=== PATIENT | male | born 1930 | race Caucasian/White ===

== ENCOUNTER 2016-03-18 14:58 | Inpatient (IN) | payer OTHER ==
--- NOTE | 2016-03-18 15:23 | PDOC ---
History of Present Illness - General History Source: Patient Exam Limitations: No Limitations - History of Present Illness Initial Comments: 03/18/16 15:51 The patient is an 85-year-old man, from [facility], accompanied by daughter, with a significant past medical history of COPD (requiring past intubations; on home O2 dependent on 2.5 L), hypertension, hypercholesterolemia , coronary artery disease, myocardial infarction, congestive heart failure, diabetes mellitus, atrial fibrillation, GERD and skin Ca who presents to the emergency department via EMS for evaluation of a blocked suprapubic catheter. 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 Patient's catheter was changed to a 24 Spanish catheter. Patient expresses concern as he noted blood in his urine, for which he has never experienced before. No other complaints. He denies chest pain, cough, shortness of breath, headache He denies nausea, vomiting, diarrhea dysuria, urinary frequency/urgency, flank pain, testicular pain or penile discharge. Allergies: Atenalol. Sulfamethoxazole. Trimethoprim. Past Surgical History: Cholecystectomy. Appendectomy. Stent Placement. Bilateral knee replacements. Left hip replacement Social History: He denies tobacco, ETOH and recreational drug use. Primary Care Physician: Dr. Asya Sharma [phone] <Kendra España - Last Filed: 03/18/16 18:27> <Zach Long - Last Filed: 03/18/16 18:39> - General Chief Complaint: Urinary Catheter Problem Stated Complaint: CATHERER BLEED Past History <Kendra España - Last Filed: 03/18/16 18:27> - Past Medical History Anemia: No Asthma: No Cancer: Yes (Skin) Cardiac Disorders: Yes (PA-2000, A-Fib) CVA: No COPD: Yes CHF: No Dementia: No Diabetes: Yes Dialysis: No GI Disorders: Yes (GERD) Disorders: Yes (suprapubic cath,bph, uti,retention) HTN: Yes Hypercholesterolemia: Yes Liver Disease: No Psychiatric Problems: Yes (anxiety) Seizures: No Thyroid Disease: No - Surgical History Abdominal Surgery: Yes (gallbladder removed) Appendectomy: Yes Cardiac Surgery: No (CARDIAC STENTS- 2000) Cholecystectomy: Yes Lung Surgery: No (BRONCHIAL THERMOPLASTY 2010) Neurologic Surgery: No Orthopedic Surgery: Yes (CAROLANN KNEE REPLACEMENT-2012,LEFT HIP REPLACEMENT-2011) - Immunization History Immunization Up to Date: No - Psycho/Social/Smoking Cessation Hx Anxiety: No Suicidal Ideation: No Smoking Status: No Smoking History: Never smoked Have you smoked in the past 12 months: No Number of Cigarettes Smoked Daily: 0 Information on smoking cessation initiated: No Hx Alcohol Use: No Drug/Substance Use Hx: No Substance Use Type: None Hx Substance Use Treatment: No <Zach Long - Last Filed: 03/18/16 18:39> - Past Medical History Allergies/Adverse Reactions: Allergies Allergy/AdvReac Type Severity Reaction Status Date / Time atenolol [From Tenormin] Allergy Intermediate RESPIRATORY Verified 03/18/16 15: 07 DISTRESS sulfamethoxazole Allergy Mild Rash Verified 03/18/16 15:07 [From Bactrim] trimethoprim [From Bactrim] Allergy Mild Rash Verified 03/18/16 15:07 BETABLOCKERS Allergy Uncoded 03/18/16 15:07 Home Medications: Ambulatory Orders Arformoterol Tartrate [Brovana -] 1 amp NEB BID amp 02/12/16 Clopidogrel Bisulfate [Plavix -] 75 mg PO DAILY tablet 02/12/16 Escitalopram Oxalate [Lexapro -] 20 mg PO DAILY tablet 02/12/16 Furosemide [Lasix -] 40 mg PO BID@0600,1400 tablet 02/12/16 Gabapentin [Neurontin -] 300 mg PO QID capsule 02/12/16 Insulin (Levemir) [Levemir Vial] 20 units SQ AM ml 02/12/16 Montelukast Na [Singulair -] 10 mg PO DAILY tablet 02/12/16 Pantoprazole Sodium [Protonix -] 40 mg PO DAILY tablet.ec 02/12/16 Albuterol 2.5/Ipratropium 0.5 [Duoneb -] 1 neb IH QID 03/01/16 Amlodipine Besylate [Norvasc -] 5 mg PO DAILY 03/01/16 Docusate Sodium [Colace -] 100 mg PO BID 03/01/16 Insulin (Levemir) [Levemir Vial] 12 units SQ HS 03/01/16 Insulin Lispro [Humalog] 100 unit SQ ASDIR 03/01/16 Oxybutynin Chloride [Oxybutynin Chloride ER] 5 mg PO DAILY 03/01/16 Potassium Chloride Oral Soln [KCl Oral Solution -] 20 meq PO BID 03/01/16 Acetaminophen [Tylenol .Regular Strength -] 325 mg PO Q12H PRN #0 tablet Albuterol 0.083% Nebulizer Sydni [Ventolin 0.083% Nebulizer Soln -] 1 amp NEB Q3H PRN #0 amp 03/09/16 Oxycodone HCl/Acetaminophen [Percocet 10-325 mg Tablet] 1 each PO BID PRN #30 03/09/16 Prednisone [Deltasone -] 40 mg PO DAILY #0 03/09/16 Review of Systems - Review of Systems Able to Perform ROS?: Yes Comments:: 03/18/16 15:49 GENERAL/CONSTITUTIONAL: No fever or chills. No weakness. HEAD, EYES, EARS, NOSE AND THROAT: No change in vision. No ear pain or discharge. No sore throat. CARDIOVASCULAR: No chest pain or shortness of breath. RESPIRATORY: No cough, wheezing, or hemoptysis. GASTROINTESTINAL: No nausea, vomiting, diarrhea or constipation. GENITOURINARY: Yes: +Catheter issues. +Hematuria. No dysuria, frequency. MUSCULOSKELETAL: No joint or muscle swelling or pain. No neck or back pain. SKIN: No rash NEUROLOGIC: No headache, vertigo, loss of consciousness, or change in strength/ sensation. ENDOCRINE: No increased thirst. No abnormal weight change. HEMATOLOGIC/LYMPHATIC: No anemia, easy bleeding, or history of blood clots. ALLERGIC/IMMUNOLOGIC: No hives or skin allergy. <Kendra España - Last Filed: 03/18/16 18:27> *Physical Exam - Vital Signs Last Vital Signs Temp Pulse Resp BP Pulse Ox 98.3 F 110 H 18 129/70 96 03/18/16 15:02 03/18/16 15:02 03/18/16 15:02 03/18/16 15:02 03/18/16 15:02 - Physical Exam Comments: 03/18/16 15:50 GENERAL: Awake, alert, and fully oriented, in no acute distress HEAD: No signs of trauma EYES: PERRLA, EOMI, sclera anicteric, conjunctiva clear ENT: Auricles normal inspection, hearing grossly normal, nares patent, oropharynx clear without exudates. Moist mucosa NECK: Normal ROM, supple, no lymphadenopathy, JVD, or masses LUNGS: Breath sounds equal, clear to auscultation bilaterally. No wheezes, and no crackles HEART: Regular rate and rhythm, normal S1 and S2, no murmurs, rubs or gallops ABDOMEN: Soft, there is suprapubic tenderness to palpation. Normoactive bowel sounds. No guarding, no rebound. No masses. : +Goldberg present in the penis with noted blood in the urine. EXTREMITIES: Normal range of motion, no edema. No clubbing or cyanosis. No cords, erythema, or tenderness NEUROLOGICAL: Cranial nerves II through XII grossly intact. Normal speech <Kendra España - Last Filed: 03/18/16 18:27> - Vital Signs Last Vital Signs Temp Pulse Resp BP Pulse Ox 98.3 F 110 H 18 129/70 96 03/18/16 15:02 03/18/16 15:02 03/18/16 15:02 03/18/16 15:02 03/18/16 15:02 <Zach Long - Last Filed: 03/18/16 18:39> ED Treatment Course - LABORATORY CBC & Chemistry Diagram: 03/18/16 15:41 03/18/16 16:40 <Kendra España - Last Filed: 03/18/16 18:27> - LABORATORY CBC & Chemistry Diagram: 03/18/16 15:41 03/18/16 16:40 <Zach Long - Last Filed: 03/18/16 18:39> *DC/Admit/Observation/Transfer - Attestations Scribe Attestion: 03/18/16 15:50 Documentation prepared by Kendra España, acting as medical art therapist for Zach Long MD. <Kendra España - Last Filed: 03/18/16 18:27> - Discharge Dispostion Admit: Yes <Zach Long - Last Filed: 03/18/16 18:39> Diagnosis at time of Disposition: Urinary tract infection, Recurrent urinary tract infection - Discharge Dispostion Condition at time of disposition: Guarded - Referrals Referrals: Asya Sharma MD [Primary Care Provider] -
[2016-03-18 16:02] LABS: MCHC 31.5 g/dl (32.0-35.9); MEAN CELL VOLUME 82.7 fl (80-96); MEAN PLT VOLUME 7.7 fl (7.5-11.1); PLATELET COUNT 280 K/MM3 (134-434); RDW 18.1 % (11.9-15.9); WHITE BLOOD COUNT 13.4 K/mm3 (4.0-10.0)
[2016-03-18 16:11] LABS: URINE APPEARANCE CLOUDY; URINE BILIRUBIN NEGATIVE (NEGATIVE); URINE BLOOD 3+ (NEGATIVE); URINE COLOR YELLOW; URINE GLUCOSE (UA) NEGATIVE (NEGATIVE); URINE KETONE NEGATIVE (NEGATIVE); URINE LEUK ESTERASE 3+ (NEGATIVE); URINE NITRITE NEGATIVE (NEGATIVE); URINE PROTEIN 2+ (NEGATIVE); URINE UROBILINOGEN NEGATIVE E.U./dl (0.2-1.0)
[2016-03-18 16:19] LABS: URINE BACTERIA RARE /hpf (NONE SEEN); URINE MUCUS RARE; URINE RBC 1243 /hpf (0-3); URINE WBC 36 /hpf (3-5)
[2016-03-18 16:37] LABS: PLATELET ESTIMATE ADEQUATE (NORMAL)
[2016-03-18 17:19] LABS: ANION GAP 8 (8-16); CALCIUM 9.2 mg/dL (8.5-10.1); CO2 35 mmol/L (21-32); CREATININE 0.9 mg/dL (0.7-1.3); GLUCOSE,RANDOM 251 mg/dL (74-106); SGOT/AST 14 U/L (15-37); SGPT/ALT 31 U/L (12-78)
[2016-03-18 17:20] LABS: ALK PHOS 107 U/L (45-117); BILIRUBIN,TOTAL 0.4 mg/dL (0.2-1.0); TOT PROT 5.9 g/dl (6.4-8.2)
[2016-03-18] MEDS ORDERED: VANCOMYCIN 1,000 MG in DEXTROSE 5%-WATER - 250 ML IVPB ONE (17:34)
[2016-03-18] MEDS ORDERED: VANCOMYCIN 1 GRAM (PRE-DOCKED) 250 ML IVPB ONE (17:37)
[2016-03-18] MEDS ORDERED: GENTAMICIN INJECTION 120 MG in DEXTROSE 5%-WATER - 250 ML IVPB SCH (17:45)
[2016-03-18] MEDS ORDERED: GENTAMICIN INJECTION 120 MG in DEXTROSE 5%-WATER - 250 ML IVPB ONE (17:49)
[2016-03-18] MEDS ORDERED: oxyCODONE HCL 5 MG TABLET PO PRN (20:00)
[2016-03-18] MEDS ORDERED: ACETAMINOPHEN 325 MG TABLET (FP) PO PRN (20:00)
[2016-03-18] MEDS: ERTAPENEM SODIUM 1 GM in SODIUM CHLORIDE 50 ML IVPB SCH (20:22)
[2016-03-18] MEDS: ALBUTEROL SO4 0.083% IH SOL 2.5 MG/3 ML VIAL.NEB. NEB PRN (22:57)
[2016-03-18] MEDS: POTASSIUM CHLORIDE 40 MEQ/30 ML UNIT DOSE CUP PO SCH (23:09)
[2016-03-18] MEDS: DOCUSATE SODIUM 100 MG CAPSULE (FP) PO SCH (23:09)
[2016-03-18] MEDS: GABAPENTIN 300 MG CAPSULE (FP) PO SCH (23:10)
[2016-03-18] MEDS: ACETAMINOPHEN 325 MG TABLET (FP) PO PRN (23:10)
[2016-03-18] MEDS: INSULIN DETEMIR 100 UNITS/ML MDV SQ SCH (23:11)
[2016-03-19 01:37] VITALS: BMI 30.9
[2016-03-19] MEDS: ALBUTEROL SO4 0.083% IH SOL 2.5 MG/3 ML VIAL.NEB. NEB PRN ×2 (02:24→07:01)
[2016-03-19] MEDS ORDERED: FUROSEMIDE 40 MG TABLET (FP) PO SCH (06:00)
[2016-03-19] MEDS: INSULIN DETEMIR 100 UNITS/ML MDV SQ SCH ×2 (06:43→21:55)
[2016-03-19] MEDS: INSULIN SLIDING SCALE (NOVOLOG) 1 VIAL SQ SCH ×3 (06:44→18:12)
[2016-03-19 08:24] LABS: EOSINOPHIL 1.9 % (0-4.5); MCH 27.2 pg (25.7-33.7); MCHC 32.6 g/dl (32.0-35.9); MEAN CELL VOLUME 83.3 fl (80-96); MEAN PLT VOLUME 7.3 fl (7.5-11.1); NEUTROPHILS 83.4 % (42.8-82.8); PLATELET COUNT 266 K/MM3 (134-434); RDW 18.2 % (11.9-15.9); WHITE BLOOD COUNT 11.5 K/mm3 (4.0-10.0)
[2016-03-19 08:41] LABS: ALBUMIN 2.9 g/dl (3.4-5.0); ALK PHOS 94 U/L (45-117); ANION GAP 6 (8-16); BILIRUBIN,TOTAL 0.5 mg/dL (0.2-1.0); CALCIUM 9.2 mg/dL (8.5-10.1); CO2 38 mmol/L (21-32); CREATININE 0.7 mg/dL (0.7-1.3); GLUCOSE,RANDOM 121 mg/dL (74-106); SGOT/AST 12 U/L (15-37); SGPT/ALT 28 U/L (12-78); TOT PROT 5.8 g/dl (6.4-8.2)
[2016-03-19] MEDS ORDERED: predniSONE 20 MG TABLET (UD) PO SCH (10:00)
[2016-03-19] MEDS ORDERED: PATIENT'S OWN MEDICATION (NON-FORMULARY) (Oxybutynin Chloride [Oxybutynin Chloride Er] 5 M PO SCH (10:00)
[2016-03-19] MEDS: ESCITALOPRAM OXALATE 20 MG TABLET (FP) PO SCH (10:29)
[2016-03-19] MEDS: MONTELUKAST NA 10 MG TABLET PO SCH (10:29)
[2016-03-19] MEDS: CLOPIDOGREL BISULFATE 75 MG TABLET (FP) PO SCH (10:29)
[2016-03-19] MEDS: PANTOPRAZOLE 40 MG TABLET (FP) PO SCH (10:29)
[2016-03-19] MEDS: SOLIFENACIN SUCCINATE 5 MG TAB (FP) PO SCH (10:29)
[2016-03-19] MEDS: GABAPENTIN 300 MG CAPSULE (FP) PO SCH ×4 (10:29→21:54)
[2016-03-19] MEDS: POTASSIUM CHLORIDE 40 MEQ/30 ML UNIT DOSE CUP PO SCH ×2 (10:29→21:54)
[2016-03-19] MEDS: DOCUSATE SODIUM 100 MG CAPSULE (FP) PO SCH ×2 (10:29→21:54)
[2016-03-19] MEDS: amLODIPine BESYLATE 5 MG TABLET (FP) PO SCH (10:29)
[2016-03-19] MEDS: ERTAPENEM SODIUM 1 GM in SODIUM CHLORIDE 50 ML IVPB SCH (10:30)
--- NOTE | 2016-03-19 10:44 | CONSULT ---
Consultation: REQUESTING PROVIDER: CONSULT REQUEST: We have been asked to medically evaluate this patient for UTI HISTORY OF PRESENT ILLNESS: History obtained from the chart, patient unable to speak a full sentence due to respiratory distress. 85 year old male was brought in from [facility] because of blocked suprapubic catheter. He was recently admitted at [facility] ( 03/03/2016) Patient's catheter was changed to a 24 [place] catheter on 02/01/2016. Patient now complaints of shortness of breath and palpitations. Denies chest pain, cough, abdominal pain, nausea or vomiting. Patient had severe respiratory distress this morning. Dr. Cuadra and Dr. Young were informed. Ordered IV Solumedrol 125mg and CXR (reports pending). Past Medical Hx: Restrictive lung disease x 30 years, A-fib, , H/O of klebsiella ESBL, h/o of C.diff, recent ICU admission for pneumonia, COPD on home Oxygen, Dependent on 2.5 L (Intubated once last year due to AE COPD), CHF, HTN, DM x 1 year, urinary and stool incontinence. Allergies: Atenolol, sulfamethoxazole, trimethoprim, Beta Blockers Surgical History: Left Hip replacement, B/L knee replacement, suprapubic catheter Hospitalization: 11 admissions in 2016. Last hospitalized 03/03/2016 for UTI Social Hx: Former Smoker Occassional alcohol intake No illicit drug use PCP: Dr. Asya Sharma [phone] REVIEW OF SYSTEMS: CONSTITUTIONAL: Absent: fever, chills, diaphoresis, generalized weakness, malaise, loss of appetite, weight change HEENT: Absent: rhinorrhea, nasal congestion, throat pain, throat swelling, difficulty swallowing, mouth swelling, ear pain, eye pain, visual changes CARDIOVASCULAR: Present: palpitations Absent: chest pain, syncope, , irregular heart rate, lightheadedness, peripheral edema RESPIRATORY: Present: shortness of breath Absent: cough, , dyspnea with exertion, orthopnea, wheezing, stridor, hemoptysis GASTROINTESTINAL: Absent: abdominal pain, abdominal distension, nausea, vomiting, diarrhea, constipation, melena, hematochezia GENITOURINARY: Absent: dysuria, frequency, urgency, hesitancy, hematuria, flank pain, genital pain MUSCULOSKELETAL: Absent: myalgia, arthralgia, joint swelling, back pain, neck pain SKIN: Absent: rash, itching, pallor HEMATOLOGIC/IMMUNOLOGIC: Absent: easy bleeding, easy bruising, lymphadenopathy, frequent infections ENDOCRINE: Absent: unexplained weight gain, unexplained weight loss, heat intolerance, cold intolerance NEUROLOGIC: Absent: headache, focal weakness or paresthesias, dizziness, unsteady gait, seizure, mental status changes, bladder or bowel incontinence PSYCHIATRIC: Absent: anxiety, depression, suicidal or homicidal ideation, hallucinations. PHYSICAL EXAMINATION Vital Signs - 24 hr 03/18/16 03/18/16 03/19/16 20:41 22:30 02:14 Temperature 98.3 F 98.3 F 98.2 F Pulse Rate 100 H 107 H Pulse Rate [ 87 Left Radial] Respiratory 20 20 22 Rate Blood Pressure 122/65 155/85 Blood Pressure 130/80 [Left Arm] O2 Sat by Pulse 99 Oximetry (%) 03/19/16 06:00 Temperature 98 F Pulse Rate 108 H Pulse Rate [ Left Radial] Respiratory 22 Rate Blood Pressure 154/86 Blood Pressure [Left Arm] O2 Sat by Pulse Oximetry (%) GENERAL: Patient lying 30 degrees in bed, obese, Awake, alert, and fully oriented, in moderate respiratory distress, nasal canula @ 4L, suprapubic catheter in place draining yellow urine. HEAD: Normal with no signs of trauma. EYES: EOM intact, no pallor or icterus. EARS, NOSE, THROAT: Ears normal NECK: Supple LUNGS: Gurgling sound heard, B/L coarse breath sounds, fine basal crackles, no wheeze HEART: Irregularly irregular, Tachycardic, normal S1 and S2 without murmur, rub or gallop. ABDOMEN: Umbilical hernia, Suprapubic catheter, Soft, nontender,distended +, normoactive bowel sounds, no guarding, no rebound, no masses. Hepatosplenomegaly couldn't be appreciated. MUSCULOSKELETAL: Normal range of motion at all joints. No bony deformities or tenderness. No CVA tenderness. UPPER EXTREMITIES: 2+ pulses, warm, well-perfused. No cyanosis. No clubbing. Cap refill <2 seconds. No peripheral edema. LOWER EXTREMITIES: 2+ pulses, warm, well-perfused. No calf tenderness. No peripheral edema. Decubiti ulcer Stage 1 NEUROLOGICAL: Cranial nerves II-XII intact. Unable to complete a sentence due to SOB but speech clear. Gait not observed PSYCHIATRIC: Cooperative. Good eye contact. SKIN: Warm, dry, normal turgor, no rashes or lesions noted. Laboratory Results - last 24 hr 03/18/16 03/19/16 03/19/16 23:05 05:36 07:30 WBC 11.5 H RBC 4.96 Hgb 13.5 Hct 41.3 MCV 83.3 MCHC 32.6 RDW 18.2 H Plt Count 266 MPV 7.3 L Neutrophils % 83.4 H Lymphocytes % 8.1 D Monocytes % 5.6 Eosinophils % 1.9 D Basophils % 1.0 Sodium Potassium Chloride Carbon Dioxide Anion Gap BUN Creatinine Creat Clearance w eGFR POC Glucometer 209 129 Random Glucose Calcium Total Bilirubin AST ALT Alkaline Phosphatase Total Protein Albumin 03/19/16 07:30 WBC RBC Hgb Hct MCV MCHC RDW Plt Count MPV Neutrophils % Lymphocytes % Monocytes % Eosinophils % Basophils % Sodium 145 Potassium 3.6 Chloride 101 Carbon Dioxide 38 H Anion Gap 6 L BUN 20 H Creatinine 0.7 D Creat Clearance w eGFR > 60 POC Glucometer Random Glucose 121 H D Calcium 9.2 Total Bilirubin 0.5 D AST 12 L ALT 28 Alkaline Phosphatase 94 Total Protein 5.8 L Albumin 2.9 L Active Medications Generic Name Dose Route Start Last Admin Trade Name Freq PRN Reason Stop Dose Admin Acetaminophen 650 mg 03/18/16 19:33 03/18/16 23:10 Tylenol - PO 650 mg Q6H PRN Administration FEVER OR PAIN Acetaminophen 325 mg 03/18/16 20:00 Tylenol - PO Q12H PRN FEVER OR PAIN Albuterol Sulfate 1 amp 03/18/16 19:33 03/19/16 07:01 Ventolin 0.083% Nebulizer Soln - NEB 1 amp Q4H PRN Administration SHORT OF BREATH/WHEEZING Amlodipine Besylate 5 mg 03/19/16 10:00 03/19/16 10:29 Norvasc - PO 5 mg DAILY ASHLEY Administration Clopidogrel Bisulfate 75 mg 03/19/16 10:00 03/19/16 10:29 Plavix - PO 75 mg DAILY ASHLEY Administration Docusate Sodium 100 mg 03/18/16 22:00 03/19/16 10:29 Colace - PO 100 mg BID ASHLEY Administration Escitalopram Oxalate 20 mg 03/19/16 10:00 03/19/16 10:29 Lexapro - PO 20 mg DAILY ASHLEY Administration Furosemide 40 mg 03/19/16 06:00 03/19/16 05:46 Lasix - PO 40 mg BID@0600,1400 ASHLEY Administration Gabapentin 300 mg 03/18/16 22:00 03/19/16 10:29 Neurontin - PO 300 mg QID ASHLEY Administration Ertapenem 1 gm/ Sodium 50 mls @ 50 mls/hr 03/18/16 19:45 03/19/16 10:30 Chloride IVPB 50 mls/hr DAILY ASHLEY Administration Insulin Aspart 1 vial 03/19/16 07:00 03/19/16 06:44 Novolog Vial Sliding Scale - SQ Not Given TIDAC COUNTS INCLUDE 234 BEDS AT THE [facility] Protocol Insulin Detemir 12 units 03/18/16 22:00 03/18/16 23:11 Levemir Vial SQ 12 units HS ASHLEY Administration Insulin Detemir 20 units 03/19/16 07:00 03/19/16 06:43 Levemir Vial SQ 20 units AM ASHLEY Administration Montelukast Sodium 10 mg 03/19/16 10:00 03/19/16 10:29 Singulair - PO 10 mg DAILY ASHLEY Administration Oxycodone HCl 10 mg 03/18/16 20:00 Roxicodone - PO Q12H PRN Pantoprazole Sodium 40 mg 03/19/16 10:00 03/19/16 10:29 Protonix - PO 40 mg DAILY ASHLEY Administration Potassium Chloride 20 meq 03/18/16 22:00 03/19/16 10:29 Kcl Oral Solution - PO 20 meq BID ASHLEY Administration Prednisone 40 mg 03/19/16 10:00 03/19/16 10:29 Deltasone - PO 40 mg DAILY ASHLEY Administration Solifenacin 5 mg 03/19/16 10:00 03/19/16 10:29 Vesicare - PO 5 mg DAILY ASHLEY Administration 03/18/2016: Renal USG: Atrophic kidneys, chronic renal disease, No Hydronephrosis. ASSESSMENT/PLAN:ASSESSMENT/PLAN: # Urinary tract infection Brought in for the evaluation of blocked suprapubic catheter Urine Blood-3 +, Leukocyte esterase 3+, RBC-1243, WBC-36 Urine culture pending H/O ESBL and multidrug resistance Patient to be continued on Ertapenem. Renal USG report mentioned above. # Respiratory: AE of COPD, likely precipated by infiltrate Respiratory distress, saturation 98% on 4L nasal oxygen CXR ordered, report pending May consider adding antibiotics after CXR results. Incentive Spirometry Respiratory therapist request On nasal canula, may need BiPap # Cardiovascular: H/O CHF On Lasix 40mg IV BID, looks like he is fluid overloaded. # Urology: Urinary incontinence Changed suprapubic catheter on 02/01/2016. Strict I/O's # FEN: Not on IV Fluids Electrolytes to be repeated tomorrow Na controlled diet # Prophylaxis: For GI: On Pantoprazole For DVT: On Scds Illness, Investigation and Plan of care explained to the patient. He verbalized understanding. Case seen and discussed with Dr. Mays. Thank you for the consultative opportunity. Visit type - Emergency Visit Emergency Visit: Yes ED Registration Date: 03/18/16 Care time: The patient presented to the Emergency Department on the above date and was hospitalized for further evaluation of their emergent condition. - New Patient This patient is new to me today: No - Critical Care Critical Care patient: No
[2016-03-19] MEDS ORDERED: FUROSEMIDE 40 MG/4 ML INJECTABLE VIAL ONE (11:18)
--- NOTE | 2016-03-19 11:23 | HP ---
Admitting History and Physical - Primary Care Physician PCP: Asya Sharma - Admission Chief Complaint: hematuria, UTI History of Present Illness: 85 yrs old male sent from [facility] for hematuria and UTI was recently admitted for UTI and cobb was changed that admission . Pt has an indwelling cobb . Pt examined today - he is SOB- wheezing and labored breathing. No chest pain , he looks tired.Not able to speak in full sentences Received vaco, gentamicin and Ertapenum Has multi- drug resistance UTI History Source: Patient, Medical Record - Past Medical History Cardiovascular: Yes: AFIB, CAD, HTN, Hyperlipdemia, [place] Pulmonary: Yes: COPD, O2 Dependent, Previously Intubated, Other (Restrictive Lung Disease/BRONCHIAL THERMOPLASTY) Gastrointestinal: Yes: GI Bleed, Other (hernia- umbilical hernia) Renal/: Yes: BPH, UTI, Other (suprapubic cath, surgical removal of penis) Heme/Onc: Yes: Anemia Musculoskeletal: Yes: Osteoarthritis Endocrine: Yes: Diabetes Mellitus - Past Surgical History Past Surgical History: Yes: Appendectomy, Cholecystectomy, Joint Replacement (B/ L knee, L-hip) - Smoking History Smoking history: Never smoked Have you smoked in the past 12 months: No Aproximately how many cigarettes per day: 0 - Alcohol/Substance Use Hx Alcohol Use: No History of Substance Use: reports: None - Social History ADL: Support Services Occupation: Retired History of Recent Travel: No Home Medications - Allergies Allergies/Adverse Reactions: Allergies Allergy/AdvReac Type Severity Reaction Status Date / Time atenolol [From Tenormin] Allergy Intermediate RESPIRATORY Verified 03/18/16 15: 07 DISTRESS sulfamethoxazole Allergy Mild Rash Verified 03/18/16 15:07 [From Bactrim] trimethoprim [From Bactrim] Allergy Mild Rash Verified 03/18/16 15:07 BETABLOCKERS Allergy Uncoded 03/18/16 15:07 - Home Medications Home Medications: Ambulatory Orders Arformoterol Tartrate [Brovana -] 1 amp NEB BID amp 02/12/16 Clopidogrel Bisulfate [Plavix -] 75 mg PO DAILY tablet 02/12/16 Escitalopram Oxalate [Lexapro -] 20 mg PO DAILY tablet 02/12/16 Furosemide [Lasix -] 40 mg PO BID@0600,1400 tablet 02/12/16 Gabapentin [Neurontin -] 300 mg PO QID capsule 02/12/16 Insulin (Levemir) [Levemir Vial] 20 units SQ AM ml 02/12/16 Montelukast Na [Singulair -] 10 mg PO DAILY tablet 02/12/16 Pantoprazole Sodium [Protonix -] 40 mg PO DAILY tablet.ec 02/12/16 Albuterol 2.5/Ipratropium 0.5 [Duoneb -] 1 neb IH QID 03/01/16 Amlodipine Besylate [Norvasc -] 5 mg PO DAILY 03/01/16 Docusate Sodium [Colace -] 100 mg PO BID 03/01/16 Insulin (Levemir) [Levemir Vial] 12 units SQ HS 03/01/16 Insulin Lispro [Humalog] 100 unit SQ ASDIR 03/01/16 Oxybutynin Chloride [Oxybutynin Chloride ER] 5 mg PO DAILY 03/01/16 Potassium Chloride Oral Soln [KCl Oral Solution -] 20 meq PO BID 03/01/16 Acetaminophen [Tylenol .Regular Strength -] 325 mg PO Q12H PRN #0 tablet Albuterol 0.083% Nebulizer Sydni [Ventolin 0.083% Nebulizer Soln -] 1 amp NEB Q3H PRN #0 amp 03/09/16 Oxycodone HCl/Acetaminophen [Percocet 10-325 mg Tablet] 1 each PO BID PRN #30 03/09/16 Prednisone [Deltasone -] 40 mg PO DAILY #0 03/09/16 Review of Systems - Review of Systems Constitutional: denies: Chills, Fever Cardiovascular: denies: Chest Pain Respiratory: reports: Cough, SOB Gastrointestinal: denies: Abdominal Pain, Diarrhea, Nausea, Rectal Bleeding Genitourinary: denies: Burning, Discharge, Flank Pain Physical Examination Vital Signs: Vital Signs Temperature 98 F 03/19/16 06:00 Pulse Rate 108 H 03/19/16 06:00 Respiratory Rate 22 03/19/16 06:00 Blood Pressure 154/86 03/19/16 06:00 O2 Sat by Pulse Oximetry (%) 99 03/18/16 20:41 Constitutional: Yes: No Distress, Calm Cardiovascular: Yes: Regular Rate and Rhythm Respiratory: Yes: Diminished, Rhonchi, Wheezes Gastrointestinal: Yes: Normal Bowel Sounds, Soft, Abdomen, Obese, Other (large ventral hernia). No: Distention, Tenderness Edema: No Neurological: Yes: Alert Labs: CBC, BMP 03/19/16 07:30 03/19/16 07:30 Imaging - Results Chest X-ray: Pending Ultrasound: Report Reviewed EKG: Pending Problem List - Problems (1) Recurrent UTI (urinary tract infection) Code(s): N39.0 - URINARY TRACT INFECTION, SITE NOT SPECIFIED (2) Urinary tract infection Code(s): N39.0 - URINARY TRACT INFECTION, SITE NOT SPECIFIED Qualifiers: Urinary tract infection type: acute cystitis Hematuria presence: with hematuria Qualified Code(s): N30.01 - Acute cystitis with hematuria (3) Acute on chronic respiratory failure with hypoxia and hypercapnia Code(s): J96.21 - ACUTE AND CHRONIC RESPIRATORY FAILURE WITH HYPOXIA J96.22 - ACUTE AND CHRONIC RESPIRATORY FAILURE WITH HYPERCAPNIA (4) Asthma Code(s): J45.909 - UNSPECIFIED ASTHMA, UNCOMPLICATED Qualifiers: Asthma severity: moderate persistent Asthma complication type: with acute exacerbation Qualified Code(s): J45.41 - Moderate persistent asthma with (acute) exacerbation (5) CAD (coronary artery disease) Code(s): I25.10 - ATHSCL HEART DISEASE OF [place] CORONARY ARTERY W/O ANG PCTRS Qualifiers: Coronary Disease-Associated Artery/Lesion type: [place] artery [place] vs. transplanted heart: [place] heart Associated angina: without angina Qualified Code(s): I25.10 - Atherosclerotic heart disease of [place] coronary artery without angina pectoris (6) CHF exacerbation Code(s): I50.9 - HEART FAILURE, UNSPECIFIED Qualifiers: Congestive heart failure type: diastolic Qualified Code(s): I50.33 - Acute on chronic diastolic (congestive) heart failure (7) COPD exacerbation Code(s): J44.1 - CHRONIC OBSTRUCTIVE PULMONARY DISEASE W (ACUTE) EXACERBATION Assessment/Plan PLAN Was given stat dose of Solumedrol and IV Lasix with nebs on O2 Pulmonary eval noted Spoke with ID and Pulmonary Apparently has been admitted frequently here every month continue with antibiotics per ID iv solumedrol Nebs, O2 DVT prophylaxis-- start lasix BID CXR and EKG pending will need to discuss GOC with daughter
[2016-03-19] MEDS ORDERED: methylPREDNISolone NA SUCC 125 MG/2 ML VIAL IVPB ONE (11:30)
[2016-03-19] MEDS: ALBUTEROL SO4 0.083% IH SOL 2.5 MG/3 ML VIAL.NEB. NEB SCH ×3 (11:30→22:01)
[2016-03-19] MEDS ORDERED: FUROSEMIDE 40 MG/4 ML INJECTABLE VIAL IVPUSH ONE (11:30)
--- NOTE | 2016-03-19 11:42 | CONSULT ---
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 Known to me from multiple previous admissions in 2014 and 2015. Admitted via the ER due to evaluation of a blocked suprapubic catheter. Called for evaluation of respiratory distress. Patient is awake and alert, in moderate distress. He was given an stat dose of Lasix and solumedrol and Albuterol. BiPAP has been ordered. CXR is pending. - History Source History Provided By: Patient, Medical Record Limitations to Obtaining History: Clinical Condition - Past Medical History Cardio/Vascular: Yes: AFIB, CAD, HTN, Hyperlipdemia, [place] Pulmonary: Yes: COPD, O2 Dependent, Previously Intubated, Other (Restrictive Lung Disease/BRONCHIAL THERMOPLASTY) Gastrointestinal: Yes: GI Bleed, Other (hernia- umbilical hernia) Renal/: Yes: BPH, UTI, Other (suprapubic cath, surgical removal of penis) Musculoskeletal: Yes: Osteoarthritis Endocrine: Yes: Diabetes Mellitus - Past Surgical History Past Surgical History: Yes: Appendectomy, Cholecystectomy, Joint Replacement (B/ L knee, L-hip) - Alcohol/Substance Use Hx Alcohol Use: No History of Substance Use: reports: None - Smoking History Smoking history: Never smoked Have you smoked in the past 12 months: No Aproximately how many cigarettes per day: 0 - Social History ADL: Support Services Occupation: Retired History of Recent Travel: No Home Medications - Allergies Allergies/Adverse Reactions: Allergies Allergy/AdvReac Type Severity Reaction Status Date / Time atenolol [From Tenormin] Allergy Intermediate RESPIRATORY Verified 03/18/16 15: 07 DISTRESS sulfamethoxazole Allergy Mild Rash Verified 03/18/16 15:07 [From Bactrim] trimethoprim [From Bactrim] Allergy Mild Rash Verified 03/18/16 15:07 BETABLOCKERS Allergy Uncoded 03/18/16 15:07 - Home Medications Home Medications: Ambulatory Orders Arformoterol Tartrate [Brovana -] 1 amp NEB BID amp 02/12/16 Clopidogrel Bisulfate [Plavix -] 75 mg PO DAILY tablet 02/12/16 Escitalopram Oxalate [Lexapro -] 20 mg PO DAILY tablet 02/12/16 Furosemide [Lasix -] 40 mg PO BID@0600,1400 tablet 02/12/16 Gabapentin [Neurontin -] 300 mg PO QID capsule 02/12/16 Insulin (Levemir) [Levemir Vial] 20 units SQ AM ml 02/12/16 Montelukast Na [Singulair -] 10 mg PO DAILY tablet 02/12/16 Pantoprazole Sodium [Protonix -] 40 mg PO DAILY tablet.ec 02/12/16 Albuterol 2.5/Ipratropium 0.5 [Duoneb -] 1 neb IH QID 03/01/16 Amlodipine Besylate [Norvasc -] 5 mg PO DAILY 03/01/16 Docusate Sodium [Colace -] 100 mg PO BID 03/01/16 Insulin (Levemir) [Levemir Vial] 12 units SQ HS 03/01/16 Insulin Lispro [Humalog] 100 unit SQ ASDIR 03/01/16 Oxybutynin Chloride [Oxybutynin Chloride ER] 5 mg PO DAILY 03/01/16 Potassium Chloride Oral Soln [KCl Oral Solution -] 20 meq PO BID 03/01/16 Acetaminophen [Tylenol .Regular Strength -] 325 mg PO Q12H PRN #0 tablet Albuterol 0.083% Nebulizer Sydni [Ventolin 0.083% Nebulizer Soln -] 1 amp NEB Q3H PRN #0 amp 03/09/16 Oxycodone HCl/Acetaminophen [Percocet 10-325 mg Tablet] 1 each PO BID PRN #30 03/09/16 Prednisone [Deltasone -] 40 mg PO DAILY #0 03/09/16 Review of Systems - Review of Systems Constitutional: reports: Malaise, Weakness. denies: Chills, Fever, Loss of Appetite, Night Sweats Eyes: reports: No Symptoms HENT: reports: No Symptoms Neck: reports: No Symptoms Cardiovascular: reports: Shortness of Breath. denies: Chest Pain, Edema, Palpitations Respiratory: reports: Cough, Orthopnea, Snoring, SOB, Wheezing. denies: Hemoptysis Gastrointestinal: reports: No Symptoms Genitourinary: reports: Other (Blocked suprapubic catheter) Musculoskeletal: reports: No Symptoms Integumentary: reports: No Symptoms Neurological: reports: No Symptoms Endocrine: reports: No Symptoms Hematology/Lymphatic: reports: No Symptoms Psychiatric: reports: No Symptoms Physical Exam Vital Sings: Vital Signs Temperature 98 F 03/19/16 06:00 Pulse Rate 108 H 03/19/16 06:00 Respiratory Rate 22 03/19/16 06:00 Blood Pressure 154/86 03/19/16 06:00 O2 Sat by Pulse Oximetry (%) 99 03/18/16 20:41 Constitutional: Yes: Moderate Distress Eyes: Yes: Conjunctiva Clear, EOM Intact HENT: Yes: Atraumatic, Normocephalic Neck: Yes: Supple, Trachea Midline Cardiovascular: Yes: Tachycardia Respiratory: Yes: Accessory Muscle Use, On Nasal O2, Rhonchi, SOB, Tachypnea, Wheezes. No: Stridor ...Inspection: Yes: WNL ...Clubbing: No Gastrointestinal: Yes: WNL, Normal Bowel Sounds, Soft, Abdomen, Obese Renal/: Yes: WNL Musculoskeletal: Yes: WNL Extremities: Yes: WNL Edema: No Peripheral Pulses WNL: Yes Integumentary: Yes: WNL Neurological: Yes: Alert, Oriented ...Motor Strength: WNL Psychiatric: Yes: WNL, Alert, Oriented Labs: CBC, BMP 03/19/16 07:30 03/19/16 07:30 Problem List - Problems (1) Recurrent UTI (urinary tract infection) Code(s): N39.0 - URINARY TRACT INFECTION, SITE NOT SPECIFIED (2) Acute on chronic respiratory failure with hypoxia and hypercapnia Code(s): J96.21 - ACUTE AND CHRONIC RESPIRATORY FAILURE WITH HYPOXIA J96.22 - ACUTE AND CHRONIC RESPIRATORY FAILURE WITH HYPERCAPNIA (3) CAD (coronary artery disease) Code(s): I25.10 - ATHSCL HEART DISEASE OF [place] CORONARY ARTERY W/O ANG PCTRS (4) COPD exacerbation Code(s): J44.1 - CHRONIC OBSTRUCTIVE PULMONARY DISEASE W (ACUTE) EXACERBATION (5) Depression Code(s): F32.9 - MAJOR DEPRESSIVE DISORDER, SINGLE EPISODE, UNSPECIFIED (6) Diabetes Code(s): E11.9 - TYPE 2 DIABETES MELLITUS WITHOUT COMPLICATIONS (7) History of ESBL Klebsiella pneumoniae infection Code(s): Z86.19 - PERSONAL HISTORY OF OTHER INFECTIOUS AND PARASITIC DISEASES (8) Hypoxia Code(s): R09.02 - HYPOXEMIA (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 Code(s): Z22.322 - CARRIER OR SUSPECTED CARRIER OF METHICILLIN RESIS STAPH (10) Neurogenic bladder Code(s): N31.9 - NEUROMUSCULAR DYSFUNCTION OF BLADDER, UNSPECIFIED (11) Obstructive sleep apnea Code(s): G47.33 - OBSTRUCTIVE SLEEP APNEA (ADULT) (PEDIATRIC) (12) Restrictive lung disease Code(s): J98.4 - OTHER DISORDERS OF LUNG (13) SOB (shortness of breath) Code(s): R06.02 - SHORTNESS OF BREATH (14) A-fib Code(s): I48.91 - UNSPECIFIED ATRIAL FIBRILLATION Qualifiers: Atrial fibrillation type: chronic Qualified Code(s): I48.2 - Chronic atrial fibrillation (15) Anemia Code(s): D64.9 - ANEMIA, UNSPECIFIED (16) Anxiety Code(s): F41.9 - ANXIETY DISORDER, UNSPECIFIED (17) Coronary arteriosclerosis Code(s): I25.10 - ATHSCL HEART DISEASE OF [place] CORONARY ARTERY W/O ANG PCTRS (18) History of atrial fibrillation Code(s): Z86.79 - PERSONAL HISTORY OF OTHER DISEASES OF THE CIRCULATORY SYSTEM (19) Hypertension Code(s): I10 - ESSENTIAL (PRIMARY) HYPERTENSION (20) Venous stasis dermatitis of both lower extremities Code(s): I83.11 - VARICOSE VEINS OF RIGHT LOWER EXTREMITY WITH INFLAMMATION I83.12 - VARICOSE VEINS OF LEFT LOWER EXTREMITY WITH INFLAMMATION Assessment/Plan PLAN: Solumedrol BD TX O2 NIPPV ABX per ID Lasix has been given STAT CXR ordered P care due to multiple/recurrent admissions to discuss GOC If no improvement -> monitored setting Will follow Thank you. Dr Cuadra
--- NOTE | 2016-03-19 12:53 | PN ---
Teaching Attending Note Name of Resident: Martha Rivas ATTENDING PHYSICIAN STATEMENT I saw and evaluated the patient. I reviewed the resident's note and discussed the case with the resident. I agree with the resident's findings and plan as documented. SUBJECTIVE: wheezing this am sent to ED yesterday with clogged SPT hematuria no fevers received vanco/gent in ED started on ertapenem for uti history of ESBL organisms in the past OBJECTIVE: Vital Signs Period Temp Pulse Resp BP Sys/Langley Pulse Ox Last 24 Hr 98 F-98.3 F 87-110 18-22 122-155/65-86 96-99 cor-rrr lungs bilateral wheeze abd +umbilical hernia +SPT ext trace edema CBC, BMP 03/19/16 07:30 03/19/16 07:30 cxray pending ASSESSMENT AND PLAN: clogged SPT- hematuria, now clearing, continue ertapenam pending cultures copd exacerbation history resistant organisms
[2016-03-19] MEDS: FUROSEMIDE 40 MG/4 ML INJECTABLE VIAL IVPUSH SCH (13:25)
[2016-03-19] MEDS ORDERED: methylPREDNISolone NA SUCC 125 MG/2 ML VIAL ONE (17:33)
[2016-03-19] MEDS: methylPREDNISolone NA SUCC 125 MG/2 ML VIAL IVPB SCH (18:10)
[2016-03-19] MEDS: HEPARIN NA (PORCINE) 5,000 UNITS/ML 1ML VIAL SQ SCH (21:55)
[2016-03-20] MEDS: ALBUTEROL SO4 0.083% IH SOL 2.5 MG/3 ML VIAL.NEB. NEB SCH ×7 (00:35→23:30)
[2016-03-20] MEDS: methylPREDNISolone NA SUCC 125 MG/2 ML VIAL IVPB SCH ×3 (02:06→17:18)
[2016-03-20] MEDS: FUROSEMIDE 40 MG/4 ML INJECTABLE VIAL IVPUSH SCH ×2 (06:23→14:23)
[2016-03-20] MEDS: INSULIN SLIDING SCALE (NOVOLOG) 1 VIAL SQ SCH ×3 (06:23→17:13)
[2016-03-20] MEDS: INSULIN DETEMIR 100 UNITS/ML MDV SQ SCH ×2 (06:23→22:05)
[2016-03-20 08:28] LABS: ANION GAP 8 (8-16); CALCIUM 9.6 mg/dL (8.5-10.1); CO2 37 mmol/L (21-32); GLUCOSE,RANDOM 229 mg/dL (74-106)
[2016-03-20 08:30] LABS: ALK PHOS 94 U/L (45-117); BILIRUBIN,TOTAL 0.6 mg/dL (0.2-1.0); CREATININE 0.8 mg/dL (0.7-1.3); SGOT/AST 12 U/L (15-37); SGPT/ALT 25 U/L (12-78); TOT PROT 5.9 g/dl (6.4-8.2)
[2016-03-20 08:39] LABS: MCH 27.4 pg (25.7-33.7); MEAN PLT VOLUME 7.4 fl (7.5-11.1); PLATELET COUNT 289 K/MM3 (134-434); RDW 18.1 % (11.9-15.9); WHITE BLOOD COUNT 10.6 K/mm3 (4.0-10.0)
[2016-03-20] MEDS: ERTAPENEM SODIUM 1 GM in SODIUM CHLORIDE 50 ML IVPB SCH (10:17)
[2016-03-20] MEDS: CLOPIDOGREL BISULFATE 75 MG TABLET (FP) PO SCH (10:18)
[2016-03-20] MEDS: SOLIFENACIN SUCCINATE 5 MG TAB (FP) PO SCH (10:18)
[2016-03-20] MEDS: DOCUSATE SODIUM 100 MG CAPSULE (FP) PO SCH ×2 (10:18→22:05)
[2016-03-20] MEDS: HEPARIN NA (PORCINE) 5,000 UNITS/ML 1ML VIAL SQ SCH ×2 (10:18→22:06)
[2016-03-20] MEDS: PANTOPRAZOLE 40 MG TABLET (FP) PO SCH (10:18)
[2016-03-20] MEDS: amLODIPine BESYLATE 5 MG TABLET (FP) PO SCH (10:18)
[2016-03-20] MEDS: GABAPENTIN 300 MG CAPSULE (FP) PO SCH ×4 (10:18→22:05)
[2016-03-20] MEDS: POTASSIUM CHLORIDE 40 MEQ/30 ML UNIT DOSE CUP PO SCH ×2 (10:18→22:05)
[2016-03-20] MEDS: MONTELUKAST NA 10 MG TABLET PO SCH (10:19)
[2016-03-20] MEDS: ESCITALOPRAM OXALATE 20 MG TABLET (FP) PO SCH (10:19)
--- NOTE | 2016-03-20 12:12 | PN ---
Progress Note, Physician Chief Complaint: more awake, not in distress He is more calm on BIPAP now - Current Medication List Current Medications: Active Medications Acetaminophen (Tylenol -) 650 mg PO Q6H PRN PRN Reason: FEVER OR PAIN Last Admin: 03/18/16 23:10 Dose: 650 mg Acetaminophen (Tylenol -) 325 mg PO Q12H PRN PRN Reason: FEVER OR PAIN Albuterol Sulfate (Ventolin 0.083% Nebulizer Soln -) 1 amp NEB Q3H [facility] Last Admin: 03/20/16 06:00 Dose: 1 amp Amlodipine Besylate (Norvasc -) 5 mg PO DAILY [facility] Last Admin: 03/20/16 10:18 Dose: 5 mg Clopidogrel Bisulfate (Plavix -) 75 mg PO DAILY [facility] Last Admin: 03/20/16 10:18 Dose: 75 mg Docusate Sodium (Colace -) 100 mg PO BID [facility] Last Admin: 03/20/16 10:18 Dose: 100 mg Escitalopram Oxalate (Lexapro -) 20 mg PO DAILY [facility] Last Admin: 03/20/16 10:19 Dose: 20 mg Furosemide (Lasix Injection -) 40 mg IVPUSH BID@0600,1400 [facility] Last Admin: 03/20/16 06:23 Dose: 40 mg Gabapentin (Neurontin -) 300 mg PO QID [facility] Last Admin: 03/20/16 10:18 Dose: 300 mg Heparin Sodium (Porcine) (Heparin -) 5,000 unit SQ BID [facility] Last Admin: 03/20/16 10:18 Dose: 5,000 unit Ertapenem 1 gm/ Sodium (Chloride) 50 mls @ 50 mls/hr IVPB DAILY [facility] Last Admin: 03/20/16 10:17 Dose: 50 mls/hr Insulin Aspart (Novolog Vial Sliding Scale -) 1 vial SQ TIDAC [facility] PRN Reason: Protocol Last Admin: 03/20/16 06:23 Dose: 4 units Insulin Detemir (Levemir Vial) 12 units SQ HS [facility] Last Admin: 03/19/16 21:55 Dose: 12 units Insulin Detemir (Levemir Vial) 20 units SQ AM [facility] Last Admin: 03/20/16 06:23 Dose: 20 units Methylprednisolone Sodium Succinate (Solu-Medrol -) 80 mg IVPB Q8H-IV [facility] Last Admin: 03/20/16 10:18 Dose: 80 mg Montelukast Sodium (Singulair -) 10 mg PO DAILY [facility] Last Admin: 03/20/16 10:19 Dose: 10 mg Oxycodone HCl (Roxicodone -) 10 mg PO Q12H PRN Pantoprazole Sodium (Protonix -) 40 mg PO DAILY [facility] Last Admin: 03/20/16 10:18 Dose: 40 mg Potassium Chloride (Kcl Oral Solution -) 20 meq PO BID [facility] Last Admin: 03/20/16 10:18 Dose: 20 meq Solifenacin (Vesicare -) 5 mg PO DAILY [facility] Last Admin: 03/20/16 10:18 Dose: 5 mg - Objective Vital Signs: Vital Signs Temperature 97.7 F 03/20/16 06:00 Pulse Rate 99 H 03/20/16 06:00 Respiratory Rate 22 03/20/16 09:00 Blood Pressure 137/88 03/20/16 06:00 O2 Sat by Pulse Oximetry (%) 97 03/20/16 09:00 Constitutional: Yes: No Distress, Calm Cardiovascular: Yes: Regular Rate and Rhythm Respiratory: Yes: Diminished, Rhonchi Gastrointestinal: Yes: Normal Bowel Sounds, Soft, Abdomen, Obese, Other ( ventral hernia). No: Distention, Tenderness Genitourinary: Yes: Other (suprapubic cath+) Edema: Yes Psychiatric: Yes: Alert, Oriented Labs: CBC, BMP 03/20/16 06:00 03/20/16 06:00 Problem List - Problems (1) Recurrent UTI (urinary tract infection) Code(s): N39.0 - URINARY TRACT INFECTION, SITE NOT SPECIFIED (2) Urinary tract infection Code(s): N39.0 - URINARY TRACT INFECTION, SITE NOT SPECIFIED Qualifiers: Urinary tract infection type: acute cystitis Hematuria presence: with hematuria Qualified Code(s): N30.01 - Acute cystitis with hematuria (3) Acute on chronic respiratory failure with hypoxia and hypercapnia Code(s): J96.21 - ACUTE AND CHRONIC RESPIRATORY FAILURE WITH HYPOXIA J96.22 - ACUTE AND CHRONIC RESPIRATORY FAILURE WITH HYPERCAPNIA (4) Asthma Code(s): J45.909 - UNSPECIFIED ASTHMA, UNCOMPLICATED Qualifiers: Asthma severity: moderate persistent Asthma complication type: with acute exacerbation Qualified Code(s): J45.41 - Moderate persistent asthma with (acute) exacerbation (5) CAD (coronary artery disease) Code(s): I25.10 - ATHSCL HEART DISEASE OF [place] CORONARY ARTERY W/O ANG PCTRS Qualifiers: Coronary Disease-Associated Artery/Lesion type: pala artery [place] vs. transplanted heart: pala heart Associated angina: without angina Qualified Code(s): I25.10 - Atherosclerotic heart disease of [place] coronary artery without angina pectoris (6) CHF exacerbation Code(s): I50.9 - HEART FAILURE, UNSPECIFIED Qualifiers: Congestive heart failure type: diastolic Qualified Code(s): I50.33 - Acute on chronic diastolic (congestive) heart failure (7) COPD exacerbation Code(s): J44.1 - CHRONIC OBSTRUCTIVE PULMONARY DISEASE W (ACUTE) EXACERBATION Assessment/Plan PLAN continue with Solumedrol, Lasix spoke with pt about DNR/DNI along with Apryl Orellana and Rev Drummond. Pt does not want to be intubated spoke with daughter on O2 continue with antibiotics per ID Nebs, O2 DVT prophylaxis-- prognosis guarded
--- NOTE | 2016-03-20 13:57 | PN ---
Physical Exam: SUBJECTIVE: Patient seen and examined at bed side this morning. Patient on BiPAP. Patient mentions he has difficulty in breathing. Rest of the ROS difficult to obtain. OBJECTIVE: Vital Signs Period Temp Pulse Resp BP Sys/Langley Pulse Ox Last 24 Hr 97.7 F-98.2 F 99-109 20-22 136-158/61-88 97-98 GENERAL: Patient lying 30 degrees in bed, obese, Awake, in moderate respiratory distress, on BiPAP, suprapubic catheter in place draining yellow urine. HEAD: Normal with no signs of trauma. EYES: EOM intact, no pallor or icterus. EARS, NOSE, THROAT: Ears normal NECK: Supple LUNGS: Gurgling sound heard, B/L coarse breath sounds, fine basal crackles, no wheeze HEART: Irregularly irregular, Tachycardic, normal S1 and S2 without murmur, rub or gallop. ABDOMEN: Umbilical hernia, Suprapubic catheter, Soft, nontender,distended +, normoactive bowel sounds, no guarding, no rebound, no masses. Hepatosplenomegaly couldn't be appreciated. MUSCULOSKELETAL: Normal range of motion at all joints. No bony deformities or tenderness. No CVA tenderness. UPPER EXTREMITIES: 2+ pulses, warm, well-perfused. No cyanosis. No clubbing. Cap refill <2 seconds. No peripheral edema. LOWER EXTREMITIES: 2+ pulses, warm, well-perfused. No calf tenderness. No peripheral edema. Decubiti ulcer Stage 1 NEUROLOGICAL: Cranial nerves II-XII intact. Unable to complete a sentence due to SOB but speech clear. Gait not observed PSYCHIATRIC: Cooperative. Good eye contact. SKIN: Warm, dry, normal turgor, no rashes or lesions noted. Laboratory Results - last 24 hr 03/19/16 03/20/16 03/20/16 21:52 06:00 06:00 WBC 10.6 H RBC 5.05 Hgb 13.8 Hct 41.9 MCV 83.0 MCHC 33.0 RDW 18.1 H Plt Count 289 MPV 7.4 L Sodium 143 Potassium 3.7 Chloride 98 Carbon Dioxide 37 H Anion Gap 8 BUN 26 H D Creatinine 0.8 Creat Clearance w eGFR > 60 POC Glucometer 197 Random Glucose 229 H D Calcium 9.6 Total Bilirubin 0.6 AST 12 L ALT 25 Alkaline Phosphatase 94 Total Protein 5.9 L Albumin 3.0 L 03/20/16 06:21 WBC RBC Hgb Hct MCV MCHC RDW Plt Count MPV Sodium Potassium Chloride Carbon Dioxide Anion Gap BUN Creatinine Creat Clearance w eGFR POC Glucometer 218 Random Glucose Calcium Total Bilirubin AST ALT Alkaline Phosphatase Total Protein Albumin Active Medications Generic Name Dose Route Start Last Admin Trade Name Freq PRN Reason Stop Dose Admin Acetaminophen 650 mg 03/18/16 19:33 03/18/16 23:10 Tylenol - PO 650 mg Q6H PRN Administration FEVER OR PAIN Acetaminophen 325 mg 03/18/16 20:00 Tylenol - PO Q12H PRN FEVER OR PAIN Albuterol Sulfate 1 amp 03/19/16 11:30 03/20/16 06:00 Ventolin 0.083% Nebulizer Soln - NEB 1 amp Q3H [facility] Administration Amlodipine Besylate 5 mg 03/19/16 10:00 03/20/16 10:18 Norvasc - PO 5 mg DAILY [facility] Administration Clopidogrel Bisulfate 75 mg 03/19/16 10:00 03/20/16 10:18 Plavix - PO 75 mg DAILY [facility] Administration Docusate Sodium 100 mg 03/18/16 22:00 03/20/16 10:18 Colace - PO 100 mg BID [facility] Administration Escitalopram Oxalate 20 mg 03/19/16 10:00 03/20/16 10:19 Lexapro - PO 20 mg DAILY [facility] Administration Furosemide 40 mg 03/19/16 14:00 03/20/16 06:23 Lasix Injection - IVPUSH 40 mg BID@0600,1400 [facility] Administration Gabapentin 300 mg 03/18/16 22:00 03/20/16 10:18 Neurontin - PO 300 mg QID [facility] Administration Heparin Sodium (Porcine) 5,000 unit 03/19/16 22:00 03/20/16 10:18 Heparin - SQ 5,000 unit BID [facility] Administration Ertapenem 1 gm/ Sodium 50 mls @ 50 mls/hr 03/18/16 19:45 03/20/16 10:17 Chloride IVPB 50 mls/hr DAILY [facility] Administration Insulin Aspart 1 vial 03/20/16 07:00 03/20/16 06:23 Novolog Vial Sliding Scale - SQ 4 units TIDAC [facility] Administration Protocol Insulin Detemir 12 units 03/18/16 22:00 03/19/16 21:55 Levemir Vial SQ 12 units HS [facility] Administration Insulin Detemir 20 units 03/19/16 07:00 03/20/16 06:23 Levemir Vial SQ 20 units AM [facility] Administration Methylprednisolone Sodium Succinate 80 mg 03/19/16 18:00 03/20/16 10:18 Solu-Medrol - IVPB 80 mg Q8H-IV [facility] Administration Montelukast Sodium 10 mg 03/19/16 10:00 03/20/16 10:19 Singulair - PO 10 mg DAILY [facility] Administration Oxycodone HCl 10 mg 03/18/16 20:00 Roxicodone - PO Q12H PRN Pantoprazole Sodium 40 mg 03/19/16 10:00 03/20/16 10:18 Protonix - PO 40 mg DAILY [facility] Administration Potassium Chloride 20 meq 03/18/16 22:00 03/20/16 10:18 Kcl Oral Solution - PO 20 meq BID [facility] Administration Solifenacin 5 mg 03/19/16 10:00 03/20/16 10:18 Vesicare - PO 5 mg DAILY [facility] Administration 03/18/2016: Renal USG: Atrophic kidneys, chronic renal disease, No Hydronephrosis. ASSESSMENT/PLAN:ASSESSMENT/PLAN: # Urinary tract infection Brought in for the evaluation of blocked suprapubic catheter Urine Blood-3 +, Leukocyte esterase 3+, RBC-1243, WBC-36 Urine culture -Proteus species H/O ESBL and multidrug resistance Patient to be continued on Ertapenem. Renal USG report mentioned above. # Respiratory: AE of COPD Respiratory distress, saturation 98% on 4L nasal oxygen On IV Methylprednisolone 60mg IVPB Q8H. CXR showed fluid in horizontal fissure, no infiltrate. Incentive Spirometry Respiratory therapist request On BiPap # Cardiovascular: H/O CHF On Lasix 40mg IV BID, looks like he is fluid overloaded. # Urology: Urinary incontinence Changed suprapubic catheter on 02/01/2016. Strict I/O's # FEN: Not on IV Fluids Electrolytes to be repeated tomorrow Diabetic diet # Prophylaxis: For GI: On Pantoprazole For DVT: On Scds Illness, Investigation and Plan of care explained to the patient. He verbalized understanding. Case seen and discussed with Dr. Mays. Thank you for the consultative opportunity. Visit type - Emergency Visit Emergency Visit: Yes ED Registration Date: 03/18/16 Care time: The patient presented to the Emergency Department on the above date and was hospitalized for further evaluation of their emergent condition. - New Patient This patient is new to me today: No - Critical Care Critical Care patient: No
--- NOTE | 2016-03-20 14:10 | PN ---
Progress Note (short form) - Note Progress Note: PULMONARY States breathing is better on BiPAP. +cough but unable to produce sputum. No fevers or chills. Last Vital Signs Temp Pulse Resp BP Pulse Ox 97.7 F 99 H 22 137/88 97 03/20/16 06:00 03/20/16 06:00 03/20/16 09:00 03/20/16 06:00 03/20/16 09:00 Intake & Output 03/17/16 03/18/16 03/19/16 03/20/16 23:59 23:59 23:59 23:59 Intake Total 850 Output Total 400 2050 200 Balance -400 -1200 -200 Weight 216 lb Gen: tachypneic on BiPAP Heart: RRR Lung: distant breath sounds, no wheezes appreciated Abd: soft, nontender Ext: no edema CBC, BMP 03/20/16 06:00 03/20/16 06:00 Active Medications Acetaminophen (Tylenol -) 650 mg PO Q6H PRN PRN Reason: FEVER OR PAIN Last Admin: 03/18/16 23:10 Dose: 650 mg Acetaminophen (Tylenol -) 325 mg PO Q12H PRN PRN Reason: FEVER OR PAIN Albuterol Sulfate (Ventolin 0.083% Nebulizer Soln -) 1 amp NEB Q3H [facility] Last Admin: 03/20/16 06:00 Dose: 1 amp Amlodipine Besylate (Norvasc -) 5 mg PO DAILY [facility] Last Admin: 03/20/16 10:18 Dose: 5 mg Clopidogrel Bisulfate (Plavix -) 75 mg PO DAILY [facility] Last Admin: 03/20/16 10:18 Dose: 75 mg Docusate Sodium (Colace -) 100 mg PO BID [facility] Last Admin: 03/20/16 10:18 Dose: 100 mg Escitalopram Oxalate (Lexapro -) 20 mg PO DAILY [facility] Last Admin: 03/20/16 10:19 Dose: 20 mg Furosemide (Lasix Injection -) 40 mg IVPUSH BID@0600,1400 [facility] Last Admin: 03/20/16 06:23 Dose: 40 mg Gabapentin (Neurontin -) 300 mg PO QID [facility] Last Admin: 03/20/16 10:18 Dose: 300 mg Heparin Sodium (Porcine) (Heparin -) 5,000 unit SQ BID [facility] Last Admin: 03/20/16 10:18 Dose: 5,000 unit Ertapenem 1 gm/ Sodium (Chloride) 50 mls @ 50 mls/hr IVPB DAILY [facility] Last Admin: 03/20/16 10:17 Dose: 50 mls/hr Insulin Aspart (Novolog Vial Sliding Scale -) 1 vial SQ TIDAC [facility] PRN Reason: Protocol Last Admin: 03/20/16 06:23 Dose: 4 units Insulin Detemir (Levemir Vial) 12 units SQ HS [facility] Last Admin: 03/19/16 21:55 Dose: 12 units Insulin Detemir (Levemir Vial) 20 units SQ AM [facility] Last Admin: 03/20/16 06:23 Dose: 20 units Methylprednisolone Sodium Succinate (Solu-Medrol -) 80 mg IVPB Q8H-IV [facility] Last Admin: 03/20/16 10:18 Dose: 80 mg Montelukast Sodium (Singulair -) 10 mg PO DAILY [facility] Last Admin: 03/20/16 10:19 Dose: 10 mg Oxycodone HCl (Roxicodone -) 10 mg PO Q12H PRN Pantoprazole Sodium (Protonix -) 40 mg PO DAILY [facility] Last Admin: 03/20/16 10:18 Dose: 40 mg Potassium Chloride (Kcl Oral Solution -) 20 meq PO BID [facility] Last Admin: 03/20/16 10:18 Dose: 20 meq Solifenacin (Vesicare -) 5 mg PO DAILY [facility] Last Admin: 03/20/16 10:18 Dose: 5 mg A/P Acute COPD Exacerbation Chronic Hypoxic Respiratory Failure UTI Suprapubic Catheter CAD Atrial fibrillation DANK - can try ventimask 40% during day, place back on BiPAP at night - inhaled bronchodilators - chest PT - will decrease steroids - continue antibiotics - f/u proteus sensitivities - continue lasix - monitor urine output, creatinine - repeat CXR in AM - DVT prophylaxis
--- NOTE | 2016-03-20 16:04 | EKG ---
Test Reason : Blood Pressure : / mmHG Vent. Rate : 106 BPM Atrial Rate : 106 BPM P-R Int : 208 ms QRS Dur : 132 ms QT Int : 348 ms P-R-T Axes : -05 000 -11 degrees QTc Int : 462 ms SINUS TACHYCARDIA RIGHT BUNDLE BRANCH BLOCK POSSIBLE LATERAL INFARCT (CITED ON OR BEFORE 09-OCT-2015) INFERIOR INFARCT (CITED ON OR BEFORE 09-OCT-2015) ABNORMAL ECG WHEN COMPARED WITH ECG OF 01-MAR-2016 20:35, QUESTIONABLE CHANGE IN INITIAL FORCES OF LATERAL LEADS QT HAS SHORTENED Confirmed by MAXIM PETIT, WALLY ([id number]) on 03/20/2016 4:03:28 PM Referred By: HUGH PINEDA Confirmed By:WALLY PAN MD
--- NOTE | 2016-03-20 17:02 | PN ---
Teaching Attending Note Name of Resident: Martha Rivas ATTENDING PHYSICIAN STATEMENT I saw and evaluated the patient. I reviewed the resident's note and discussed the case with the resident. I agree with the resident's findings and plan as documented. SUBJECTIVE: doing much better, off bipap this afternoon alert and conversant OBJECTIVE: Vital Signs Period Temp Pulse Resp BP Sys/Langley Pulse Ox Last 24 Hr 97.7 F-98.2 F 76-102 20-22 127-144/61-88 97-98 cor-rrr lungs bilateral rhonchi abd soft ext no edema CBC, BMP 03/20/16 06:00 03/20/16 06:00 Microbiology 03/18/16 15:49 Urine - Urine - Catheterized Urine Culture - Preliminary Proteus Species 03/18/16 20:00 Blood - Peripheral Venous Blood Culture - Preliminary NO GROWTH OBTAINED AFTER 24 HOURS, INCUBATION TO CONTINUE FOR 4 DAYS. 03/18/16 19:50 Blood - Peripheral Venous Blood Culture - Preliminary NO GROWTH OBTAINED AFTER 24 HOURS, INCUBATION TO CONTINUE FOR 4 DAYS. ASSESSMENT AND PLAN: doing much better clinically blocked spt now working- do not suspect he has UTI, SPT culture will always be positive- will d/c antibiotics in am if blood cultures are negative copd exacerbation- improved
[2016-03-21] MEDS: methylPREDNISolone NA SUCC 125 MG/2 ML VIAL IVPB SCH ×3 (02:50→18:12)
[2016-03-21] MEDS: ALBUTEROL SO4 0.083% IH SOL 2.5 MG/3 ML VIAL.NEB. NEB SCH ×9 (02:54→23:44)
[2016-03-21] MEDS: FUROSEMIDE 40 MG/4 ML INJECTABLE VIAL IVPUSH SCH ×2 (06:28→15:16)
[2016-03-21] MEDS: INSULIN DETEMIR 100 UNITS/ML MDV SQ SCH ×2 (06:29→21:47)
[2016-03-21] MEDS: INSULIN SLIDING SCALE (NOVOLOG) 1 VIAL SQ SCH ×3 (06:29→18:11)
--- NOTE | 2016-03-21 09:48 | PN ---
Progress Note (short form) - Note Progress Note: Awake on NC O2. Mildly tachypneic at rest. Reports that he did not use NIPPV last night (nurse reports that he did). Some mild subjective improvement in breathing. Intake & Output 03/18/16 03/19/16 03/20/16 03/21/16 23:59 23:59 23:59 23:59 Intake Total 850 750 50 Output Total 400 2050 1500 350 Balance -400 -1200 -750 -300 Weight 216 lb Last Vital Signs Temp Pulse Resp BP Pulse Ox 98.6 F 104 H 22 184/96 97 03/21/16 07:48 03/21/16 07:48 03/21/16 07:48 03/21/16 07:48 03/20/16 22:45 Active Medications Acetaminophen (Tylenol -) 650 mg PO Q6H PRN PRN Reason: FEVER OR PAIN Last Admin: 03/18/16 23:10 Dose: 650 mg Acetaminophen (Tylenol -) 325 mg PO Q12H PRN PRN Reason: FEVER OR PAIN Albuterol Sulfate (Ventolin 0.083% Nebulizer Soln -) 1 amp NEB Q3H [facility] Last Admin: 03/21/16 06:57 Dose: 1 amp Amlodipine Besylate (Norvasc -) 5 mg PO DAILY [facility] Last Admin: 03/20/16 10:18 Dose: 5 mg Clopidogrel Bisulfate (Plavix -) 75 mg PO DAILY [facility] Last Admin: 03/20/16 10:18 Dose: 75 mg Docusate Sodium (Colace -) 100 mg PO BID [facility] Last Admin: 03/20/16 22:05 Dose: 100 mg Escitalopram Oxalate (Lexapro -) 20 mg PO DAILY [facility] Last Admin: 03/20/16 10:19 Dose: 20 mg Furosemide (Lasix Injection -) 40 mg IVPUSH BID@0600,1400 [facility] Last Admin: 03/21/16 06:28 Dose: 40 mg Gabapentin (Neurontin -) 300 mg PO QID [facility] Last Admin: 03/20/16 22:05 Dose: 300 mg Heparin Sodium (Porcine) (Heparin -) 5,000 unit SQ BID [facility] Last Admin: 03/20/16 22:06 Dose: 5,000 unit Ertapenem 1 gm/ Sodium (Chloride) 50 mls @ 50 mls/hr IVPB DAILY [facility] Last Admin: 03/20/16 10:17 Dose: 50 mls/hr Insulin Aspart (Novolog Vial Sliding Scale -) 1 vial SQ TIDAC [facility] PRN Reason: Protocol Last Admin: 03/21/16 06:29 Dose: 8 units Insulin Detemir (Levemir Vial) 12 units SQ HS [facility] Last Admin: 03/20/16 22:05 Dose: 12 units Insulin Detemir (Levemir Vial) 20 units SQ AM [facility] Last Admin: 03/21/16 06:29 Dose: 20 units Methylprednisolone Sodium Succinate (Solu-Medrol -) 60 mg IVPB Q8H-IV [facility] Last Admin: 03/21/16 02:50 Dose: 60 mg Montelukast Sodium (Singulair -) 10 mg PO DAILY [facility] Last Admin: 03/20/16 10:19 Dose: 10 mg Oxycodone HCl (Roxicodone -) 10 mg PO Q12H PRN Pantoprazole Sodium (Protonix -) 40 mg PO DAILY [facility] Last Admin: 03/20/16 10:18 Dose: 40 mg Potassium Chloride (Kcl Oral Solution -) 20 meq PO BID [facility] Last Admin: 03/20/16 22:05 Dose: 20 meq Solifenacin (Vesicare -) 5 mg PO DAILY [facility] Last Admin: 03/20/16 10:18 Dose: 5 mg Gen: Mildly tachypneic on NC O2 Heart: RRR Lung: distant breath sounds, mild expiratory wheezing Abd: soft, nontender Ext: no edema Laboratory Results - last 24 hr 03/21/16 06:28 POC Glucometer 325 A/P Acute COPD Exacerbation Acute on Chronic Hypoxic Respiratory Failure UTI Suprapubic Catheter CAD Atrial fibrillation DANK - NC O2 alternating with VM 40% during day - BiPAP at night and PRN - inhaled bronchodilators - chest PT - will decrease steroids in AM if stable/improved - ABX per ID - Lasix - monitor urine output, creatinine - DVT prophylaxis Dr Cuadra Problem List - Problems (1) Recurrent UTI (urinary tract infection) Code(s): N39.0 - URINARY TRACT INFECTION, SITE NOT SPECIFIED (2) Acute on chronic respiratory failure with hypoxia and hypercapnia Code(s): J96.21 - ACUTE AND CHRONIC RESPIRATORY FAILURE WITH HYPOXIA J96.22 - ACUTE AND CHRONIC RESPIRATORY FAILURE WITH HYPERCAPNIA (3) CAD (coronary artery disease) Code(s): I25.10 - ATHSCL HEART DISEASE OF [place] CORONARY ARTERY W/O ANG PCTRS Qualifiers: Coronary Disease-Associated Artery/Lesion type: [place] artery [place] vs. transplanted heart: [place] heart Associated angina: without angina Qualified Code(s): I25.10 - Atherosclerotic heart disease of [place] coronary artery without angina pectoris (4) COPD exacerbation Code(s): J44.1 - CHRONIC OBSTRUCTIVE PULMONARY DISEASE W (ACUTE) EXACERBATION (5) Depression Code(s): F32.9 - MAJOR DEPRESSIVE DISORDER, SINGLE EPISODE, UNSPECIFIED (6) Diabetes Code(s): E11.9 - TYPE 2 DIABETES MELLITUS WITHOUT COMPLICATIONS (7) History of ESBL Klebsiella pneumoniae infection Code(s): Z86.19 - PERSONAL HISTORY OF OTHER INFECTIOUS AND PARASITIC DISEASES (8) Hypoxia Code(s): R09.02 - HYPOXEMIA (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 Code(s): Z22.322 - CARRIER OR SUSPECTED CARRIER OF METHICILLIN RESIS STAPH (10) Neurogenic bladder Code(s): N31.9 - NEUROMUSCULAR DYSFUNCTION OF [place], UNSPECIFIED (11) Obstructive sleep apnea Code(s): G47.33 - OBSTRUCTIVE SLEEP APNEA (ADULT) (PEDIATRIC) (12) Restrictive lung disease Code(s): J98.4 - OTHER DISORDERS OF LUNG (13) SOB (shortness of breath) Code(s): R06.02 - SHORTNESS OF BREATH (14) A-fib Code(s): I48.91 - UNSPECIFIED ATRIAL FIBRILLATION Qualifiers: Atrial fibrillation type: chronic Qualified Code(s): I48.2 - Chronic atrial fibrillation (15) Anemia Code(s): D64.9 - ANEMIA, UNSPECIFIED (16) Anxiety Code(s): F41.9 - ANXIETY DISORDER, UNSPECIFIED (17) Coronary arteriosclerosis Code(s): I25.10 - ATHSCL HEART DISEASE OF [place] CORONARY ARTERY W/O ANG PCTRS (18) History of atrial fibrillation Code(s): Z86.79 - PERSONAL HISTORY OF OTHER DISEASES OF THE CIRCULATORY SYSTEM (19) Hypertension Code(s): I10 - ESSENTIAL (PRIMARY) HYPERTENSION (20) Venous stasis dermatitis of both lower extremities Code(s): I83.11 - VARICOSE VEINS OF RIGHT LOWER EXTREMITY WITH INFLAMMATION I83.12 - VARICOSE VEINS OF LEFT LOWER EXTREMITY WITH INFLAMMATION
--- NOTE | 2016-03-21 11:05 | PN ---
Physical Exam: SUBJECTIVE: Patient seen and examined at bed side this morning. Breathing got a little better than yesterday as per the patient. Overnight used BiPap. OBJECTIVE: Vital Signs Period Temp Pulse Resp BP Sys/[place] Pulse Ox Last 24 Hr 97.7 F-98.6 F 76-104 22-22 127-184/76-96 96-98 GENERAL: Patient lying 30 degrees in bed, obese, Awake, in moderate respiratory distress, on nasasl canula @ 3L suprapubic catheter in place draining yellow urine. HEAD: Normal with no signs of trauma. EYES: EOM intact, no pallor or icterus. EARS, NOSE, THROAT: Ears normal NECK: Supple LUNGS: Gurgling sound heard, B/L coarse breath sounds, fine basal crackles, no wheeze HEART: Irregularly irregular, Tachycardic, normal S1 and S2 without murmur, rub or gallop. ABDOMEN: Umbilical hernia, Suprapubic catheter, Soft, nontender,distended +, normoactive bowel sounds, no guarding, no rebound, no masses. Hepatosplenomegaly couldn't be appreciated. MUSCULOSKELETAL: Normal range of motion at all joints. No bony deformities or tenderness. No CVA tenderness. UPPER EXTREMITIES: 2+ pulses, warm, well-perfused. No cyanosis. No clubbing. Cap refill <2 seconds. No peripheral edema. LOWER EXTREMITIES: 2+ pulses, warm, well-perfused. No calf tenderness. No peripheral edema. Decubiti ulcer Stage 1 NEUROLOGICAL: Cranial nerves II-XII intact. Able to complete a sentence today, speech clear. Gait not observed PSYCHIATRIC: Cooperative. Good eye contact. SKIN: Warm, dry, normal turgor, no rashes or lesions noted. Laboratory Results - last 24 hr 03/20/16 03/21/16 16:45 06:28 POC Glucometer 442 325 Active Medications Generic Name Dose Route Start Last Admin Trade Name Freq PRN Reason Stop Dose Admin Acetaminophen 650 mg 03/18/16 19:33 03/18/16 23:10 Tylenol - PO 650 mg Q6H PRN Administration FEVER OR PAIN Acetaminophen 325 mg 03/18/16 20:00 Tylenol - PO Q12H PRN FEVER OR PAIN Albuterol Sulfate 1 amp 03/19/16 11:30 03/21/16 09:55 Ventolin 0.083% Nebulizer Soln - NEB 1 amp Q3H [facility] Administration Amlodipine Besylate 5 mg 03/19/16 10:00 03/20/16 10:18 Norvasc - PO 5 mg DAILY [facility] Administration Clopidogrel Bisulfate 75 mg 03/19/16 10:00 03/20/16 10:18 Plavix - PO 75 mg DAILY [facility] Administration Docusate Sodium 100 mg 03/18/16 22:00 03/20/16 22:05 Colace - PO 100 mg BID [facility] Administration Escitalopram Oxalate 20 mg 03/19/16 10:00 03/20/16 10:19 Lexapro - PO 20 mg DAILY [facility] Administration Furosemide 40 mg 03/19/16 14:00 03/21/16 06:28 Lasix Injection - IVPUSH 40 mg BID@0600,1400 [facility] Administration Gabapentin 300 mg 03/18/16 22:00 03/20/16 22:05 Neurontin - PO 300 mg QID [facility] Administration Heparin Sodium (Porcine) 5,000 unit 03/19/16 22:00 03/20/16 22:06 Heparin - SQ 5,000 unit BID [facility] Administration Ertapenem 1 gm/ Sodium 50 mls @ 50 mls/hr 03/18/16 19:45 03/20/16 10:17 Chloride IVPB 50 mls/hr DAILY [facility] Administration Insulin Aspart 1 vial 03/20/16 07:00 03/21/16 06:29 Novolog Vial Sliding Scale - SQ 8 units TIDAC [facility] Administration Protocol Insulin Detemir 12 units 03/18/16 22:00 03/20/16 22:05 Levemir Vial SQ 12 units HS [facility] Administration Insulin Detemir 20 units 03/19/16 07:00 03/21/16 06:29 Levemir Vial SQ 20 units AM [facility] Administration Methylprednisolone Sodium Succinate 60 mg 03/20/16 14:16 03/21/16 02:50 Solu-Medrol - IVPB 60 mg Q8H-IV [facility] Administration Montelukast Sodium 10 mg 03/19/16 10:00 03/20/16 10:19 Singulair - PO 10 mg DAILY [facility] Administration Oxycodone HCl 10 mg 03/18/16 20:00 Roxicodone - PO Q12H PRN Pantoprazole Sodium 40 mg 03/19/16 10:00 03/20/16 10:18 Protonix - PO 40 mg DAILY [facility] Administration Potassium Chloride 20 meq 03/18/16 22:00 03/20/16 22:05 Kcl Oral Solution - PO 20 meq BID [facility] Administration Solifenacin 5 mg 03/19/16 10:00 03/20/16 10:18 Vesicare - PO 5 mg DAILY [facility] Administration 03/18/2016: Renal USG: Atrophic kidneys, chronic renal disease, No Hydronephrosis. ASSESSMENT/PLAN:ASSESSMENT/PLAN: # Urinary tract infection Brought in for the evaluation of blocked suprapubic catheter- now resolved Urine Blood-3 +, Leukocyte esterase 3+, RBC-1243, WBC-36 Urine culture + Proteus species H/O ESBL and multidrug resistance Since blood culture negative. Patient will never have negative urine culture since patient has a suprapubic catheter. Renal USG report mentioned above. # Respiratory: AE of COPD Respiratory distress, saturation 98% on 4L nasal oxygen On IV Methylprednisolone 60mg IVPB Q8H. CXR showed fluid in horizontal fissure, no infiltrate. Incentive Spirometry Respiratory therapist request On nasal canula now. Used BiPap overnight # Cardiovascular: H/O CHF On Lasix 40mg IV BID, looks like he is fluid overloaded. # Urology: Urinary incontinence Changed suprapubic catheter on 02/01/2016. Strict I/O's # FEN: Not on IV Fluids Electrolytes to be repeated tomorrow Diabetic diet # Prophylaxis: For GI: On Pantoprazole For DVT: On Scds Illness, Investigation and Plan of care explained to the patient. He verbalized understanding. Case seen and discussed with Dr. Castillo. Thank you for the consultative opportunity. Visit type - Emergency Visit Emergency Visit: Yes ED Registration Date: 03/18/16 Care time: The patient presented to the Emergency Department on the above date and was hospitalized for further evaluation of their emergent condition. - New Patient This patient is new to me today: No - Critical Care Critical Care patient: No
[2016-03-21] MEDS ORDERED: PT OWN MED DRAWER 7, Y5N ONE (11:23)
[2016-03-21] MEDS: ESCITALOPRAM OXALATE 20 MG TABLET (FP) PO SCH (11:28)
[2016-03-21] MEDS: MONTELUKAST NA 10 MG TABLET PO SCH (11:28)
[2016-03-21] MEDS: PANTOPRAZOLE 40 MG TABLET (FP) PO SCH (11:28)
[2016-03-21] MEDS: HEPARIN NA (PORCINE) 5,000 UNITS/ML 1ML VIAL SQ SCH ×2 (11:28→21:46)
[2016-03-21] MEDS: amLODIPine BESYLATE 5 MG TABLET (FP) PO SCH (11:28)
[2016-03-21] MEDS: GABAPENTIN 300 MG CAPSULE (FP) PO SCH ×4 (11:28→21:46)
[2016-03-21] MEDS: CLOPIDOGREL BISULFATE 75 MG TABLET (FP) PO SCH (11:28)
[2016-03-21] MEDS: SOLIFENACIN SUCCINATE 5 MG TAB (FP) PO SCH (11:28)
[2016-03-21] MEDS: POTASSIUM CHLORIDE 40 MEQ/30 ML UNIT DOSE CUP PO SCH ×2 (11:28→21:47)
[2016-03-21] MEDS: ERTAPENEM SODIUM 1 GM in SODIUM CHLORIDE 50 ML IVPB SCH (11:28)
[2016-03-21] MEDS: DOCUSATE SODIUM 100 MG CAPSULE (FP) PO SCH ×2 (11:28→21:46)
--- NOTE | 2016-03-21 12:15 | PN ---
Progress Note, Physician Chief Complaint: more awake, on ventimask 50 % He is more calm BIPAP PRN - Current Medication List Current Medications: Active Medications Acetaminophen (Tylenol -) 650 mg PO Q6H PRN PRN Reason: FEVER OR PAIN Last Admin: 03/18/16 23:10 Dose: 650 mg Acetaminophen (Tylenol -) 325 mg PO Q12H PRN PRN Reason: FEVER OR PAIN Albuterol Sulfate (Ventolin 0.083% Nebulizer Soln -) 1 amp NEB Q3H [facility] Last Admin: 03/21/16 11:10 Dose: 1 amp Amlodipine Besylate (Norvasc -) 5 mg PO DAILY [facility] Last Admin: 03/21/16 11:28 Dose: 5 mg Clopidogrel Bisulfate (Plavix -) 75 mg PO DAILY [facility] Last Admin: 03/21/16 11:28 Dose: 75 mg Docusate Sodium (Colace -) 100 mg PO BID [facility] Last Admin: 03/21/16 11:28 Dose: 100 mg Escitalopram Oxalate (Lexapro -) 20 mg PO DAILY [facility] Last Admin: 03/21/16 11:28 Dose: 20 mg Furosemide (Lasix Injection -) 40 mg IVPUSH BID@0600,1400 [facility] Last Admin: 03/21/16 06:28 Dose: 40 mg Gabapentin (Neurontin -) 300 mg PO QID [facility] Last Admin: 03/21/16 11:28 Dose: 300 mg Heparin Sodium (Porcine) (Heparin -) 5,000 unit SQ BID [facility] Last Admin: 03/21/16 11:28 Dose: 5,000 unit Ertapenem 1 gm/ Sodium (Chloride) 50 mls @ 50 mls/hr IVPB DAILY [facility] Last Admin: 03/21/16 11:28 Dose: 50 mls/hr Insulin Aspart (Novolog Vial Sliding Scale -) 1 vial SQ TIDAC [facility] PRN Reason: Protocol Last Admin: 03/21/16 11:57 Dose: 8 units Insulin Detemir (Levemir Vial) 12 units SQ HS [facility] Last Admin: 03/20/16 22:05 Dose: 12 units Insulin Detemir (Levemir Vial) 20 units SQ AM [facility] Last Admin: 03/21/16 06:29 Dose: 20 units Methylprednisolone Sodium Succinate (Solu-Medrol -) 60 mg IVPB Q8H-IV [facility] Last Admin: 03/21/16 11:57 Dose: 60 mg Montelukast Sodium (Singulair -) 10 mg PO DAILY [facility] Last Admin: 03/21/16 11:28 Dose: 10 mg Oxycodone HCl (Roxicodone -) 10 mg PO Q12H PRN Pantoprazole Sodium (Protonix -) 40 mg PO DAILY [facility] Last Admin: 03/21/16 11:28 Dose: 40 mg Potassium Chloride (Kcl Oral Solution -) 20 meq PO BID [facility] Last Admin: 03/21/16 11:28 Dose: 20 meq Solifenacin (Vesicare -) 5 mg PO DAILY [facility] Last Admin: 03/21/16 11:28 Dose: 5 mg - Objective Vital Signs: Vital Signs Temperature 98.6 F 03/21/16 07:48 Pulse Rate 102 H 03/21/16 09:54 Respiratory Rate 22 03/21/16 07:48 Blood Pressure 184/96 03/21/16 07:48 O2 Sat by Pulse Oximetry (%) 98 03/21/16 09:54 Constitutional: Yes: No Distress Cardiovascular: Yes: Regular Rate and Rhythm Respiratory: Yes: Diminished, Rhonchi Gastrointestinal: Yes: Normal Bowel Sounds, Soft, Abdomen, Obese, Other ( ventral hernia). No: Hematemesis, Palpable Mass, Rectal Bleeding, Tenderness, Rebound Edema: No Psychiatric: Yes: Alert, Oriented Labs: CBC, BMP 03/20/16 06:00 03/20/16 06:00 Problem List - Problems (1) Recurrent UTI (urinary tract infection) Code(s): N39.0 - URINARY TRACT INFECTION, SITE NOT SPECIFIED (2) Urinary tract infection Code(s): N39.0 - URINARY TRACT INFECTION, SITE NOT SPECIFIED Qualifiers: Urinary tract infection type: acute cystitis Hematuria presence: with hematuria Qualified Code(s): N30.01 - Acute cystitis with hematuria (3) Acute on chronic respiratory failure with hypoxia and hypercapnia Code(s): J96.21 - ACUTE AND CHRONIC RESPIRATORY FAILURE WITH HYPOXIA J96.22 - ACUTE AND CHRONIC RESPIRATORY FAILURE WITH HYPERCAPNIA (4) Asthma Code(s): J45.909 - UNSPECIFIED ASTHMA, UNCOMPLICATED Qualifiers: Asthma severity: moderate persistent Asthma complication type: with acute exacerbation Qualified Code(s): J45.41 - Moderate persistent asthma with (acute) exacerbation (5) CAD (coronary artery disease) Code(s): I25.10 - ATHSCL HEART DISEASE OF [place] CORONARY ARTERY W/O ANG PCTRS Qualifiers: Coronary Disease-Associated Artery/Lesion type: [place] artery [place] vs. transplanted heart: [place] heart Associated angina: without angina Qualified Code(s): I25.10 - Atherosclerotic heart disease of [place] coronary artery without angina pectoris (6) CHF exacerbation Code(s): I50.9 - HEART FAILURE, UNSPECIFIED Qualifiers: Congestive heart failure type: diastolic Qualified Code(s): I50.33 - Acute on chronic diastolic (congestive) heart failure (7) COPD exacerbation Code(s): J44.1 - CHRONIC OBSTRUCTIVE PULMONARY DISEASE W (ACUTE) EXACERBATION Assessment/Plan PLAN continue with Solumedrol, Lasix may taper slowly spoke with pt about DNR/DNI again today wishes for me to speak to his daughter on O2 antibiotics to be discontinued as blood cultures negatives- spoke with Dr Mays yesterday Nebs, O2 DVT prophylaxis--lovenox prognosis guarded
--- NOTE | 2016-03-21 14:56 | PN ---
Teaching Attending Note Name of Resident: Martha Rivas ATTENDING PHYSICIAN STATEMENT I saw and evaluated the patient. I reviewed the resident's note and discussed the case with the resident. I agree with the resident's findings and plan as documented. SUBJECTIVE:Case reviewed and cultures noted OBJECTIVE: ASSESSMENT AND PLAN: Reviewed with resident Will stop antibiotics as suggested yesterday Jonathan PETIT
[2016-03-21] MEDS ORDERED: INSULIN (NOVOLOG) ASPART 100 UNITS/ML 10ML VIAL ONE (17:52)
[2016-03-22] MEDS: ALBUTEROL SO4 0.083% IH SOL 2.5 MG/3 ML VIAL.NEB. NEB SCH ×6 (02:37→22:00)
[2016-03-22] MEDS: methylPREDNISolone NA SUCC 125 MG/2 ML VIAL IVPB SCH ×2 (03:07→10:54)
[2016-03-22] MEDS: FUROSEMIDE 40 MG/4 ML INJECTABLE VIAL IVPUSH SCH ×2 (05:36→13:04)
[2016-03-22] MEDS: INSULIN DETEMIR 100 UNITS/ML MDV SQ SCH (06:32)
[2016-03-22] MEDS: INSULIN SLIDING SCALE (NOVOLOG) 1 VIAL SQ SCH ×3 (06:32→18:04)
--- NOTE | 2016-03-22 08:00 | PN ---
Progress Note (short form) - Note Progress Note: pt seen/ examined / chart reviewed still sob. denies pain. sugar running high Vital Signs Temp 98.2 F 03/22/16 06:48 Pulse 98 H 03/22/16 06:48 Resp 22 03/22/16 06:48 BP 150/94 03/22/16 06:48 Pulse Ox 98 03/21/16 09:54 Intake & Output 03/21/16 03/21/16 03/22/16 11:59 23:59 11:59 Intake Total 50 540 50 Output Total 350 1600 450 Balance -300 -1060 -400 Weight 204 lb 9.6 oz Intake: IVPB 50 150 50 Oral 390 Output: Urine 350 1600 450 Supra Pubic Tube 350 1600 450 Other: Voiding Method Indwelling Catheter Indwelling Catheter Bowel Movement Yes Yes # Bowel Movements 1 1 Weight Measurement Method Built in [facility] Active Medications Acetaminophen (Tylenol -) 650 mg PO Q6H PRN PRN Reason: FEVER OR PAIN Last Admin: 03/18/16 23:10 Dose: 650 mg Acetaminophen (Tylenol -) 325 mg PO Q12H PRN PRN Reason: FEVER OR PAIN Albuterol Sulfate (Ventolin 0.083% Nebulizer Soln -) 1 amp NEB Q3H [facility] Last Admin: 03/22/16 06:37 Dose: 1 amp Amlodipine Besylate (Norvasc -) 5 mg PO DAILY [facility] Last Admin: 03/21/16 11:28 Dose: 5 mg Clopidogrel Bisulfate (Plavix -) 75 mg PO DAILY [facility] Last Admin: 03/21/16 11:28 Dose: 75 mg Docusate Sodium (Colace -) 100 mg PO BID [facility] Last Admin: 03/21/16 21:46 Dose: 100 mg Escitalopram Oxalate (Lexapro -) 20 mg PO DAILY [facility] Last Admin: 03/21/16 11:28 Dose: 20 mg Furosemide (Lasix Injection -) 40 mg IVPUSH BID@0600,1400 [facility] Last Admin: 03/22/16 05:36 Dose: 40 mg Gabapentin (Neurontin -) 300 mg PO QID [facility] Last Admin: 03/21/16 21:46 Dose: 300 mg Heparin Sodium (Porcine) (Heparin -) 5,000 unit SQ BID [facility] Last Admin: 03/21/16 21:46 Dose: 5,000 unit Insulin Aspart (Novolog Vial Sliding Scale -) 1 vial SQ TIDAC [facility] PRN Reason: Protocol Last Admin: 03/22/16 06:32 Dose: 8 units Insulin Detemir (Levemir Vial) 12 units SQ HS [facility] Last Admin: 03/21/16 21:47 Dose: 12 units Insulin Detemir (Levemir Vial) 20 units SQ AM [facility] Last Admin: 03/22/16 06:32 Dose: 20 units Methylprednisolone Sodium Succinate (Solu-Medrol -) 60 mg IVPB Q8H-IV [facility] Last Admin: 03/22/16 03:07 Dose: 60 mg Montelukast Sodium (Singulair -) 10 mg PO DAILY [facility] Last Admin: 03/21/16 11:28 Dose: 10 mg Pantoprazole Sodium (Protonix -) 40 mg PO DAILY [facility] Last Admin: 03/21/16 11:28 Dose: 40 mg Potassium Chloride (Kcl Oral Solution -) 20 meq PO BID [facility] Last Admin: 03/21/16 21:47 Dose: 20 meq Solifenacin (Vesicare -) 5 mg PO DAILY [facility] Last Admin: 03/21/16 11:28 Dose: 5 mg CBC, BMP 03/20/16 06:00 03/20/16 06:00 Physical Exam Constitutional: Yes: Mild Distress Cardiovascular: Yes: Regular Rate and Rhythm Respiratory: Yes: Diminished, scattered Rhonchi Gastrointestinal: Yes: Normal Bowel Sounds, Soft, Abdomen, Obese, Other ( ventral hernia). No: Hematemesis, Palpable Mass, Rectal Bleeding, Tenderness, Rebound Edema: No Psychiatric: Yes: Alert, Oriented Problem List - Problems (1) Recurrent UTI (urinary tract infection) Code(s): N39.0 - URINARY TRACT INFECTION, SITE NOT SPECIFIED (2) Urinary tract infection Code(s): N39.0 - URINARY TRACT INFECTION, SITE NOT SPECIFIED Qualifiers: Urinary tract infection type: acute cystitis Hematuria presence: with hematuria Qualified Code(s): N30.01 - Acute cystitis with hematuria (3) Acute on chronic respiratory failure with hypoxia and hypercapnia Code(s): J96.21 - ACUTE AND CHRONIC RESPIRATORY FAILURE WITH HYPOXIA J96.22 - ACUTE AND CHRONIC RESPIRATORY FAILURE WITH HYPERCAPNIA (4) Asthma Code(s): J45.909 - UNSPECIFIED ASTHMA, UNCOMPLICATED Qualifiers: Asthma severity: moderate persistent Asthma complication type: with acute exacerbation Qualified Code(s): J45.41 - Moderate persistent asthma with (acute) exacerbation (5) CAD (coronary artery disease) Code(s): I25.10 - ATHSCL HEART DISEASE OF [place] CORONARY ARTERY W/O ANG PCTRS Qualifiers: Coronary Disease-Associated Artery/Lesion type: [place] artery [place] vs. transplanted heart: [place] heart Associated angina: without angina Qualified Code(s): I25.10 - Atherosclerotic heart disease of [place] coronary artery without angina pectoris (6) CHF exacerbation Code(s): I50.9 - HEART FAILURE, UNSPECIFIED Qualifiers: Congestive heart failure type: diastolic Qualified Code(s): I50.33 - Acute on chronic diastolic (congestive) heart failure (7) COPD exacerbation Code(s): J44.1 - CHRONIC OBSTRUCTIVE PULMONARY DISEASE W (ACUTE) EXACERBATION Assessment/Plan Meds reviewed continue present care Continue steroids Sugar high due to steroids Increase insulin Nebs, O2 DVT prophylaxis--lovenox prognosis guarded. Daughter requests suprapubic catheter to be changed- will request urology
[2016-03-22] MEDS ORDERED: INSULIN DETEMIR 100 UNITS/ML MDV SQ SCH (08:02)
[2016-03-22] MEDS ORDERED: PT OWN MED DRAWER 7, Y5N ONE (10:45)
[2016-03-22] MEDS: POTASSIUM CHLORIDE 40 MEQ/30 ML UNIT DOSE CUP PO SCH ×2 (10:54→21:41)
[2016-03-22] MEDS: MONTELUKAST NA 10 MG TABLET PO SCH (10:55)
[2016-03-22] MEDS: GABAPENTIN 300 MG CAPSULE (FP) PO SCH ×4 (10:55→21:41)
[2016-03-22] MEDS: SOLIFENACIN SUCCINATE 5 MG TAB (FP) PO SCH (10:55)
[2016-03-22] MEDS: HEPARIN NA (PORCINE) 5,000 UNITS/ML 1ML VIAL SQ SCH ×2 (10:55→21:41)
[2016-03-22] MEDS: PANTOPRAZOLE 40 MG TABLET (FP) PO SCH (10:55)
[2016-03-22] MEDS: ESCITALOPRAM OXALATE 20 MG TABLET (FP) PO SCH (10:55)
[2016-03-22] MEDS: amLODIPine BESYLATE 5 MG TABLET (FP) PO SCH (10:55)
[2016-03-22] MEDS: CLOPIDOGREL BISULFATE 75 MG TABLET (FP) PO SCH (10:55)
[2016-03-22] MEDS: DOCUSATE SODIUM 100 MG CAPSULE (FP) PO SCH ×2 (10:55→21:41)
--- NOTE | 2016-03-22 16:18 | PN ---
Progress Note (short form) - Note Progress Note: PULMONARY Off BiPAP. +cough but unable to produce sputum. No fevers or chills. Last Vital Signs Temp Pulse Resp BP Pulse Ox 98.2 F 87 22 150/94 97 03/22/16 06:48 03/22/16 11:42 03/22/16 09:00 03/22/16 06:48 03/22/16 11:42 Gen: less tachypneic Heart: RRR Lung: distant breath sounds, scattered rhonchi Abd: soft, nontender Ext: no edema CBC, BMP 03/20/16 06:00 03/20/16 06:00 Active Medications Acetaminophen (Tylenol -) 650 mg PO Q6H PRN PRN Reason: FEVER OR PAIN Last Admin: 03/18/16 23:10 Dose: 650 mg Acetaminophen (Tylenol -) 325 mg PO Q12H PRN PRN Reason: FEVER OR PAIN Albuterol Sulfate (Ventolin 0.083% Nebulizer Soln -) 1 amp NEB Q3H [facility] Last Admin: 03/22/16 14:15 Dose: 1 amp Amlodipine Besylate (Norvasc -) 5 mg PO DAILY [facility] Last Admin: 03/22/16 10:55 Dose: 5 mg Clopidogrel Bisulfate (Plavix -) 75 mg PO DAILY [facility] Last Admin: 03/22/16 10:55 Dose: 75 mg Docusate Sodium (Colace -) 100 mg PO BID [facility] Last Admin: 03/22/16 10:55 Dose: 100 mg Escitalopram Oxalate (Lexapro -) 20 mg PO DAILY [facility] Last Admin: 03/22/16 10:55 Dose: 20 mg Furosemide (Lasix Injection -) 40 mg IVPUSH BID@0600,1400 [facility] Last Admin: 03/22/16 13:04 Dose: 40 mg Gabapentin (Neurontin -) 300 mg PO QID [facility] Last Admin: 03/22/16 13:03 Dose: 300 mg Heparin Sodium (Porcine) (Heparin -) 5,000 unit SQ BID [facility] Last Admin: 03/22/16 10:55 Dose: 5,000 unit Insulin Aspart (Novolog Vial Sliding Scale -) 1 vial SQ TIDAC [facility] PRN Reason: Protocol Last Admin: 03/22/16 13:04 Dose: 6 units Insulin Detemir (Levemir Vial) 20 units SQ AM [facility] Last Admin: 03/22/16 06:32 Dose: 20 units Insulin Detemir (Levemir Vial) 18 units SQ HS [facility] Methylprednisolone Sodium Succinate (Solu-Medrol -) 60 mg IVPB Q8H-IV [facility] Last Admin: 03/22/16 10:54 Dose: 60 mg Montelukast Sodium (Singulair -) 10 mg PO DAILY [facility] Last Admin: 03/22/16 10:55 Dose: 10 mg Pantoprazole Sodium (Protonix -) 40 mg PO DAILY [facility] Last Admin: 03/22/16 10:55 Dose: 40 mg Potassium Chloride (Kcl Oral Solution -) 20 meq PO BID [facility] Last Admin: 03/22/16 10:54 Dose: 20 meq Solifenacin (Vesicare -) 5 mg PO DAILY [facility] Last Admin: 03/22/16 10:55 Dose: 5 mg A/P Acute COPD Exacerbation Chronic Hypoxic Respiratory Failure UTI Suprapubic Catheter CAD Atrial fibrillation DANK - taper FiO2 to keep SpO2 >90% - BiPAP at night and PRN during day - inhaled bronchodilators - chest PT - will decrease steroids to 40mg q8h - completed antibiotics - continue lasix - monitor urine output, creatinine - DVT prophylaxis - discussed at length with pt and daughter at bedside advanced directives, pt unsure what he wants, leaning towards intubation and tracheostomy if needed, will continue discussions
[2016-03-22] MEDS: methylPREDNISolone NA SUCC 40 MG/1 ML VIAL IVPB SCH (17:58)
[2016-03-23] MEDS: ALBUTEROL SO4 0.083% IH SOL 2.5 MG/3 ML VIAL.NEB. NEB SCH ×7 (01:00→21:05)
[2016-03-23] MEDS: methylPREDNISolone NA SUCC 40 MG/1 ML VIAL IVPB SCH ×3 (01:55→17:40)
[2016-03-23] MEDS: FUROSEMIDE 40 MG/4 ML INJECTABLE VIAL IVPUSH SCH ×2 (06:28→14:06)
[2016-03-23] MEDS: INSULIN SLIDING SCALE (NOVOLOG) 1 VIAL SQ SCH ×3 (06:28→16:32)
[2016-03-23] MEDS: INSULIN DETEMIR 100 UNITS/ML MDV SQ SCH ×2 (06:28→22:09)
[2016-03-23 07:39] LABS: BASOPHIL 0.1 % (0-2.0); MCH 27.5 pg (25.7-33.7); MCHC 33.5 g/dl (32.0-35.9); MEAN CELL VOLUME 82.3 fl (80-96); MEAN PLT VOLUME 7.5 fl (7.5-11.1); NEUTROPHILS 92.5 % (42.8-82.8); PLATELET COUNT 218 K/MM3 (134-434); RDW 17.5 % (11.9-15.9); WHITE BLOOD COUNT 9.6 K/mm3 (4.0-10.0)
[2016-03-23 08:12] LABS: ALBUMIN 3.1 g/dl (3.4-5.0); ALK PHOS 94 U/L (45-117); ANION GAP 4 (8-16); BILIRUBIN,TOTAL 0.5 mg/dL (0.2-1.0); CALCIUM 9.4 mg/dL (8.5-10.1); CO2 34 mmol/L (21-32); CREATININE 0.9 mg/dL (0.7-1.3); SGOT/AST 14 U/L (15-37); SGPT/ALT 25 U/L (12-78); TOT PROT 5.8 g/dl (6.4-8.2)
[2016-03-23 08:59] LABS: GLUCOSE,RANDOM 418 mg/dL (74-106)
[2016-03-23] MEDS ORDERED: INSULIN (NOVOLOG) ASPART 100 UNITS/ML 10ML VIAL ONE (09:41)
[2016-03-23] MEDS ORDERED: INSULIN (NOVOLOG) ASPART 100 UNITS/ML 10ML VIAL SQ ONE (09:45)
[2016-03-23] MEDS: DOCUSATE SODIUM 100 MG CAPSULE (FP) PO SCH ×2 (09:46→22:06)
[2016-03-23] MEDS: POTASSIUM CHLORIDE 40 MEQ/30 ML UNIT DOSE CUP PO SCH ×2 (09:46→22:06)
[2016-03-23] MEDS: CLOPIDOGREL BISULFATE 75 MG TABLET (FP) PO SCH (09:47)
[2016-03-23] MEDS: ESCITALOPRAM OXALATE 20 MG TABLET (FP) PO SCH (09:47)
[2016-03-23] MEDS: GABAPENTIN 300 MG CAPSULE (FP) PO SCH ×4 (09:47→22:07)
[2016-03-23] MEDS: amLODIPine BESYLATE 5 MG TABLET (FP) PO SCH (09:47)
[2016-03-23] MEDS: PANTOPRAZOLE 40 MG TABLET (FP) PO SCH (09:47)
[2016-03-23] MEDS: MONTELUKAST NA 10 MG TABLET PO SCH (09:48)
[2016-03-23] MEDS: HEPARIN NA (PORCINE) 5,000 UNITS/ML 1ML VIAL SQ SCH ×2 (09:49→22:07)
[2016-03-23] MEDS: SOLIFENACIN SUCCINATE 5 MG TAB (FP) PO SCH (09:51)
--- NOTE | 2016-03-23 12:20 | PN ---
Progress Note (short form) - Note Progress Note: PULMONARY Back on BiPAP after choking on a banana. Was on nasal cannula overnight. +cough but unable to produce sputum. No fevers or chills. Last Vital Signs Temp Pulse Resp BP Pulse Ox 97.6 F 113 H 26 H 154/98 96 03/23/16 08:40 03/23/16 08:40 03/23/16 08:40 03/23/16 08:40 03/23/16 09:00 Gen: less tachypneic Heart: RRR Lung: distant breath sounds, scattered rhonchi Abd: soft, nontender Ext: no edema CBC, BMP 03/23/16 06:00 03/23/16 06:00 Active Medications Acetaminophen (Tylenol -) 650 mg PO Q6H PRN PRN Reason: FEVER OR PAIN Last Admin: 03/18/16 23:10 Dose: 650 mg Acetaminophen (Tylenol -) 325 mg PO Q12H PRN PRN Reason: FEVER OR PAIN Albuterol Sulfate (Ventolin 0.083% Nebulizer Soln -) 1 amp NEB Q3H [facility] Last Admin: 03/23/16 06:00 Dose: 1 amp Amlodipine Besylate (Norvasc -) 5 mg PO DAILY [facility] Last Admin: 03/23/16 09:47 Dose: 5 mg Clopidogrel Bisulfate (Plavix -) 75 mg PO DAILY [facility] Last Admin: 03/23/16 09:47 Dose: 75 mg Docusate Sodium (Colace -) 100 mg PO BID [facility] Last Admin: 03/23/16 09:46 Dose: 100 mg Escitalopram Oxalate (Lexapro -) 20 mg PO DAILY [facility] Last Admin: 03/23/16 09:47 Dose: 20 mg Furosemide (Lasix Injection -) 40 mg IVPUSH BID@0600,1400 [facility] Last Admin: 03/23/16 06:28 Dose: 40 mg Gabapentin (Neurontin -) 300 mg PO QID [facility] Last Admin: 03/23/16 09:47 Dose: 300 mg Heparin Sodium (Porcine) (Heparin -) 5,000 unit SQ BID [facility] Last Admin: 03/23/16 09:49 Dose: 5,000 unit Insulin Aspart (Novolog Vial Sliding Scale -) 1 vial SQ TIDAC [facility] PRN Reason: Protocol Last Admin: 03/23/16 11:27 Dose: 4 units Insulin Detemir (Levemir Vial) 20 units SQ AM [facility] Last Admin: 03/23/16 06:28 Dose: 20 units Insulin Detemir (Levemir Vial) 18 units SQ HS [facility] Last Admin: 03/22/16 21:41 Dose: 18 units Methylprednisolone Sodium Succinate (Solu-Medrol -) 40 mg IVPB Q8H-IV [facility] Last Admin: 03/23/16 09:48 Dose: 40 mg Montelukast Sodium (Singulair -) 10 mg PO DAILY [facility] Last Admin: 03/23/16 09:48 Dose: 10 mg Pantoprazole Sodium (Protonix -) 40 mg PO DAILY [facility] Last Admin: 03/23/16 09:47 Dose: 40 mg Potassium Chloride (Kcl Oral Solution -) 20 meq PO BID [facility] Last Admin: 03/23/16 09:46 Dose: 20 meq Solifenacin (Vesicare -) 5 mg PO DAILY [facility] Last Admin: 03/23/16 09:51 Dose: 5 mg A/P Acute COPD Exacerbation Chronic Hypoxic Respiratory Failure UTI Suprapubic Catheter CAD Atrial fibrillation DANK - BiPAP at night and PRN during day - can place back on nasal cannula - inhaled bronchodilators - chest PT - continue medrol at current dose - taper in AM if continues to improve - completed antibiotics - continue lasix - monitor urine output, creatinine - DVT prophylaxis
--- NOTE | 2016-03-23 12:40 | PN ---
Progress Note, Physician Chief Complaint: more awake, on NC He is more calm BIPAP PRN - Current Medication List Current Medications: Active Medications Acetaminophen (Tylenol -) 650 mg PO Q6H PRN PRN Reason: FEVER OR PAIN Last Admin: 03/18/16 23:10 Dose: 650 mg Acetaminophen (Tylenol -) 325 mg PO Q12H PRN PRN Reason: FEVER OR PAIN Albuterol Sulfate (Ventolin 0.083% Nebulizer Soln -) 1 amp NEB Q3H [facility] Last Admin: 03/23/16 06:00 Dose: 1 amp Amlodipine Besylate (Norvasc -) 5 mg PO DAILY [facility] Last Admin: 03/23/16 09:47 Dose: 5 mg Clopidogrel Bisulfate (Plavix -) 75 mg PO DAILY [facility] Last Admin: 03/23/16 09:47 Dose: 75 mg Docusate Sodium (Colace -) 100 mg PO BID [facility] Last Admin: 03/23/16 09:46 Dose: 100 mg Escitalopram Oxalate (Lexapro -) 20 mg PO DAILY [facility] Last Admin: 03/23/16 09:47 Dose: 20 mg Furosemide (Lasix Injection -) 40 mg IVPUSH BID@0600,1400 [facility] Last Admin: 03/23/16 06:28 Dose: 40 mg Gabapentin (Neurontin -) 300 mg PO QID [facility] Last Admin: 03/23/16 09:47 Dose: 300 mg Heparin Sodium (Porcine) (Heparin -) 5,000 unit SQ BID [facility] Last Admin: 03/23/16 09:49 Dose: 5,000 unit Insulin Aspart (Novolog Vial Sliding Scale -) 1 vial SQ TIDAC [facility] PRN Reason: Protocol Last Admin: 03/23/16 11:27 Dose: 4 units Insulin Detemir (Levemir Vial) 20 units SQ AM [facility] Last Admin: 03/23/16 06:28 Dose: 20 units Insulin Detemir (Levemir Vial) 18 units SQ HS [facility] Last Admin: 03/22/16 21:41 Dose: 18 units Methylprednisolone Sodium Succinate (Solu-Medrol -) 40 mg IVPB Q8H-IV [facility] Last Admin: 03/23/16 09:48 Dose: 40 mg Montelukast Sodium (Singulair -) 10 mg PO DAILY [facility] Last Admin: 03/23/16 09:48 Dose: 10 mg Pantoprazole Sodium (Protonix -) 40 mg PO DAILY [facility] Last Admin: 03/23/16 09:47 Dose: 40 mg Potassium Chloride (Kcl Oral Solution -) 20 meq PO BID [facility] Last Admin: 03/23/16 09:46 Dose: 20 meq Solifenacin (Vesicare -) 5 mg PO DAILY [facility] Last Admin: 03/23/16 09:51 Dose: 5 mg - Objective Vital Signs: Vital Signs Temperature 97.6 F 03/23/16 08:40 Pulse Rate 113 H 03/23/16 08:40 Respiratory Rate 26 H 03/23/16 08:40 Blood Pressure 154/98 03/23/16 08:40 O2 Sat by Pulse Oximetry (%) 96 03/23/16 09:00 Constitutional: Yes: No Distress, Calm Cardiovascular: Yes: Regular Rate and Rhythm Respiratory: Yes: Diminished, Rhonchi Gastrointestinal: Yes: Normal Bowel Sounds, Soft, Abdomen, Obese. No: Distention, Tenderness Edema: No Psychiatric: Yes: Alert, Oriented Labs: CBC, BMP 03/23/16 06:00 03/23/16 06:00 Problem List - Problems (1) Recurrent UTI (urinary tract infection) Code(s): N39.0 - URINARY TRACT INFECTION, SITE NOT SPECIFIED (2) Urinary tract infection Code(s): N39.0 - URINARY TRACT INFECTION, SITE NOT SPECIFIED Qualifiers: Urinary tract infection type: acute cystitis Hematuria presence: with hematuria Qualified Code(s): N30.01 - Acute cystitis with hematuria (3) Acute on chronic respiratory failure with hypoxia and hypercapnia Code(s): J96.21 - ACUTE AND CHRONIC RESPIRATORY FAILURE WITH HYPOXIA J96.22 - ACUTE AND CHRONIC RESPIRATORY FAILURE WITH HYPERCAPNIA (4) Asthma Code(s): J45.909 - UNSPECIFIED ASTHMA, UNCOMPLICATED Qualifiers: Asthma severity: moderate persistent Asthma complication type: with acute exacerbation Qualified Code(s): J45.41 - Moderate persistent asthma with (acute) exacerbation (5) CAD (coronary artery disease) Code(s): I25.10 - ATHSCL HEART DISEASE OF [place] CORONARY ARTERY W/O ANG PCTRS Qualifiers: Coronary Disease-Associated Artery/Lesion type: [place] artery [place] vs. transplanted heart: [place] heart Associated angina: without angina Qualified Code(s): I25.10 - Atherosclerotic heart disease of [place] coronary artery without angina pectoris (6) CHF exacerbation Code(s): I50.9 - HEART FAILURE, UNSPECIFIED Qualifiers: Congestive heart failure type: diastolic Qualified Code(s): I50.33 - Acute on chronic diastolic (congestive) heart failure (7) COPD exacerbation Code(s): J44.1 - CHRONIC OBSTRUCTIVE PULMONARY DISEASE W (ACUTE) EXACERBATION Assessment/Plan PLAN continue with Solumedrol, Lasix may taper slowly on O2 antibiotics -- discontinued Nebs, O2 DVT prophylaxis--lovenox prognosis guarded
[2016-03-24] MEDS: methylPREDNISolone NA SUCC 40 MG/1 ML VIAL IVPB SCH ×3 (01:42→22:12)
[2016-03-24] MEDS: ALBUTEROL SO4 0.083% IH SOL 2.5 MG/3 ML VIAL.NEB. NEB SCH ×7 (02:52→22:00)
[2016-03-24] MEDS: FUROSEMIDE 40 MG/4 ML INJECTABLE VIAL IVPUSH SCH ×2 (06:20→13:45)
[2016-03-24] MEDS: INSULIN DETEMIR 100 UNITS/ML MDV SQ SCH ×2 (06:23→22:12)
[2016-03-24] MEDS: INSULIN SLIDING SCALE (NOVOLOG) 1 VIAL SQ SCH ×3 (06:25→16:29)
[2016-03-24] MEDS ORDERED: PT OWN MED DRAWER 7, Y5N ONE (09:42)
[2016-03-24] MEDS: DOCUSATE SODIUM 100 MG CAPSULE (FP) PO SCH ×2 (09:45→22:10)
[2016-03-24] MEDS: amLODIPine BESYLATE 5 MG TABLET (FP) PO SCH (09:46)
[2016-03-24] MEDS: GABAPENTIN 300 MG CAPSULE (FP) PO SCH ×4 (09:46→22:11)
[2016-03-24] MEDS: ESCITALOPRAM OXALATE 20 MG TABLET (FP) PO SCH (09:46)
[2016-03-24] MEDS: POTASSIUM CHLORIDE 40 MEQ/30 ML UNIT DOSE CUP PO SCH ×2 (09:46→22:10)
[2016-03-24] MEDS: SOLIFENACIN SUCCINATE 5 MG TAB (FP) PO SCH (09:47)
[2016-03-24] MEDS: MONTELUKAST NA 10 MG TABLET PO SCH (09:47)
[2016-03-24] MEDS: PANTOPRAZOLE 40 MG TABLET (FP) PO SCH (09:47)
[2016-03-24] MEDS: CLOPIDOGREL BISULFATE 75 MG TABLET (FP) PO SCH (09:47)
[2016-03-24] MEDS: HEPARIN NA (PORCINE) 5,000 UNITS/ML 1ML VIAL SQ SCH ×2 (09:48→22:12)
--- NOTE | 2016-03-24 12:56 | PN ---
Progress Note (short form) - Note Progress Note: PULMONARY States breathing is better. +cough but unable to produce sputum. No fevers or chills. Last Vital Signs Temp Pulse Resp BP Pulse Ox 98 F 113 H 26 H 153/92 93 L 03/24/16 08:45 03/24/16 10:05 03/24/16 08:45 03/24/16 08:45 03/24/16 10:05 Gen: less tachypneic Heart: RRR Lung: distant breath sounds, scattered rhonchi Abd: soft, nontender Ext: no edema CBC, BMP 03/23/16 06:00 03/23/16 06:00 Active Medications Acetaminophen (Tylenol -) 650 mg PO Q6H PRN PRN Reason: FEVER OR PAIN Last Admin: 03/18/16 23:10 Dose: 650 mg Acetaminophen (Tylenol -) 325 mg PO Q12H PRN PRN Reason: FEVER OR PAIN Albuterol Sulfate (Ventolin 0.083% Nebulizer Soln -) 1 amp NEB Q3H [facility] Last Admin: 03/24/16 10:05 Dose: 1 amp Amlodipine Besylate (Norvasc -) 5 mg PO DAILY [facility] Last Admin: 03/24/16 09:46 Dose: 5 mg Clopidogrel Bisulfate (Plavix -) 75 mg PO DAILY [facility] Last Admin: 03/24/16 09:47 Dose: 75 mg Docusate Sodium (Colace -) 100 mg PO BID [facility] Last Admin: 03/24/16 09:45 Dose: 100 mg Escitalopram Oxalate (Lexapro -) 20 mg PO DAILY [facility] Last Admin: 03/24/16 09:46 Dose: 20 mg Furosemide (Lasix Injection -) 40 mg IVPUSH BID@0600,1400 [facility] Last Admin: 03/24/16 06:20 Dose: 40 mg Gabapentin (Neurontin -) 300 mg PO QID [facility] Last Admin: 03/24/16 09:46 Dose: 300 mg Heparin Sodium (Porcine) (Heparin -) 5,000 unit SQ BID [facility] Last Admin: 03/24/16 09:48 Dose: 5,000 unit Insulin Aspart (Novolog Vial Sliding Scale -) 1 vial SQ TIDAC [facility] PRN Reason: Protocol Last Admin: 03/24/16 11:23 Dose: 6 units Insulin Detemir (Levemir Vial) 24 units SQ AM [facility] Last Admin: 03/24/16 06:23 Dose: 24 units Insulin Detemir (Levemir Vial) 20 units SQ HS [facility] Last Admin: 03/23/16 22:09 Dose: 20 units Methylprednisolone Sodium Succinate (Solu-Medrol -) 40 mg IVPB Q8H-IV [facility] Last Admin: 03/24/16 09:47 Dose: 40 mg Montelukast Sodium (Singulair -) 10 mg PO DAILY [facility] Last Admin: 03/24/16 09:47 Dose: 10 mg Pantoprazole Sodium (Protonix -) 40 mg PO DAILY [facility] Last Admin: 03/24/16 09:47 Dose: 40 mg Potassium Chloride (Kcl Oral Solution -) 20 meq PO BID [facility] Last Admin: 03/24/16 09:46 Dose: 20 meq Solifenacin (Vesicare -) 5 mg PO DAILY [facility] Last Admin: 03/24/16 09:47 Dose: 5 mg A/P Acute COPD Exacerbation Chronic Hypoxic Respiratory Failure UTI Suprapubic Catheter CAD Atrial fibrillation DANK - BiPAP at night and PRN during day - continue nasal cannula - inhaled bronchodilators - chest PT - will taper medrol to q12h - completed antibiotics - continue lasix - monitor urine output, creatinine - DVT prophylaxis
--- NOTE | 2016-03-24 17:13 | PN ---
Progress Note, Physician Chief Complaint: more awake, on NC no distress On BIPAP at night - Current Medication List Current Medications: Active Medications Acetaminophen (Tylenol -) 650 mg PO Q6H PRN PRN Reason: FEVER OR PAIN Last Admin: 03/18/16 23:10 Dose: 650 mg Acetaminophen (Tylenol -) 325 mg PO Q12H PRN PRN Reason: FEVER OR PAIN Albuterol Sulfate (Ventolin 0.083% Nebulizer Soln -) 1 amp NEB Q3H [facility] Last Admin: 03/24/16 13:54 Dose: 1 amp Amlodipine Besylate (Norvasc -) 5 mg PO DAILY [facility] Last Admin: 03/24/16 09:46 Dose: 5 mg Clopidogrel Bisulfate (Plavix -) 75 mg PO DAILY [facility] Last Admin: 03/24/16 09:47 Dose: 75 mg Docusate Sodium (Colace -) 100 mg PO BID [facility] Last Admin: 03/24/16 09:45 Dose: 100 mg Escitalopram Oxalate (Lexapro -) 20 mg PO DAILY [facility] Last Admin: 03/24/16 09:46 Dose: 20 mg Furosemide (Lasix Injection -) 40 mg IVPUSH BID@0600,1400 [facility] Last Admin: 03/24/16 13:45 Dose: 40 mg Gabapentin (Neurontin -) 300 mg PO QID [facility] Last Admin: 03/24/16 13:44 Dose: 300 mg Heparin Sodium (Porcine) (Heparin -) 5,000 unit SQ BID [facility] Last Admin: 03/24/16 09:48 Dose: 5,000 unit Insulin Aspart (Novolog Vial Sliding Scale -) 1 vial SQ TIDAC [facility] PRN Reason: Protocol Last Admin: 03/24/16 16:29 Dose: 10 units Insulin Detemir (Levemir Vial) 24 units SQ AM [facility] Last Admin: 03/24/16 06:23 Dose: 24 units Insulin Detemir (Levemir Vial) 20 units SQ HS [facility] Last Admin: 03/23/16 22:09 Dose: 20 units Methylprednisolone Sodium Succinate (Solu-Medrol -) 40 mg IVPB BID [facility] Montelukast Sodium (Singulair -) 10 mg PO DAILY [facility] Last Admin: 03/24/16 09:47 Dose: 10 mg Pantoprazole Sodium (Protonix -) 40 mg PO DAILY [facility] Last Admin: 01/08/17 09:47 Dose: 40 mg Potassium Chloride (Kcl Oral Solution -) 20 meq PO BID [facility] Last Admin: 03/24/16 09:46 Dose: 20 meq Solifenacin (Vesicare -) 5 mg PO DAILY [facility] Last Admin: 03/24/16 09:47 Dose: 5 mg - Objective Vital Signs: Vital Signs Temperature 97.8 F 03/24/16 14:29 Pulse Rate 107 H 03/24/16 14:29 Respiratory Rate 20 03/24/16 14:29 Blood Pressure 153/92 03/24/16 08:45 O2 Sat by Pulse Oximetry (%) 93 L 03/24/16 10:05 Constitutional: Yes: No Distress Cardiovascular: Yes: Regular Rate and Rhythm Respiratory: Yes: Diminished, Rhonchi Gastrointestinal: Yes: Normal Bowel Sounds, Soft, Abdomen, Obese. No: Tenderness Edema: No Labs: CBC, BMP 03/23/16 06:00 03/23/16 06:00 Problem List - Problems (1) Recurrent UTI (urinary tract infection) Code(s): N39.0 - URINARY TRACT INFECTION, SITE NOT SPECIFIED (2) Urinary tract infection Code(s): N39.0 - URINARY TRACT INFECTION, SITE NOT SPECIFIED Qualifiers: Urinary tract infection type: acute cystitis Hematuria presence: with hematuria Qualified Code(s): N30.01 - Acute cystitis with hematuria (3) Acute on chronic respiratory failure with hypoxia and hypercapnia Code(s): J96.21 - ACUTE AND CHRONIC RESPIRATORY FAILURE WITH HYPOXIA J96.22 - ACUTE AND CHRONIC RESPIRATORY FAILURE WITH HYPERCAPNIA (4) Asthma Code(s): J45.909 - UNSPECIFIED ASTHMA, UNCOMPLICATED Qualifiers: Asthma severity: moderate persistent Asthma complication type: with acute exacerbation Qualified Code(s): J45.41 - Moderate persistent asthma with (acute) exacerbation (5) CAD (coronary artery disease) Code(s): I25.10 - ATHSCL HEART DISEASE OF [place] CORONARY ARTERY W/O ANG PCTRS Qualifiers: Coronary Disease-Associated Artery/Lesion type: [place] artery [place] vs. transplanted heart: [place] heart Associated angina: without angina Qualified Code(s): I25.10 - Atherosclerotic heart disease of [place] coronary artery without angina pectoris (6) CHF exacerbation Code(s): I50.9 - HEART FAILURE, UNSPECIFIED Qualifiers: Congestive heart failure type: diastolic Qualified Code(s): I50.33 - Acute on chronic diastolic (congestive) heart failure (7) COPD exacerbation Code(s): J44.1 - CHRONIC OBSTRUCTIVE PULMONARY DISEASE W (ACUTE) EXACERBATION Assessment/Plan PLAN continue with Solumedrol, Lasix may taper slowly blood culture positive-- will call for ID follow up ?contaminant on O2 antibiotics -- discontinued Nebs, O2 DVT prophylaxis--lovenox prognosis guarded
[2016-03-24] MEDS: ACETAMINOPHEN 325 MG TABLET (FP) PO PRN (22:23)
[2016-03-25] MEDS: ALBUTEROL SO4 0.083% IH SOL 2.5 MG/3 ML VIAL.NEB. NEB SCH ×7 (01:00→22:30)
[2016-03-25] MEDS: FUROSEMIDE 40 MG/4 ML INJECTABLE VIAL IVPUSH SCH ×2 (06:18→14:44)
[2016-03-25] MEDS: INSULIN DETEMIR 100 UNITS/ML MDV SQ SCH ×2 (06:19→21:45)
[2016-03-25] MEDS: INSULIN SLIDING SCALE (NOVOLOG) 1 VIAL SQ SCH ×3 (06:26→18:06)
[2016-03-25] MEDS ORDERED: INSULIN DETEMIR 100 UNITS/ML MDV SQ ONE (07:15)
[2016-03-25 08:00] LABS: BASOPHIL 0.2 % (0-2.0); MCHC 32.9 g/dl (32.0-35.9); MEAN CELL VOLUME 82.2 fl (80-96); MEAN PLT VOLUME 7.6 fl (7.5-11.1); NEUTROPHILS 89.9 % (42.8-82.8); PLATELET COUNT 224 K/MM3 (134-434); WHITE BLOOD COUNT 11.6 K/mm3 (4.0-10.0)
[2016-03-25 08:35] LABS: ALBUMIN 3.2 g/dl (3.4-5.0); ALK PHOS 99 U/L (45-117); ANION GAP 11 (8-16); BILIRUBIN,TOTAL 0.7 mg/dL (0.2-1.0); CALCIUM 9.9 mg/dL (8.5-10.1); CO2 37 mmol/L (21-32); CREATININE 0.8 mg/dL (0.7-1.3); GLUCOSE,RANDOM 299 mg/dL (74-106); SGOT/AST 16 U/L (15-37); SGPT/ALT 23 U/L (12-78)
--- NOTE | 2016-03-25 08:38 | PN ---
Progress Note (short form) - Note Progress Note: Subjective Patient seen and examined. Chart reviewed. Still mild SOB. Objective Last Vital Signs Temp Pulse Resp BP Pulse Ox 97.5 F L 112 H 22 147/91 93 L 03/25/16 07:24 03/25/16 07:24 03/25/16 07:24 03/25/16 07:24 03/24/16 10:05 Physical Exam Constitutional: Yes: No Distress Cardiovascular: Yes: Regular Rate and Rhythm Respiratory: Yes: Diminished, Rhonchi Gastrointestinal: Yes: Normal Bowel Sounds, Soft, Abdomen, Obese. No: Tenderness Edema: No Labs: CBC, BMP 03/25/16 06:00 03/25/16 06:00 Problem List - Problems (1) Recurrent UTI (urinary tract infection) Code(s): N39.0 - URINARY TRACT INFECTION, SITE NOT SPECIFIED (2) Urinary tract infection Code(s): N39.0 - URINARY TRACT INFECTION, SITE NOT SPECIFIED Qualifiers: Urinary tract infection type: acute cystitis Hematuria presence: with hematuria Qualified Code(s): N30.01 - Acute cystitis with hematuria (3) Acute on chronic respiratory failure with hypoxia and hypercapnia Code(s): J96.21 - ACUTE AND CHRONIC RESPIRATORY FAILURE WITH HYPOXIA J96.22 - ACUTE AND CHRONIC RESPIRATORY FAILURE WITH HYPERCAPNIA (4) Asthma Code(s): J45.909 - UNSPECIFIED ASTHMA, UNCOMPLICATED Qualifiers: Asthma severity: moderate persistent Asthma complication type: with acute exacerbation Qualified Code(s): J45.41 - Moderate persistent asthma with (acute) exacerbation (5) CAD (coronary artery disease) Code(s): I25.10 - ATHSCL HEART DISEASE OF [place] CORONARY ARTERY W/O ANG PCTRS Qualifiers: Coronary Disease-Associated Artery/Lesion type: [place] artery [place] vs. transplanted heart: [place] heart Associated angina: without angina Qualified Code(s): I25.10 - Atherosclerotic heart disease of [place] coronary artery without angina pectoris (6) CHF exacerbation Code(s): I50.9 - HEART FAILURE, UNSPECIFIED Qualifiers: Congestive heart failure type: diastolic Qualified Code(s): I50.33 - Acute on chronic diastolic (congestive) heart failure (7) COPD exacerbation Code(s): J44.1 - CHRONIC OBSTRUCTIVE PULMONARY DISEASE W (ACUTE) EXACERBATION Assessment and Plan Overall condition remain same. Continue steroids, taper slowly. Positive blood cultures are contiminant. No further abx. Urology to follow. For change of suprapubic catheter. Prognosis remains guarded. Monitor blood sugar. Documentation prepared by Carmen Villalobos, acting as a medical hospital sales for Demetrius Bradley MD.
--- NOTE | 2016-03-25 10:06 | PN ---
Progress Note (short form) - Note Progress Note: PULMONARY More short of breath today. +cough. No fevers or chills. Last Vital Signs Temp Pulse Resp BP Pulse Ox 97.5 F L 112 H 22 147/91 93 L 03/25/16 07:24 03/25/16 07:24 03/25/16 07:24 03/25/16 07:24 03/24/16 10:05 Gen: more tachypneic Heart: RRR Lung: distant breath sounds, bilateral rhonchi Abd: soft, nontender Ext: no edema CBC, BMP 03/25/16 06:00 03/25/16 06:00 Active Medications Acetaminophen (Tylenol -) 650 mg PO Q6H PRN PRN Reason: FEVER OR PAIN Last Admin: 03/24/16 22:23 Dose: 650 mg Acetaminophen (Tylenol -) 325 mg PO Q12H PRN PRN Reason: FEVER OR PAIN Albuterol Sulfate (Ventolin 0.083% Nebulizer Soln -) 1 amp NEB Q3H [facility] Last Admin: 03/25/16 06:26 Dose: 1 amp Amlodipine Besylate (Norvasc -) 5 mg PO DAILY [facility] Last Admin: 03/24/16 09:46 Dose: 5 mg Clopidogrel Bisulfate (Plavix -) 75 mg PO DAILY [facility] Last Admin: 03/24/16 09:47 Dose: 75 mg Docusate Sodium (Colace -) 100 mg PO BID [facility] Last Admin: 03/24/16 22:10 Dose: 100 mg Escitalopram Oxalate (Lexapro -) 20 mg PO DAILY [facility] Last Admin: 03/24/16 09:46 Dose: 20 mg Furosemide (Lasix Injection -) 40 mg IVPUSH BID@0600,1400 [facility] Last Admin: 03/25/16 06:18 Dose: 40 mg Gabapentin (Neurontin -) 300 mg PO QID [facility] Last Admin: 03/24/16 22:11 Dose: 300 mg Heparin Sodium (Porcine) (Heparin -) 5,000 unit SQ BID [facility] Last Admin: 03/24/16 22:12 Dose: 5,000 unit Insulin Aspart (Novolog Vial Sliding Scale -) 1 vial SQ TIDAC [facility] PRN Reason: Protocol Last Admin: 03/25/16 06:26 Dose: 6 units Insulin Detemir (Levemir Vial) 24 units SQ AM [facility] Last Admin: 03/25/16 06:19 Dose: 24 units Insulin Detemir (Levemir Vial) 20 units SQ HS [facility] Last Admin: 03/24/16 22:12 Dose: 20 units Methylprednisolone Sodium Succinate (Solu-Medrol -) 40 mg IVPB BID [facility] Last Admin: 03/24/16 22:12 Dose: 40 mg Montelukast Sodium (Singulair -) 10 mg PO DAILY [facility] Last Admin: 03/24/16 09:47 Dose: 10 mg Pantoprazole Sodium (Protonix -) 40 mg PO DAILY [facility] Last Admin: 03/24/16 09:47 Dose: 40 mg Potassium Chloride (Kcl Oral Solution -) 20 meq PO BID [facility] Last Admin: 03/24/16 22:10 Dose: 20 meq Solifenacin (Vesicare -) 5 mg PO DAILY [facility] Last Admin: 03/24/16 09:47 Dose: 5 mg A/P Acute COPD Exacerbation Chronic Hypoxic Respiratory Failure UTI Suprapubic Catheter CAD Atrial fibrillation DANK - place back on BiPAP - inhaled bronchodilators - repeat CXR - if CXR unchanged, will increase steroids as they were just tapered yesterday - chest PT - completed antibiotics - continue lasix - monitor urine output, creatinine - DVT prophylaxis
[2016-03-25] MEDS: amLODIPine BESYLATE 5 MG TABLET (FP) PO SCH (11:02)
[2016-03-25] MEDS: PANTOPRAZOLE 40 MG TABLET (FP) PO SCH (11:02)
[2016-03-25] MEDS: POTASSIUM CHLORIDE 40 MEQ/30 ML UNIT DOSE CUP PO SCH ×2 (11:02→21:38)
[2016-03-25] MEDS: GABAPENTIN 300 MG CAPSULE (FP) PO SCH ×4 (11:02→21:37)
[2016-03-25] MEDS: ESCITALOPRAM OXALATE 20 MG TABLET (FP) PO SCH (11:03)
[2016-03-25] MEDS: methylPREDNISolone NA SUCC 40 MG/1 ML VIAL IVPB SCH ×2 (11:03→21:41)
[2016-03-25] MEDS: MONTELUKAST NA 10 MG TABLET PO SCH (11:03)
[2016-03-25] MEDS: CLOPIDOGREL BISULFATE 75 MG TABLET (FP) PO SCH (11:03)
[2016-03-25] MEDS: SOLIFENACIN SUCCINATE 5 MG TAB (FP) PO SCH (11:03)
[2016-03-25] MEDS: HEPARIN NA (PORCINE) 5,000 UNITS/ML 1ML VIAL SQ SCH ×2 (11:03→21:40)
[2016-03-25] MEDS: DOCUSATE SODIUM 100 MG CAPSULE (FP) PO SCH ×2 (11:03→21:37)
--- NOTE | 2016-03-25 14:58 | PN ---
Progress Note (short form) - Note Progress Note: asked to see for positive blood culture penile lesion NAD lying flat alert Vital Signs Period Temp Pulse Resp BP Sys/[place] Pulse Ox Last 24 Hr 97.4 F-98.6 F 109-116 22-26 130-156/70-91 97-98 cor-rrr lungs decreased bs at bases abd umbilical hernia SPT penile lesions noted- firm, not vesicular ext no edema CBC, BMP 03/25/16 06:00 03/25/16 06:00 Microbiology 03/18/16 19:50 Blood - Peripheral Venous Blood Culture - Final Propionibacterium Acnes 03/18/16 20:00 Blood - Peripheral Venous Blood Culture - Final NO GROWTH AFTER 5 DAYS INCUBATION 03/18/16 15:49 Urine - Urine - Catheterized Urine Culture - Final Proteus Mirabilis Current Medications Acetaminophen (Tylenol -) 650 mg PO Q6H PRN PRN Reason: FEVER OR PAIN Last Admin: 03/24/16 22:23 Dose: 650 mg Acetaminophen (Tylenol -) 325 mg PO Q12H PRN PRN Reason: FEVER OR PAIN Albuterol Sulfate (Ventolin 0.083% Nebulizer Soln -) 1 amp NEB Q3H [facility] Last Admin: 03/25/16 13:53 Dose: 1 amp Amlodipine Besylate (Norvasc -) 5 mg PO DAILY [facility] Last Admin: 03/25/16 11:02 Dose: 5 mg Clopidogrel Bisulfate (Plavix -) 75 mg PO DAILY [facility] Last Admin: 03/25/16 11:03 Dose: 75 mg Docusate Sodium (Colace -) 100 mg PO BID [facility] Last Admin: 03/25/16 11:03 Dose: 100 mg Escitalopram Oxalate (Lexapro -) 20 mg PO DAILY [facility] Last Admin: 03/25/16 11:03 Dose: 20 mg Furosemide (Lasix Injection -) 40 mg IVPUSH BID@0600,1400 [facility] Last Admin: 03/25/16 14:44 Dose: 40 mg Gabapentin (Neurontin -) 300 mg PO QID [facility] Last Admin: 03/25/16 14:44 Dose: 300 mg Heparin Sodium (Porcine) (Heparin -) 5,000 unit SQ BID [facility] Last Admin: 03/25/16 11:03 Dose: 5,000 unit Insulin Aspart (Novolog Vial Sliding Scale -) 1 vial SQ TIDAC [facility] PRN Reason: Protocol Last Admin: 03/25/16 11:45 Dose: Not Given Insulin Detemir (Levemir Vial) 24 units SQ AM [facility] Last Admin: 03/25/16 06:19 Dose: 24 units Insulin Detemir (Levemir Vial) 20 units SQ HS [facility] Last Admin: 03/24/16 22:12 Dose: 20 units Methylprednisolone Sodium Succinate (Solu-Medrol -) 40 mg IVPB BID [facility] Last Admin: 03/25/16 11:03 Dose: 40 mg Montelukast Sodium (Singulair -) 10 mg PO DAILY [facility] Last Admin: 03/25/16 11:03 Dose: 10 mg Nystatin (Mycostatin Cream -) 1 applic TP BID [facility] Pantoprazole Sodium (Protonix -) 40 mg PO DAILY [facility] Last Admin: 03/25/16 11:02 Dose: 40 mg Potassium Chloride (Kcl Oral Solution -) 20 meq PO BID [facility] Last Admin: 03/25/16 11:02 Dose: 20 meq Solifenacin (Vesicare -) 5 mg PO DAILY [facility] Last Admin: 03/25/16 11:03 Dose: 5 mg a/p copd exacerbation - improved f/u with urology for penile lesion blood culture one of four bottles Propionobacterium- c/w skin contaminant please call back if needed
--- NOTE | 2016-03-25 15:09 | PROC ---
Procedure Note Procedure: Patient seen with Dr. Gracia for replacement of suprapubic catheter. Previous catheter removed and replaced with 22F catheter. Clear urine output noted upon placement. Patient tolerated procedure well.
[2016-03-25] MEDS: NYSTATIN 100,000 UNIT/GM TOPICAL CREAM 15 GM TUBE TP SCH (21:37)
[2016-03-26] MEDS: ALBUTEROL SO4 0.083% IH SOL 2.5 MG/3 ML VIAL.NEB. NEB SCH ×7 (01:10→22:19)
[2016-03-26] MEDS: FUROSEMIDE 40 MG/4 ML INJECTABLE VIAL IVPUSH SCH ×2 (05:57→14:40)
[2016-03-26] MEDS: INSULIN SLIDING SCALE (NOVOLOG) 1 VIAL SQ SCH ×3 (06:18→17:44)
[2016-03-26] MEDS: INSULIN DETEMIR 100 UNITS/ML MDV SQ SCH ×2 (06:20→21:40)
--- NOTE | 2016-03-26 09:58 | PN ---
Progress Note (short form) - Note Progress Note: PULMONARY Used BiPAP overnight. Breathing slightly better today. +cough and wheezing. No fevers or chills. CXR done yesterday unchanged, without infiltrates or congestion. Last Vital Signs Temp Pulse Resp BP Pulse Ox 97.5 F L 102 H 20 152/99 97 03/26/16 06:51 03/26/16 06:51 03/26/16 06:51 03/26/16 06:51 03/26/16 06:33 Gen: mildly tachypneic at rest Heart: RRR Lung: distant breath sounds, bilateral rhonchi, wheezes Abd: soft, nontender Ext: no edema CBC, BMP 03/25/16 06:00 03/25/16 06:00 Active Medications Acetaminophen (Tylenol -) 650 mg PO Q6H PRN PRN Reason: FEVER OR PAIN Last Admin: 03/24/16 22:23 Dose: 650 mg Acetaminophen (Tylenol -) 325 mg PO Q12H PRN PRN Reason: FEVER OR PAIN Albuterol Sulfate (Ventolin 0.083% Nebulizer Soln -) 1 amp NEB Q3H [facility] Last Admin: 03/26/16 06:34 Dose: 1 amp Amlodipine Besylate (Norvasc -) 5 mg PO DAILY [facility] Last Admin: 03/25/16 11:02 Dose: 5 mg Clopidogrel Bisulfate (Plavix -) 75 mg PO DAILY [facility] Last Admin: 03/25/16 11:03 Dose: 75 mg Docusate Sodium (Colace -) 100 mg PO BID [facility] Last Admin: 03/25/16 21:37 Dose: 100 mg Escitalopram Oxalate (Lexapro -) 20 mg PO DAILY [facility] Last Admin: 03/25/16 11:03 Dose: 20 mg Furosemide (Lasix Injection -) 40 mg IVPUSH BID@0600,1400 [facility] Last Admin: 03/26/16 05:57 Dose: 40 mg Gabapentin (Neurontin -) 300 mg PO QID [facility] Last Admin: 03/25/16 21:37 Dose: 300 mg Heparin Sodium (Porcine) (Heparin -) 5,000 unit SQ BID [facility] Last Admin: 03/25/16 21:40 Dose: 5,000 unit Insulin Aspart (Novolog Vial Sliding Scale -) 1 vial SQ TIDAC [facility] PRN Reason: Protocol Last Admin: 03/26/16 06:18 Dose: 8 units Insulin Detemir (Levemir Vial) 24 units SQ AM [facility] Last Admin: 03/26/16 06:20 Dose: 24 units Insulin Detemir (Levemir Vial) 20 units SQ HS [facility] Last Admin: 03/25/16 21:45 Dose: 20 units Methylprednisolone Sodium Succinate (Solu-Medrol -) 40 mg IVPB BID [facility] Last Admin: 03/25/16 21:41 Dose: 40 mg Montelukast Sodium (Singulair -) 10 mg PO DAILY [facility] Last Admin: 03/25/16 11:03 Dose: 10 mg Nystatin (Mycostatin Cream -) 1 applic TP BID [facility] Last Admin: 03/25/16 21:37 Dose: 1 applic Pantoprazole Sodium (Protonix -) 40 mg PO DAILY [facility] Last Admin: 03/25/16 11:02 Dose: 40 mg Potassium Chloride (Kcl Oral Solution -) 20 meq PO BID [facility] Last Admin: 03/25/16 21:38 Dose: 20 meq Solifenacin (Vesicare -) 5 mg PO DAILY [facility] Last Admin: 03/25/16 11:03 Dose: 5 mg A/P Acute COPD Exacerbation Chronic Hypoxic Respiratory Failure UTI Suprapubic Catheter CAD Atrial fibrillation DANK - BiPAP at night and PRN during day - inhaled bronchodilators - continue medrol at current dose, slow taper - chest PT - completed antibiotics - continue lasix - monitor urine output, creatinine - DVT prophylaxis
[2016-03-26] MEDS ORDERED: PT OWN MED DRAWER 7, Y5N ONE (12:10)
[2016-03-26] MEDS: POTASSIUM CHLORIDE 40 MEQ/30 ML UNIT DOSE CUP PO SCH ×2 (12:17→21:32)
[2016-03-26] MEDS: methylPREDNISolone NA SUCC 40 MG/1 ML VIAL IVPB SCH (12:17)
[2016-03-26] MEDS: PANTOPRAZOLE 40 MG TABLET (FP) PO SCH (12:19)
[2016-03-26] MEDS: SOLIFENACIN SUCCINATE 5 MG TAB (FP) PO SCH (12:19)
[2016-03-26] MEDS: amLODIPine BESYLATE 5 MG TABLET (FP) PO SCH (12:19)
[2016-03-26] MEDS: ESCITALOPRAM OXALATE 20 MG TABLET (FP) PO SCH (12:20)
[2016-03-26] MEDS: CLOPIDOGREL BISULFATE 75 MG TABLET (FP) PO SCH (12:20)
[2016-03-26] MEDS: GABAPENTIN 300 MG CAPSULE (FP) PO SCH ×4 (12:20→21:36)
[2016-03-26] MEDS: MONTELUKAST NA 10 MG TABLET PO SCH (12:20)
[2016-03-26] MEDS: HEPARIN NA (PORCINE) 5,000 UNITS/ML 1ML VIAL SQ SCH ×2 (12:20→21:32)
[2016-03-26] MEDS: DOCUSATE SODIUM 100 MG CAPSULE (FP) PO SCH ×2 (12:20→21:33)
[2016-03-26] MEDS: NYSTATIN 100,000 UNIT/GM TOPICAL CREAM 15 GM TUBE TP SCH ×2 (12:36→21:41)
[2016-03-26] MEDS: ACETAMINOPHEN 325 MG TABLET (FP) PO PRN (12:59)
--- NOTE | 2016-03-26 13:40 | PN ---
Progress Note, Physician Chief Complaint: more awake, on NC no distress On BIPAP at night has gurgling in throat- unable to expectorate - Current Medication List Current Medications: Active Medications Acetaminophen (Tylenol -) 650 mg PO Q6H PRN PRN Reason: FEVER OR PAIN Last Admin: 03/26/16 12:59 Dose: 650 mg Acetaminophen (Tylenol -) 325 mg PO Q12H PRN PRN Reason: FEVER OR PAIN Albuterol Sulfate (Ventolin 0.083% Nebulizer Soln -) 1 amp NEB Q3H [facility] Last Admin: 03/26/16 09:40 Dose: 1 amp Amino Acids (Prostat Sugar-Free Packet -) 30 ml PO BID@0800,1730 [facility] Amlodipine Besylate (Norvasc -) 5 mg PO DAILY [facility] Last Admin: 03/26/16 12:19 Dose: 5 mg Clopidogrel Bisulfate (Plavix -) 75 mg PO DAILY [facility] Last Admin: 03/26/16 12:20 Dose: 75 mg Docusate Sodium (Colace -) 100 mg PO BID [facility] Last Admin: 03/26/16 12:20 Dose: 100 mg Escitalopram Oxalate (Lexapro -) 20 mg PO DAILY [facility] Last Admin: 03/26/16 12:20 Dose: 20 mg Furosemide (Lasix Injection -) 40 mg IVPUSH BID@0600,1400 [facility] Last Admin: 03/26/16 05:57 Dose: 40 mg Gabapentin (Neurontin -) 300 mg PO QID [facility] Last Admin: 03/26/16 12:20 Dose: 300 mg Heparin Sodium (Porcine) (Heparin -) 5,000 unit SQ BID [facility] Last Admin: 03/26/16 12:20 Dose: 5,000 unit Insulin Aspart (Novolog Vial Sliding Scale -) 1 vial SQ TIDAC [facility] PRN Reason: Protocol Last Admin: 03/26/16 12:40 Dose: 4 units Insulin Detemir (Levemir Vial) 24 units SQ AM [facility] Last Admin: 03/26/16 06:20 Dose: 24 units Insulin Detemir (Levemir Vial) 20 units SQ HS [facility] Last Admin: 03/25/16 21:45 Dose: 20 units Methylprednisolone Sodium Succinate (Solu-Medrol -) 40 mg IVPB BID [facility] Last Admin: 03/26/16 12:17 Dose: 40 mg Montelukast Sodium (Singulair -) 10 mg PO DAILY [facility] Last Admin: 03/26/16 12:20 Dose: 10 mg Multivitamins/Minerals/Vitamin C (Tab-A-Vit -) 1 tab PO DAILY [facility] Nystatin (Mycostatin Cream -) 1 applic TP BID [facility] Last Admin: 03/26/16 12:36 Dose: 1 applic Pantoprazole Sodium (Protonix -) 40 mg PO DAILY [facility] Last Admin: 03/26/16 12:19 Dose: 40 mg Potassium Chloride (Kcl Oral Solution -) 20 meq PO BID [facility] Last Admin: 03/26/16 12:17 Dose: 20 meq Solifenacin (Vesicare -) 5 mg PO DAILY [facility] Last Admin: 03/26/16 12:19 Dose: 5 mg - Objective Vital Signs: Vital Signs Temperature 98.4 F 03/26/16 10:00 Pulse Rate 104 H 03/26/16 10:00 Respiratory Rate 24 03/26/16 10:00 Blood Pressure 148/94 03/26/16 10:00 O2 Sat by Pulse Oximetry (%) 91 L 03/26/16 09:40 Constitutional: Yes: No Distress, Calm Cardiovascular: Yes: Regular Rate and Rhythm Respiratory: Yes: Diminished, Rhonchi Gastrointestinal: Yes: Normal Bowel Sounds, Soft, Abdomen, Obese. No: Distention, Tenderness Edema: No Labs: CBC, BMP 03/25/16 06:00 03/25/16 06:00 Problem List - Problems (1) Recurrent UTI (urinary tract infection) Code(s): N39.0 - URINARY TRACT INFECTION, SITE NOT SPECIFIED (2) Urinary tract infection Code(s): N39.0 - URINARY TRACT INFECTION, SITE NOT SPECIFIED Qualifiers: Urinary tract infection type: acute cystitis Hematuria presence: with hematuria Qualified Code(s): N30.01 - Acute cystitis with hematuria (3) Acute on chronic respiratory failure with hypoxia and hypercapnia Code(s): J96.21 - ACUTE AND CHRONIC RESPIRATORY FAILURE WITH HYPOXIA J96.22 - ACUTE AND CHRONIC RESPIRATORY FAILURE WITH HYPERCAPNIA (4) Asthma Code(s): J45.909 - UNSPECIFIED ASTHMA, UNCOMPLICATED Qualifiers: Asthma severity: moderate persistent Asthma complication type: with acute exacerbation Qualified Code(s): J45.41 - Moderate persistent asthma with (acute) exacerbation (5) CAD (coronary artery disease) Code(s): I25.10 - ATHSCL HEART DISEASE OF [place] CORONARY ARTERY W/O ANG PCTRS Qualifiers: Coronary Disease-Associated Artery/Lesion type: [place] artery [place] vs. transplanted heart: [place] heart Associated angina: without angina Qualified Code(s): I25.10 - Atherosclerotic heart disease of [place] coronary artery without angina pectoris (6) CHF exacerbation Code(s): I50.9 - HEART FAILURE, UNSPECIFIED Qualifiers: Congestive heart failure type: diastolic Qualified Code(s): I50.33 - Acute on chronic diastolic (congestive) heart failure (7) COPD exacerbation Code(s): J44.1 - CHRONIC OBSTRUCTIVE PULMONARY DISEASE W (ACUTE) EXACERBATION Assessment/Plan PLAN continue with Solumedrol, Lasix may taper slowly Repeat CXR changed suprapubic add Mucinex on O2 antibiotics -- discontinued Nebs, O2 DVT prophylaxis--lovenox prognosis guarded
[2016-03-26] MEDS: AMINO ACIDS/PROTEIN HYDROLYS SUGAR-FREE 30 ML PACKET PO SCH (17:44)
[2016-03-26] MEDS: guaiFENesin 600 MG TABLET.ER (FP) PO SCH (21:32)
[2016-03-27] MEDS: ALBUTEROL SO4 0.083% IH SOL 2.5 MG/3 ML VIAL.NEB. NEB SCH ×7 (00:39→22:20)
[2016-03-27] MEDS: FUROSEMIDE 40 MG/4 ML INJECTABLE VIAL IVPUSH SCH ×2 (05:56→15:13)
[2016-03-27] MEDS: INSULIN SLIDING SCALE (NOVOLOG) 1 VIAL SQ SCH ×3 (06:13→18:07)
[2016-03-27] MEDS: INSULIN DETEMIR 100 UNITS/ML MDV SQ SCH ×2 (06:15→21:50)
[2016-03-27 07:34] LABS: MCH 26.8 pg (25.7-33.7); MCHC 32.5 g/dl (32.0-35.9); MEAN CELL VOLUME 82.4 fl (80-96); MEAN PLT VOLUME 7.9 fl (7.5-11.1); PLATELET COUNT 221 K/MM3 (134-434); RDW 18.3 % (11.9-15.9); WHITE BLOOD COUNT 12.8 K/mm3 (4.0-10.0)
[2016-03-27] MEDS: AMINO ACIDS/PROTEIN HYDROLYS SUGAR-FREE 30 ML PACKET PO SCH ×2 (08:13→18:04)
[2016-03-27 08:21] LABS: ALK PHOS 96 U/L (45-117); ANION GAP 9 (8-16); BILIRUBIN,TOTAL 0.7 mg/dL (0.2-1.0); CALCIUM 9.3 mg/dL (8.5-10.1); CO2 40 mmol/L (21-32); CREATININE 0.8 mg/dL (0.7-1.3); GLUCOSE,RANDOM 158 mg/dL (74-106); SGOT/AST 22 U/L (15-37); SGPT/ALT 30 U/L (12-78); TOT PROT 6.1 g/dl (6.4-8.2)
[2016-03-27] MEDS: POTASSIUM CHLORIDE 40 MEQ/30 ML UNIT DOSE CUP PO SCH ×2 (11:09→21:50)
[2016-03-27] MEDS: SOLIFENACIN SUCCINATE 5 MG TAB (FP) PO SCH (11:09)
[2016-03-27] MEDS: GABAPENTIN 300 MG CAPSULE (FP) PO SCH ×4 (11:10→21:51)
[2016-03-27] MEDS: DOCUSATE SODIUM 100 MG CAPSULE (FP) PO SCH ×2 (11:10→21:44)
[2016-03-27] MEDS: guaiFENesin 600 MG TABLET.ER (FP) PO SCH ×2 (11:10→21:51)
[2016-03-27] MEDS: MULTIVITAMINS (DAILY MVI) TABLET (FP) PO SCH (11:10)
[2016-03-27] MEDS: PANTOPRAZOLE 40 MG TABLET (FP) PO SCH (11:10)
[2016-03-27] MEDS: ESCITALOPRAM OXALATE 20 MG TABLET (FP) PO SCH (11:11)
[2016-03-27] MEDS: MONTELUKAST NA 10 MG TABLET PO SCH (11:11)
[2016-03-27] MEDS: CLOPIDOGREL BISULFATE 75 MG TABLET (FP) PO SCH (11:11)
[2016-03-27] MEDS: amLODIPine BESYLATE 5 MG TABLET (FP) PO SCH (11:11)
[2016-03-27] MEDS: HEPARIN NA (PORCINE) 5,000 UNITS/ML 1ML VIAL SQ SCH ×2 (11:11→21:50)
[2016-03-27] MEDS: methylPREDNISolone NA SUCC 40 MG/1 ML VIAL IVPB SCH (11:12)
[2016-03-27] MEDS: NYSTATIN 100,000 UNIT/GM TOPICAL CREAM 15 GM TUBE TP SCH ×2 (11:18→22:00)
[2016-03-27] MEDS ORDERED: INSULIN (NOVOLOG) ASPART 100 UNITS/ML 10ML VIAL ONE ×2 (11:22→18:05)
--- NOTE | 2016-03-27 12:04 | PN ---
[id number] him - Current Medication List Current Medications: Active Medications Acetaminophen (Tylenol -) 650 mg PO Q6H PRN PRN Reason: FEVER OR PAIN Last Admin: 03/26/16 12:59 Dose: 650 mg Acetaminophen (Tylenol -) 325 mg PO Q12H PRN PRN Reason: FEVER OR PAIN Albuterol Sulfate (Ventolin 0.083% Nebulizer Soln -) 1 amp NEB Q3H [facility] Last Admin: 03/27/16 09:40 Dose: 1 amp Amino Acids (Prostat Sugar-Free Packet -) 30 ml PO BID@0800,1730 [facility] Last Admin: 03/27/16 08:13 Dose: 30 ml Amlodipine Besylate (Norvasc -) 5 mg PO DAILY [facility] Last Admin: 03/27/16 11:11 Dose: 5 mg Clopidogrel Bisulfate (Plavix -) 75 mg PO DAILY [facility] Last Admin: 03/27/16 11:11 Dose: 75 mg Docusate Sodium (Colace -) 100 mg PO BID [facility] Last Admin: 03/27/16 11:10 Dose: 100 mg Escitalopram Oxalate (Lexapro -) 20 mg PO DAILY [facility] Last Admin: 03/27/16 11:11 Dose: 20 mg Furosemide (Lasix Injection -) 40 mg IVPUSH BID@0600,1400 [facility] Last Admin: 03/27/16 05:56 Dose: 40 mg Gabapentin (Neurontin -) 300 mg PO QID [facility] Last Admin: 03/27/16 11:10 Dose: 300 mg Guaifenesin (Mucinex -) 600 mg PO BID [facility] Last Admin: 03/27/16 11:10 Dose: 600 mg Heparin Sodium (Porcine) (Heparin -) 5,000 unit SQ BID [facility] Last Admin: 03/27/16 11:11 Dose: 5,000 unit Insulin Aspart (Novolog Vial Sliding Scale -) 1 vial SQ TIDAC [facility] PRN Reason: Protocol Last Admin: 03/27/16 11:19 Dose: 6 units Insulin Detemir (Levemir Vial) 24 units SQ AM [facility] Last Admin: 03/27/16 06:15 Dose: 24 units Insulin Detemir (Levemir Vial) 20 units SQ HS [facility] Last Admin: 03/26/16 21:40 Dose: 20 units Methylprednisolone Sodium Succinate (Solu-Medrol -) 40 mg IVPB DAILY [facility] Last Admin: 03/27/16 11:12 Dose: 40 mg Montelukast Sodium (Singulair -) 10 mg PO DAILY [facility] Last Admin: 03/27/16 11:11 Dose: 10 mg Multivitamins/Minerals/Vitamin C (Tab-A-Vit -) 1 tab PO DAILY [facility] Last Admin: 03/27/16 11:10 Dose: 1 tab Nystatin (Mycostatin Cream -) 1 applic TP BID [facility] Last Admin: 03/27/16 11:18 Dose: 1 applic Pantoprazole Sodium (Protonix -) 40 mg PO DAILY [facility] Last Admin: 03/27/16 11:10 Dose: 40 mg Potassium Chloride (Kcl Oral Solution -) 20 meq PO BID [facility] Last Admin: 03/27/16 11:09 Dose: 20 meq Solifenacin (Vesicare -) 5 mg PO DAILY [facility] Last Admin: 03/27/16 11:09 Dose: 5 mg - Objective Vital Signs: Vital Signs Temperature 98.3 F 03/27/16 08:03 Pulse Rate 113 H 03/27/16 09:40 Respiratory Rate 20 03/27/16 08:03 Blood Pressure 154/94 03/27/16 08:03 O2 Sat by Pulse Oximetry (%) 99 03/27/16 09:40 Constitutional: Yes: No Distress Cardiovascular: Yes: Regular Rate and Rhythm Respiratory: Yes: Diminished, Rhonchi Gastrointestinal: Yes: Normal Bowel Sounds, Soft, Abdomen, Obese, Other ( ventral hernia). No: Distention, Tenderness Edema: No Labs: CBC, BMP 03/27/16 06:30 03/27/16 06:30 Problem List - Problems (1) Recurrent UTI (urinary tract infection) Code(s): N39.0 - URINARY TRACT INFECTION, SITE NOT SPECIFIED (2) Urinary tract infection Code(s): N39.0 - URINARY TRACT INFECTION, SITE NOT SPECIFIED Qualifiers: Urinary tract infection type: acute cystitis Hematuria presence: with hematuria Qualified Code(s): N30.01 - Acute cystitis with hematuria (3) Acute on chronic respiratory failure with hypoxia and hypercapnia Code(s): J96.21 - ACUTE AND CHRONIC RESPIRATORY FAILURE WITH HYPOXIA J96.22 - ACUTE AND CHRONIC RESPIRATORY FAILURE WITH HYPERCAPNIA (4) Asthma Code(s): J45.909 - UNSPECIFIED ASTHMA, UNCOMPLICATED Qualifiers: Asthma severity: moderate persistent Asthma complication type: with acute exacerbation Qualified Code(s): J45.41 - Moderate persistent asthma with (acute) exacerbation (5) CAD (coronary artery disease) Code(s): I25.10 - ATHSCL HEART DISEASE OF [place] CORONARY ARTERY W/O ANG PCTRS Qualifiers: Coronary Disease-Associated Artery/Lesion type: [place] artery [place] vs. transplanted heart: [place] heart Associated angina: without angina Qualified Code(s): I25.10 - Atherosclerotic heart disease of [place] coronary artery without angina pectoris (6) CHF exacerbation Code(s): I50.9 - HEART FAILURE, UNSPECIFIED Qualifiers: Congestive heart failure type: diastolic Qualified Code(s): I50.33 - Acute on chronic diastolic (congestive) heart failure (7) COPD exacerbation Code(s): J44.1 - CHRONIC OBSTRUCTIVE PULMONARY DISEASE W (ACUTE) EXACERBATION Assessment/Plan PLAN continue with Solumedrol, Lasix taper slowly add Mucomyst, chest PT on O2 antibiotics -- discontinued Nebs, O2 DVT prophylaxis--lovenox prognosis guarded
--- NOTE | 2016-03-27 15:19 | PN ---
Progress Note (short form) - Note Progress Note: PULMONARY AWAKE/ALERT SLIGHTLY DYSPNEIC AFEBRILE PALE DISTANT B/L BREATH SOUNDS S1S2 OBESE SOFT NO EDEMA LABS/MEDS/NOTES/IMAGING/MICRO REVIEWED A/P Acute COPD Exacerbation Chronic Hypoxic Respiratory Failure UTI Suprapubic Catheter CAD Atrial fibrillation DANK - BiPAP at night and PRN during day - inhaled bronchodilators - continue medrol at current dose, slow taper - chest PT - completed antibiotics - continue lasix - monitor urine output, creatinine - DVT prophylaxis Corrie POTTER MD
[2016-03-27] MEDS: ACETAMINOPHEN 325 MG TABLET (FP) PO PRN (18:53)
[2016-03-27] MEDS: ACETYLCYSTEINE 20% 200MG/ML 4 ML VIAL *FOR ORAL / INH USE ONLY IH SCH ×2 (19:07→22:00)
[2016-03-28] MEDS: ALBUTEROL SO4 0.083% IH SOL 2.5 MG/3 ML VIAL.NEB. NEB SCH ×8 (02:53→22:22)
[2016-03-28] MEDS: ACETYLCYSTEINE 20% 200MG/ML 4 ML VIAL *FOR ORAL / INH USE ONLY IH SCH ×5 (06:22→21:28)
[2016-03-28] MEDS: FUROSEMIDE 40 MG/4 ML INJECTABLE VIAL IVPUSH SCH ×2 (06:28→17:49)
[2016-03-28] MEDS: INSULIN DETEMIR 100 UNITS/ML MDV SQ SCH ×2 (06:29→21:28)
[2016-03-28] MEDS: INSULIN SLIDING SCALE (NOVOLOG) 1 VIAL SQ SCH ×3 (06:29→18:05)
--- NOTE | 2016-03-28 10:02 | PN ---
Progress Note (short form) - Note Progress Note: PULMONARY Confused this AM with audible rhonchi. Last Vital Signs Temp Pulse Resp BP Pulse Ox 98.2 F 107 H 22 144/77 96 03/28/16 07:41 03/28/16 09:48 03/28/16 07:41 03/28/16 07:41 03/28/16 09:48 Gen: lethargic, tachypneic Heart: RRR Lung: distant breath sounds, bilateral rhonchi, wheezes Abd: soft, nontender Ext: no edema CBC, BMP 03/27/16 06:30 03/27/16 06:30 Active Medications Acetaminophen (Tylenol -) 650 mg PO Q6H PRN PRN Reason: FEVER OR PAIN Last Admin: 03/27/16 18:53 Dose: 650 mg Acetaminophen (Tylenol -) 325 mg PO Q12H PRN PRN Reason: FEVER OR PAIN Acetylcysteine (Mucomyst 20 Oral / Inh Use Only*) 100 mg IH Q4HWA [facility] Last Admin: 03/28/16 06:22 Dose: 100 mg Albuterol Sulfate (Ventolin 0.083% Nebulizer Soln -) 1 amp NEB Q3H [facility] Last Admin: 03/28/16 09:39 Dose: 1 amp Amino Acids (Prostat Sugar-Free Packet -) 30 ml PO BID@0800,1730 [facility] Last Admin: 03/27/16 18:04 Dose: 30 ml Amlodipine Besylate (Norvasc -) 5 mg PO DAILY [facility] Last Admin: 03/27/16 11:11 Dose: 5 mg Clopidogrel Bisulfate (Plavix -) 75 mg PO DAILY [facility] Last Admin: 03/27/16 11:11 Dose: 75 mg Docusate Sodium (Colace -) 100 mg PO BID [facility] Last Admin: 03/27/16 21:44 Dose: 100 mg Escitalopram Oxalate (Lexapro -) 20 mg PO DAILY [facility] Last Admin: 03/27/16 11:11 Dose: 20 mg Furosemide (Lasix Injection -) 40 mg IVPUSH BID@0600,1400 [facility] Last Admin: 03/28/16 06:28 Dose: 40 mg Gabapentin (Neurontin -) 300 mg PO QID [facility] Last Admin: 03/27/16 21:51 Dose: 300 mg Guaifenesin (Mucinex -) 600 mg PO BID [facility] Last Admin: 03/27/16 21:51 Dose: 600 mg Heparin Sodium (Porcine) (Heparin -) 5,000 unit SQ BID [facility] Last Admin: 03/27/16 21:50 Dose: 5,000 unit Insulin Aspart (Novolog Vial Sliding Scale -) 1 vial SQ TIDAC [facility] PRN Reason: Protocol Last Admin: 03/28/16 06:29 Dose: 2 units Insulin Detemir (Levemir Vial) 24 units SQ AM [facility] Last Admin: 03/28/16 06:29 Dose: 24 units Insulin Detemir (Levemir Vial) 20 units SQ HS [facility] Last Admin: 03/27/16 21:50 Dose: 20 units Methylprednisolone Sodium Succinate (Solu-Medrol -) 40 mg IVPB DAILY [facility] Last Admin: 03/27/16 11:12 Dose: 40 mg Montelukast Sodium (Singulair -) 10 mg PO DAILY [facility] Last Admin: 03/27/16 11:11 Dose: 10 mg Multivitamins/Minerals/Vitamin C (Tab-A-Vit -) 1 tab PO DAILY [facility] Last Admin: 03/27/16 11:10 Dose: 1 tab Nystatin (Mycostatin Cream -) 1 applic TP BID [facility] Last Admin: 03/27/16 22:00 Dose: 1 applic Pantoprazole Sodium (Protonix -) 40 mg PO DAILY [facility] Last Admin: 03/27/16 11:10 Dose: 40 mg Potassium Chloride (Kcl Oral Solution -) 20 meq PO BID [facility] Last Admin: 03/27/16 21:50 Dose: 20 meq Solifenacin (Vesicare -) 5 mg PO DAILY [facility] Last Admin: 03/27/16 11:09 Dose: 5 mg A/P Acute COPD Exacerbation Chronic Hypoxic Respiratory Failure UTI Suprapubic Catheter CAD Atrial fibrillation DANK - place back on BiPAP - check ABG - inhaled bronchodilators - continue medrol at current dose - chest PT - completed antibiotics - continue lasix - monitor urine output, creatinine - DVT prophylaxis - appears that pt with progressive decline despite aggressive therapy with multiple hospitalizations in the past year, agree with palliative care evaluation to discuss goals of care and advanced directives
[2016-03-28] MEDS: AMINO ACIDS/PROTEIN HYDROLYS SUGAR-FREE 30 ML PACKET PO SCH ×2 (10:51→17:50)
[2016-03-28] MEDS: MONTELUKAST NA 10 MG TABLET PO SCH (10:51)
[2016-03-28] MEDS: MULTIVITAMINS (DAILY MVI) TABLET (FP) PO SCH (10:51)
[2016-03-28] MEDS: DOCUSATE SODIUM 100 MG CAPSULE (FP) PO SCH ×2 (10:51→21:27)
[2016-03-28] MEDS: SOLIFENACIN SUCCINATE 5 MG TAB (FP) PO SCH (10:51)
[2016-03-28] MEDS: amLODIPine BESYLATE 5 MG TABLET (FP) PO SCH (10:51)
[2016-03-28 10:52] LABS: ARTERIAL BLD GAS O2 SATURATION 95.2 % (90-98.9); ARTERIAL BLOOD GAS PO2 73.5 mmHg (68-100)
[2016-03-28] MEDS: CLOPIDOGREL BISULFATE 75 MG TABLET (FP) PO SCH (10:52)
[2016-03-28] MEDS: GABAPENTIN 300 MG CAPSULE (FP) PO SCH ×4 (10:52→21:29)
[2016-03-28] MEDS: PANTOPRAZOLE 40 MG TABLET (FP) PO SCH (10:52)
[2016-03-28] MEDS: NYSTATIN 100,000 UNIT/GM TOPICAL CREAM 15 GM TUBE TP SCH ×2 (10:52→21:29)
[2016-03-28] MEDS: POTASSIUM CHLORIDE 40 MEQ/30 ML UNIT DOSE CUP PO SCH ×2 (10:52→21:27)
[2016-03-28] MEDS: HEPARIN NA (PORCINE) 5,000 UNITS/ML 1ML VIAL SQ SCH ×2 (10:52→21:27)
[2016-03-28] MEDS: ESCITALOPRAM OXALATE 20 MG TABLET (FP) PO SCH (10:52)
[2016-03-28] MEDS: guaiFENesin 600 MG TABLET.ER (FP) PO SCH ×2 (10:52→21:28)
[2016-03-28 10:53] LABS: ALLENS TEST POSITIVE; ART PUNCT SITE LEFT RADIAL; ARTERIAL BLOOD GAS BASE EXCESS 11.6 meq/l (-2-2); ARTERIAL BLOOD GAS HCO3 38.3 meq/L (22-26); LPM/O2% 40%; PT. ON O2? YES; TYPE OF O2 VENTI MASK
[2016-03-28] MEDS: methylPREDNISolone NA SUCC 40 MG/1 ML VIAL IVPB SCH ×2 (10:53→21:29)
[2016-03-28 10:54] LABS: ARTERIAL BLOOD GAS pH 7.43 (7.35-7.45)
--- NOTE | 2016-03-28 12:08 | PN ---
Progress Note, Physician Chief Complaint: Dyspneic Awake, looks fatigued - Current Medication List Current Medications: Active Medications Acetaminophen (Tylenol -) 650 mg PO Q6H PRN PRN Reason: FEVER OR PAIN Last Admin: 03/27/16 18:53 Dose: 650 mg Acetaminophen (Tylenol -) 325 mg PO Q12H PRN PRN Reason: FEVER OR PAIN Acetylcysteine (Mucomyst 20 Oral / Inh Use Only*) 100 mg IH Q4HWA [facility] Last Admin: 03/28/16 10:52 Dose: 100 mg Albuterol Sulfate (Ventolin 0.083% Nebulizer Soln -) 1 amp NEB Q3H [facility] Last Admin: 03/28/16 12:03 Dose: 1 amp Amino Acids (Prostat Sugar-Free Packet -) 30 ml PO BID@0800,1730 [facility] Last Admin: 03/28/16 10:51 Dose: 30 ml Amlodipine Besylate (Norvasc -) 5 mg PO DAILY [facility] Last Admin: 03/28/16 10:51 Dose: 5 mg Clopidogrel Bisulfate (Plavix -) 75 mg PO DAILY [facility] Last Admin: 03/28/16 10:52 Dose: 75 mg Docusate Sodium (Colace -) 100 mg PO BID [facility] Last Admin: 03/28/16 10:51 Dose: 100 mg Escitalopram Oxalate (Lexapro -) 20 mg PO DAILY [facility] Last Admin: 03/28/16 10:52 Dose: 20 mg Furosemide (Lasix Injection -) 40 mg IVPUSH BID@0600,1400 [facility] Last Admin: 03/28/16 06:28 Dose: 40 mg Gabapentin (Neurontin -) 300 mg PO QID [facility] Last Admin: 03/28/16 10:52 Dose: 300 mg Guaifenesin (Mucinex -) 600 mg PO BID [facility] Last Admin: 03/28/16 10:52 Dose: 600 mg Heparin Sodium (Porcine) (Heparin -) 5,000 unit SQ BID [facility] Last Admin: 03/28/16 10:52 Dose: 5,000 unit Insulin Aspart (Novolog Vial Sliding Scale -) 1 vial SQ TIDAC [facility] PRN Reason: Protocol Last Admin: 03/28/16 06:29 Dose: 2 units Insulin Detemir (Levemir Vial) 24 units SQ AM [facility] Last Admin: 03/28/16 06:29 Dose: 24 units Insulin Detemir (Levemir Vial) 20 units SQ HS [facility] Last Admin: 03/27/16 21:50 Dose: 20 units Methylprednisolone Sodium Succinate (Solu-Medrol -) 40 mg IVPB DAILY [facility] Last Admin: 03/28/16 10:53 Dose: 40 mg Montelukast Sodium (Singulair -) 10 mg PO DAILY [facility] Last Admin: 03/28/16 10:51 Dose: 10 mg Multivitamins/Minerals/Vitamin C (Tab-A-Vit -) 1 tab PO DAILY [facility] Last Admin: 03/28/16 10:51 Dose: 1 tab Nystatin (Mycostatin Cream -) 1 applic TP BID [facility] Last Admin: 03/28/16 10:52 Dose: 1 applic Pantoprazole Sodium (Protonix -) 40 mg PO DAILY [facility] Last Admin: 03/28/16 10:52 Dose: 40 mg Potassium Chloride (Kcl Oral Solution -) 20 meq PO BID [facility] Last Admin: 03/28/16 10:52 Dose: 20 meq Solifenacin (Vesicare -) 5 mg PO DAILY [facility] Last Admin: 03/28/16 10:51 Dose: 5 mg - Objective Vital Signs: Vital Signs Temperature 98.2 F 03/28/16 07:41 Pulse Rate 107 H 03/28/16 09:48 Respiratory Rate 22 03/28/16 07:41 Blood Pressure 144/77 03/28/16 07:41 O2 Sat by Pulse Oximetry (%) 96 03/28/16 09:48 Constitutional: Yes: Anxious, Moderate Distress Cardiovascular: Yes: Regular Rate and Rhythm Respiratory: Yes: Diminished Gastrointestinal: Yes: Normal Bowel Sounds, Soft, Abdomen, Obese, Other ( ventral hernia). No: Distention, Tenderness Edema: No Psychiatric: Yes: Alert Labs: CBC, BMP 03/27/16 06:30 03/27/16 06:30 Problem List - Problems (1) Recurrent UTI (urinary tract infection) Code(s): N39.0 - URINARY TRACT INFECTION, SITE NOT SPECIFIED (2) Urinary tract infection Code(s): N39.0 - URINARY TRACT INFECTION, SITE NOT SPECIFIED Qualifiers: Urinary tract infection type: acute cystitis Hematuria presence: with hematuria Qualified Code(s): N30.01 - Acute cystitis with hematuria (3) Acute on chronic respiratory failure with hypoxia and hypercapnia Code(s): J96.21 - ACUTE AND CHRONIC RESPIRATORY FAILURE WITH HYPOXIA J96.22 - ACUTE AND CHRONIC RESPIRATORY FAILURE WITH HYPERCAPNIA (4) Asthma Code(s): J45.909 - UNSPECIFIED ASTHMA, UNCOMPLICATED Qualifiers: Asthma severity: moderate persistent Asthma complication type: with acute exacerbation Qualified Code(s): J45.41 - Moderate persistent asthma with (acute) exacerbation (5) CAD (coronary artery disease) Code(s): I25.10 - ATHSCL HEART DISEASE OF [place] CORONARY ARTERY W/O ANG PCTRS Qualifiers: Coronary Disease-Associated Artery/Lesion type: [place] artery [place] vs. transplanted heart: [place] heart Associated angina: without angina Qualified Code(s): I25.10 - Atherosclerotic heart disease of [place] coronary artery without angina pectoris (6) CHF exacerbation Code(s): I50.9 - HEART FAILURE, UNSPECIFIED Qualifiers: Congestive heart failure type: diastolic Qualified Code(s): I50.33 - Acute on chronic diastolic (congestive) heart failure (7) COPD exacerbation Code(s): J44.1 - CHRONIC OBSTRUCTIVE PULMONARY DISEASE W (ACUTE) EXACERBATION Assessment/Plan PLAN continue with Solumedrol, Lasix increase Solumedrol today pt does not appear to be well he has repeated admissions for COPD and chronic respiratory failure ongoing conversations about goals of care, advanced directives on O2 antibiotics -- discontinued Nebs, O2 DVT prophylaxis--lovenox prognosis guarded
[2016-03-28] MEDS: morphine CARPU-JECT 2 MG/1 ML DISP.SYRIN IVPUSH PRN (20:01)
[2016-03-29] MEDS: ALBUTEROL SO4 0.083% IH SOL 2.5 MG/3 ML VIAL.NEB. NEB SCH ×8 (00:04→18:11)
[2016-03-29] MEDS: ACETYLCYSTEINE 20% 200MG/ML 4 ML VIAL *FOR ORAL / INH USE ONLY IH SCH ×4 (05:58→17:28)
[2016-03-29] MEDS: FUROSEMIDE 40 MG/4 ML INJECTABLE VIAL IVPUSH SCH ×2 (05:58→17:27)
[2016-03-29] MEDS: morphine CARPU-JECT 2 MG/1 ML DISP.SYRIN IVPUSH PRN ×3 (05:59→22:32)
[2016-03-29] MEDS: INSULIN DETEMIR 100 UNITS/ML MDV SQ SCH ×2 (06:01→22:59)
[2016-03-29] MEDS: INSULIN SLIDING SCALE (NOVOLOG) 1 VIAL SQ SCH ×3 (06:01→17:27)
[2016-03-29] MEDS ORDERED: INSULIN (NOVOLOG) ASPART 100 UNITS/ML 10ML VIAL ONE (06:35)
--- NOTE | 2016-03-29 08:59 | PN ---
Progress Note (short form) - Note Progress Note: SUBJECTIVE: Patient seen and examined. Lethargic but arousable. Congested. Secretions present. Patient signed DNR yesterday in presence of his daughter. OBJECTIVE: Vital Signs - 8 hr 03/29/16 07:59 Temperature 98.1 F Pulse Rate 108 H Respiratory 20 Rate Blood Pressure 158/96 Intake & Output 03/28/16 03/29/16 03/29/16 23:59 07:59 15:59 Weight 89.131 kg Active Medications Acetaminophen (Tylenol -) 650 mg PO Q6H PRN PRN Reason: FEVER OR PAIN Last Admin: 03/27/16 18:53 Dose: 650 mg Acetaminophen (Tylenol -) 325 mg PO Q12H PRN PRN Reason: FEVER OR PAIN Acetylcysteine (Mucomyst 20 Oral / Inh Use Only*) 100 mg IH Q4HWA [facility] Last Admin: 03/29/16 05:58 Dose: 100 mg Albuterol Sulfate (Ventolin 0.083% Nebulizer Soln -) 1 amp NEB Q3H [facility] Last Admin: 03/29/16 06:03 Dose: 1 amp Amino Acids (Prostat Sugar-Free Packet -) 30 ml PO BID@0800,1730 [facility] Last Admin: 03/28/16 17:50 Dose: 30 ml Amlodipine Besylate (Norvasc -) 5 mg PO DAILY [facility] Last Admin: 03/28/16 10:51 Dose: 5 mg Clopidogrel Bisulfate (Plavix -) 75 mg PO DAILY [facility] Last Admin: 03/28/16 10:52 Dose: 75 mg Docusate Sodium (Colace -) 100 mg PO BID [facility] Last Admin: 03/28/16 21:27 Dose: 100 mg Escitalopram Oxalate (Lexapro -) 20 mg PO DAILY [facility] Last Admin: 03/28/16 10:52 Dose: 20 mg Furosemide (Lasix Injection -) 40 mg IVPUSH BID@0600,1400 [facility] Last Admin: 03/29/16 05:58 Dose: 40 mg Gabapentin (Neurontin -) 300 mg PO QID [facility] Last Admin: 03/28/16 21:29 Dose: 300 mg Guaifenesin (Mucinex -) 600 mg PO BID [facility] Last Admin: 03/28/16 21:28 Dose: 600 mg Heparin Sodium (Porcine) (Heparin -) 5,000 unit SQ BID [facility] Last Admin: 03/28/16 21:27 Dose: 5,000 unit Insulin Aspart (Novolog Vial Sliding Scale -) 1 vial SQ TIDAC [facility] PRN Reason: Protocol Last Admin: 03/29/16 06:01 Dose: 4 units Insulin Detemir (Levemir Vial) 24 units SQ AM [facility] Last Admin: 03/29/16 06:01 Dose: 24 units Insulin Detemir (Levemir Vial) 20 units SQ HS [facility] Last Admin: 03/28/16 21:28 Dose: 20 units Methylprednisolone Sodium Succinate (Solu-Medrol -) 40 mg IVPB BID [facility] Last Admin: 03/28/16 21:29 Dose: 40 mg Montelukast Sodium (Singulair -) 10 mg PO DAILY [facility] Last Admin: 03/28/16 10:51 Dose: 10 mg Morphine Sulfate (Morphine Injection -) 2 mg IVPUSH Q6H PRN PRN Reason: PAIN Last Admin: 03/29/16 05:59 Dose: 2 mg Multivitamins/Minerals/Vitamin C (Tab-A-Vit -) 1 tab PO DAILY [facility] Last Admin: 03/28/16 10:51 Dose: 1 tab Nystatin (Mycostatin Cream -) 1 applic TP BID [facility] Last Admin: 03/28/16 21:29 Dose: 1 applic Pantoprazole Sodium (Protonix -) 40 mg PO DAILY [facility] Last Admin: 03/28/16 10:52 Dose: 40 mg Potassium Chloride (Kcl Oral Solution -) 20 meq PO BID [facility] Last Admin: 03/28/16 21:27 Dose: 20 meq Solifenacin (Vesicare -) 5 mg PO DAILY [facility] Last Admin: 03/28/16 10:51 Dose: 5 mg CBC, BMP 03/27/16 06:30 03/27/16 06:30 Laboratory Results - last 24 hr 03/28/16 03/28/16 03/28/16 10:30 10:57 18:04 Anticoagulation Therapy Y Puncture Site Left radial ABG pH 7.43 ABG pCO2 at Pt Temp 57.5 H ABG pO2 at Pt Temp 73.5 ABG HCO3 38.3 H ABG O2 Sat (Measured) 95.2 ABG O2 Content 20.1 ABG Base Excess 11.6 H Romeo Test Positive O2 Delivery Device Venti mask Oxygen Flow Rate 40% Vent Mode Y Vent Rate Y Mechanical Rate Y PEEP 0.0 Pressure Support Vent Y POC Glucometer 125 175 03/28/16 03/29/16 21:26 05:24 Anticoagulation Therapy Puncture Site ABG pH ABG pCO2 at Pt Temp ABG pO2 at Pt Temp ABG HCO3 ABG O2 Sat (Measured) ABG O2 Content ABG Base Excess Romeo Test O2 Delivery Device Oxygen Flow Rate Vent Mode Vent Rate Mechanical Rate PEEP Pressure Support Vent POC Glucometer 148 209 PHYSICAL EXAMINATION: Constitutional: Yes: Lethargic but arousable. Moderate Distress Cardiovascular: Yes: Regular Rate and Rhythm Respiratory: Yes: Diminished Gastrointestinal: Yes: Normal Bowel Sounds, Soft, Abdomen, Obese, Other ( ventral hernia). No: Distention, Tenderness Edema: No Psychiatric: Yes: Lethargic but arousable. ASSESSMENT & PLAN: - Overall condition remains poor. - Continue present care. - Patient has signed DNR. - Orders placed. - Ongoing conversations about goals of care, advanced directives - Will follow. Problem List - Problems (1) Recurrent UTI (urinary tract infection) Code(s): N39.0 - URINARY TRACT INFECTION, SITE NOT SPECIFIED (2) Urinary tract infection Code(s): N39.0 - URINARY TRACT INFECTION, SITE NOT SPECIFIED Qualifiers: Urinary tract infection type: acute cystitis Hematuria presence: with hematuria Qualified Code(s): N30.01 - Acute cystitis with hematuria (3) Acute on chronic respiratory failure with hypoxia and hypercapnia Code(s): J96.21 - ACUTE AND CHRONIC RESPIRATORY FAILURE WITH HYPOXIA J96.22 - ACUTE AND CHRONIC RESPIRATORY FAILURE WITH HYPERCAPNIA (4) Asthma Code(s): J45.909 - UNSPECIFIED ASTHMA, UNCOMPLICATED Qualifiers: Asthma severity: moderate persistent Asthma complication type: with acute exacerbation Qualified Code(s): J45.41 - Moderate persistent asthma with (acute) exacerbation (5) CAD (coronary artery disease) Code(s): I25.10 - ATHSCL HEART DISEASE OF [place] CORONARY ARTERY W/O ANG PCTRS Qualifiers: Coronary Disease-Associated Artery/Lesion type: [place] artery [place] vs. transplanted heart: [place] heart Associated angina: without angina Qualified Code(s): I25.10 - Atherosclerotic heart disease of [place] coronary artery without angina pectoris (6) CHF exacerbation Code(s): I50.9 - HEART FAILURE, UNSPECIFIED Qualifiers: Congestive heart failure type: diastolic Qualified Code(s): I50.33 - Acute on chronic diastolic (congestive) heart failure (7) COPD exacerbation Code(s): J44.1 - CHRONIC OBSTRUCTIVE PULMONARY DISEASE W (ACUTE) EXACERBATION Documentation prepared by Kendra España, acting as a medical lab specialist for Demetrius Bradley MD.
[2016-03-29] MEDS: DOCUSATE SODIUM 100 MG CAPSULE (FP) PO SCH ×2 (10:15→22:30)
[2016-03-29] MEDS: AMINO ACIDS/PROTEIN HYDROLYS SUGAR-FREE 30 ML PACKET PO SCH ×2 (10:15→17:28)
[2016-03-29] MEDS: POTASSIUM CHLORIDE 40 MEQ/30 ML UNIT DOSE CUP PO SCH ×2 (10:16→22:30)
[2016-03-29] MEDS: ESCITALOPRAM OXALATE 20 MG TABLET (FP) PO SCH (10:16)
[2016-03-29] MEDS: amLODIPine BESYLATE 5 MG TABLET (FP) PO SCH (10:17)
[2016-03-29] MEDS: CLOPIDOGREL BISULFATE 75 MG TABLET (FP) PO SCH (10:17)
[2016-03-29] MEDS: guaiFENesin 600 MG TABLET.ER (FP) PO SCH ×2 (10:17→22:30)
[2016-03-29] MEDS: PANTOPRAZOLE 40 MG TABLET (FP) PO SCH (10:18)
[2016-03-29] MEDS: NYSTATIN 100,000 UNIT/GM TOPICAL CREAM 15 GM TUBE TP SCH ×2 (10:22→22:33)
[2016-03-29] MEDS: GABAPENTIN 300 MG CAPSULE (FP) PO SCH ×4 (10:23→22:31)
[2016-03-29] MEDS: MONTELUKAST NA 10 MG TABLET PO SCH (10:24)
[2016-03-29] MEDS: MULTIVITAMINS (DAILY MVI) TABLET (FP) PO SCH (10:24)
[2016-03-29] MEDS: SOLIFENACIN SUCCINATE 5 MG TAB (FP) PO SCH (10:24)
[2016-03-29] MEDS: SCOPOLAMINE HYDROBROMIDE 1 PATCH PATCH.TD72 TD SCH (10:33)
[2016-03-29] MEDS: HEPARIN NA (PORCINE) 5,000 UNITS/ML 1ML VIAL SQ SCH ×2 (10:35→22:33)
[2016-03-29] MEDS: methylPREDNISolone NA SUCC 40 MG/1 ML VIAL IVPB SCH ×2 (10:35→22:32)
--- NOTE | 2016-03-29 14:16 | PN ---
Progress Note (short form) - Note Progress Note: PULMONARY AWAKE/ALERT SLIGHTLY DYSPNEIC AFEBRILE PALE DISTANT B/L BREATH SOUNDS L>R S1S2 OBESE SOFT NO EDEMA LABS/MEDS/NOTES/IMAGING/MICRO REVIEWED A/P Acute COPD Exacerbation Chronic Hypoxic Respiratory Failure UTI Suprapubic Catheter CAD Atrial fibrillation DANK - BiPAP at night and PRN during day - inhaled bronchodilators - continue medrol at current dose, slow taper - chest PT - completed antibiotics - continue lasix - monitor urine output, creatinine - DVT prophylaxis - DNR/DNI Corrie POTTER MD
[2016-03-29] MEDS ORDERED: PT OWN MED DRAWER 7, Y5N ONE (22:06)
[2016-03-30] MEDS: ALBUTEROL SO4 0.083% IH SOL 2.5 MG/3 ML VIAL.NEB. NEB SCH ×7 (00:17→22:42)
[2016-03-30] MEDS: FUROSEMIDE 40 MG/4 ML INJECTABLE VIAL IVPUSH SCH ×2 (06:11→13:24)
[2016-03-30] MEDS: INSULIN SLIDING SCALE (NOVOLOG) 1 VIAL SQ SCH ×3 (06:12→17:36)
[2016-03-30] MEDS: INSULIN DETEMIR 100 UNITS/ML MDV SQ SCH ×2 (06:12→22:19)
[2016-03-30] MEDS: morphine CARPU-JECT 2 MG/1 ML DISP.SYRIN IVPUSH PRN ×3 (06:53→22:02)
[2016-03-30] MEDS: AMINO ACIDS/PROTEIN HYDROLYS SUGAR-FREE 30 ML PACKET PO SCH ×2 (08:56→17:37)
[2016-03-30] MEDS: HEPARIN NA (PORCINE) 5,000 UNITS/ML 1ML VIAL SQ SCH ×2 (10:34→22:03)
[2016-03-30] MEDS: methylPREDNISolone NA SUCC 40 MG/1 ML VIAL IVPB SCH ×2 (10:34→22:02)
[2016-03-30] MEDS: POTASSIUM CHLORIDE 40 MEQ/30 ML UNIT DOSE CUP PO SCH ×2 (10:35→22:01)
[2016-03-30] MEDS: DOCUSATE SODIUM 100 MG CAPSULE (FP) PO SCH ×2 (10:35→22:01)
[2016-03-30] MEDS: NYSTATIN 100,000 UNIT/GM TOPICAL CREAM 15 GM TUBE TP SCH ×2 (10:36→22:04)
[2016-03-30] MEDS: ESCITALOPRAM OXALATE 20 MG TABLET (FP) PO SCH (10:36)
[2016-03-30] MEDS: GABAPENTIN 300 MG CAPSULE (FP) PO SCH ×4 (10:36→22:01)
[2016-03-30] MEDS: guaiFENesin 600 MG TABLET.ER (FP) PO SCH ×2 (10:36→22:58)
[2016-03-30] MEDS: PANTOPRAZOLE 40 MG TABLET (FP) PO SCH (10:37)
[2016-03-30] MEDS: MONTELUKAST NA 10 MG TABLET PO SCH (10:37)
[2016-03-30] MEDS: CLOPIDOGREL BISULFATE 75 MG TABLET (FP) PO SCH (10:37)
[2016-03-30] MEDS: amLODIPine BESYLATE 5 MG TABLET (FP) PO SCH (10:37)
[2016-03-30] MEDS: MULTIVITAMINS (DAILY MVI) TABLET (FP) PO SCH (10:38)
[2016-03-30] MEDS: SOLIFENACIN SUCCINATE 5 MG TAB (FP) PO SCH (10:38)
--- NOTE | 2016-03-30 12:35 | PN ---
Progress Note (short form) - Note Progress Note: pt remains lethargic but awake remains sob. denies pain. pulmonary f/u noted/ appreciated Vital Signs Temp 98.0 F 03/30/16 10:32 Pulse 115 H 03/30/16 10:32 Resp 22 03/30/16 10:32 BP 146/65 03/30/16 10:32 Pulse Ox 98 03/29/16 18:10 Intake & Output 03/29/16 03/30/16 03/30/16 23:59 11:59 23:59 Intake Total 650 390 Output Total 1450 200 Balance -800 190 Weight 197 lb 8 oz Intake: IVPB 50 30 Oral 600 360 Output: Urine 1450 200 Supra Pubic Tube 1450 200 Other: Voiding Method Indwelling Catheter Indwelling Catheter # Unmeasured Voids Supra Pubic Tube 600 Bowel Movement Yes Yes # Bowel Movements 1 3 Weight Measurement Method Built in [facility] Active Medications Acetaminophen (Tylenol -) 650 mg PO Q6H PRN PRN Reason: FEVER OR PAIN Last Admin: 03/27/16 18:53 Dose: 650 mg Acetaminophen (Tylenol -) 325 mg PO Q12H PRN PRN Reason: FEVER OR PAIN Acetylcysteine (Mucomyst 20 Oral / Inh Use Only*) 100 mg IH Q4HWA [facility] Last Admin: 03/29/16 17:28 Dose: Not Given Albuterol Sulfate (Ventolin 0.083% Nebulizer Soln -) 1 amp NEB Q3H [facility] Last Admin: 03/30/16 07:29 Dose: 1 amp Amino Acids (Prostat Sugar-Free Packet -) 30 ml PO BID@0800,1730 [facility] Last Admin: 03/30/16 08:56 Dose: Not Given Amlodipine Besylate (Norvasc -) 5 mg PO DAILY [facility] Last Admin: 03/30/16 10:37 Dose: Not Given Clopidogrel Bisulfate (Plavix -) 75 mg PO DAILY [facility] Last Admin: 03/30/16 10:37 Dose: Not Given Docusate Sodium (Colace -) 100 mg PO BID [facility] Last Admin: 03/30/16 10:35 Dose: Not Given Escitalopram Oxalate (Lexapro -) 20 mg PO DAILY [facility] Last Admin: 03/30/16 10:36 Dose: Not Given Furosemide (Lasix Injection -) 40 mg IVPUSH BID@0600,1400 [facility] Last Admin: 03/30/16 06:11 Dose: 40 mg Gabapentin (Neurontin -) 300 mg PO QID [facility] Last Admin: 03/30/16 10:36 Dose: Not Given Guaifenesin (Mucinex -) 600 mg PO BID [facility] Last Admin: 03/30/16 10:36 Dose: Not Given Heparin Sodium (Porcine) (Heparin -) 5,000 unit SQ BID [facility] Last Admin: 03/30/16 10:34 Dose: 5,000 unit Insulin Aspart (Novolog Vial Sliding Scale -) 1 vial SQ TIDAC [facility] PRN Reason: Protocol Last Admin: 03/30/16 10:44 Dose: 2 units Insulin Detemir (Levemir Vial) 24 units SQ AM [facility] Last Admin: 03/30/16 06:12 Dose: 24 units Insulin Detemir (Levemir Vial) 20 units SQ HS [facility] Last Admin: 03/29/16 22:59 Dose: 20 units Methylprednisolone Sodium Succinate (Solu-Medrol -) 40 mg IVPB BID [facility] Last Admin: 03/30/16 10:34 Dose: 40 mg Montelukast Sodium (Singulair -) 10 mg PO DAILY [facility] Last Admin: 03/30/16 10:37 Dose: Not Given Morphine Sulfate (Morphine Injection -) 2 mg IVPUSH Q6H PRN PRN Reason: PAIN Last Admin: 03/30/16 06:53 Dose: 2 mg Multivitamins/Minerals/Vitamin C (Tab-A-Vit -) 1 tab PO DAILY [facility] Last Admin: 03/30/16 10:38 Dose: Not Given Nystatin (Mycostatin Cream -) 1 applic TP BID [facility] Last Admin: 03/30/16 10:36 Dose: 1 applic Pantoprazole Sodium (Protonix -) 40 mg PO DAILY [facility] Last Admin: 03/30/16 10:37 Dose: Not Given Potassium Chloride (Kcl Oral Solution -) 20 meq PO BID [facility] Last Admin: 03/30/16 10:35 Dose: Not Given Scopolamine HBr (Transderm-Scop -) 1 patch TD Q72H [facility] Last Admin: 03/29/16 10:33 Dose: 1 patch Solifenacin (Vesicare -) 5 mg PO DAILY [facility] Last Admin: 03/30/16 10:38 Dose: Not Given CBC, BMP 03/27/16 06:30 03/27/16 06:30 PHYSICAL EXAMINATION: Constitutional: Yes: Lethargic but arousable. Cardiovascular: Yes: Regular Rate and Rhythm Respiratory: Yes: Diminished Gastrointestinal: Yes: Normal Bowel Sounds, Soft, Abdomen, Obese, Other ( ventral hernia). No: Distention, Tenderness Edema: No Psychiatric: Yes: Lethargic but arousable. ASSESSMENT & PLAN: - Overall condition remains same. --Meds reviewed - Continue present care. - f/u labs - Will follow. Problem List - Problems (1) Recurrent UTI (urinary tract infection) Code(s): N39.0 - URINARY TRACT INFECTION, SITE NOT SPECIFIED (2) Urinary tract infection Code(s): N39.0 - URINARY TRACT INFECTION, SITE NOT SPECIFIED Qualifiers: Urinary tract infection type: acute cystitis Hematuria presence: with hematuria Qualified Code(s): N30.01 - Acute cystitis with hematuria (3) Acute on chronic respiratory failure with hypoxia and hypercapnia Code(s): J96.21 - ACUTE AND CHRONIC RESPIRATORY FAILURE WITH HYPOXIA J96.22 - ACUTE AND CHRONIC RESPIRATORY FAILURE WITH HYPERCAPNIA (4) Asthma Code(s): J45.909 - UNSPECIFIED ASTHMA, UNCOMPLICATED Qualifiers: Asthma severity: moderate persistent Asthma complication type: with acute exacerbation Qualified Code(s): J45.41 - Moderate persistent asthma with (acute) exacerbation (5) CAD (coronary artery disease) Code(s): I25.10 - ATHSCL HEART DISEASE OF [place] CORONARY ARTERY W/O ANG PCTRS Qualifiers: Coronary Disease-Associated Artery/Lesion type: [place] artery [place] vs. transplanted heart: [place] heart Associated angina: without angina Qualified Code(s): I25.10 - Atherosclerotic heart disease of [place] coronary artery without angina pectoris (6) CHF exacerbation Code(s): I50.9 - HEART FAILURE, UNSPECIFIED Qualifiers: Congestive heart failure type: diastolic Qualified Code(s): I50.33 - Acute on chronic diastolic (congestive) heart failure (7) COPD exacerbation Code(s): J44.1 - CHRONIC OBSTRUCTIVE PULMONARY DISEASE W (ACUTE) EXACERBATION
--- NOTE | 2016-03-30 12:48 | PN ---
Progress Note (short form) - Note Progress Note: PULMONARY AWAKE/[place] UNCOMFORTABLE AND DYSPNEIC CONGESTED NONPRODUCTIVE COUGH AFEBRILE PALE DISTANT B/L BREATH SOUNDS L>R/SCATTERED RHONCHI S1S2 OBESE SOFT NO EDEMA LABS/MEDS/NOTES/IMAGING/MICRO REVIEWED A/P Acute COPD Exacerbation Chronic Hypoxic Respiratory Failure UTI Suprapubic Catheter CAD Atrial fibrillation DANK - BiPAP at night and PRN during day - Agree with Morphine to relieve dyspnea - inhaled bronchodilators - continue medrol at current dose, slow taper - chest PT - completed antibiotics - continue lasix - monitor urine output, creatinine - DVT prophylaxis - DNR/DNI/CONSIDER PALLIATIVE CARE Corrie POTTER MD
[2016-03-31] MEDS: ALBUTEROL SO4 0.083% IH SOL 2.5 MG/3 ML VIAL.NEB. NEB SCH ×7 (00:30→22:24)
[2016-03-31] MEDS: FUROSEMIDE 40 MG/4 ML INJECTABLE VIAL IVPUSH SCH ×2 (05:48→15:15)
[2016-03-31] MEDS: morphine CARPU-JECT 2 MG/1 ML DISP.SYRIN IVPUSH PRN ×3 (06:59→22:20)
[2016-03-31] MEDS: INSULIN SLIDING SCALE (NOVOLOG) 1 VIAL SQ SCH ×3 (07:00→17:53)
[2016-03-31] MEDS: INSULIN DETEMIR 100 UNITS/ML MDV SQ SCH ×2 (07:00→23:50)
[2016-03-31 08:36] LABS: BASOPHIL 0.6 % (0-2.0); MEAN CELL VOLUME 81.6 fl (80-96); MEAN PLT VOLUME 8.3 fl (7.5-11.1); PLATELET COUNT 200 K/MM3 (134-434); RDW 18.3 % (11.9-15.9); WHITE BLOOD COUNT 15.2 K/mm3 (4.0-10.0)
[2016-03-31] MEDS: AMINO ACIDS/PROTEIN HYDROLYS SUGAR-FREE 30 ML PACKET PO SCH ×2 (08:38→17:54)
[2016-03-31 09:05] LABS: ANION GAP 8 (8-16); BILIRUBIN,TOTAL 0.8 mg/dL (0.2-1.0); CALCIUM 9.6 mg/dL (8.5-10.1); CO2 38 mmol/L (21-32); CREATININE 0.8 mg/dL (0.7-1.3); GLUCOSE,RANDOM 108 mg/dL (74-106); SGOT/AST 16 U/L (15-37); SGPT/ALT 30 U/L (12-78)
[2016-03-31 09:06] LABS: ALK PHOS 104 U/L (45-117)
--- NOTE | 2016-03-31 09:54 | PN ---
Progress Note (short form) - Note Progress Note: PULMONARY AWAKE/[place]PER[place] UNCOMFORTABLE AND DYSPNEIC LESS CONGESTED NONPRODUCTIVE COUGH AFEBRILE PALE DISTANT B/L BREATH SOUNDS L>R/SCATTERED RHONCHI S1S2 OBESE SOFT NO EDEMA LABS/MEDS/NOTES/IMAGING/MICRO REVIEWED A/P Acute COPD Exacerbation Chronic Hypoxic Respiratory Failure UTI Suprapubic Catheter CAD Atrial fibrillation DANK - BiPAP at night and PRN during day - Agree with Morphine to relieve dyspnea - inhaled bronchodilators - continue medrol at current dose, slow taper - chest PT - completed antibiotics - continue lasix - monitor urine output, creatinine - DVT prophylaxis - DNR/DNI/CONSIDER PALLIATIVE CARE Corrie POTTER MD
[2016-03-31] MEDS: methylPREDNISolone NA SUCC 40 MG/1 ML VIAL IVPB SCH ×2 (09:58→22:21)
[2016-03-31] MEDS: HEPARIN NA (PORCINE) 5,000 UNITS/ML 1ML VIAL SQ SCH ×2 (09:58→22:32)
[2016-03-31] MEDS: POTASSIUM CHLORIDE 40 MEQ/30 ML UNIT DOSE CUP PO SCH ×2 (09:59→22:30)
[2016-03-31] MEDS: ESCITALOPRAM OXALATE 20 MG TABLET (FP) PO SCH (09:59)
[2016-03-31] MEDS: DOCUSATE SODIUM 100 MG CAPSULE (FP) PO SCH ×2 (09:59→22:29)
[2016-03-31] MEDS: GABAPENTIN 300 MG CAPSULE (FP) PO SCH ×4 (10:00→22:31)
[2016-03-31] MEDS: amLODIPine BESYLATE 5 MG TABLET (FP) PO SCH (10:00)
[2016-03-31] MEDS: CLOPIDOGREL BISULFATE 75 MG TABLET (FP) PO SCH (10:00)
[2016-03-31] MEDS: guaiFENesin 600 MG TABLET.ER (FP) PO SCH ×2 (10:00→22:30)
[2016-03-31] MEDS: NYSTATIN 100,000 UNIT/GM TOPICAL CREAM 15 GM TUBE TP SCH ×2 (10:00→23:34)
[2016-03-31] MEDS: MULTIVITAMINS (DAILY MVI) TABLET (FP) PO SCH (10:01)
[2016-03-31] MEDS: PANTOPRAZOLE 40 MG TABLET (FP) PO SCH (10:01)
[2016-03-31] MEDS: MONTELUKAST NA 10 MG TABLET PO SCH (10:01)
[2016-03-31] MEDS: SOLIFENACIN SUCCINATE 5 MG TAB (FP) PO SCH (10:01)
--- NOTE | 2016-03-31 11:57 | PN ---
Progress Note (short form) - Note Progress Note: pt remains weak/ lethargic./ moderate distress. daughter at bedside pulmonary f/u noted/ appreciated Vital Signs Temp 98.2 F 03/31/16 09:00 Pulse 109 H 03/31/16 09:00 Resp 20 03/31/16 09:00 BP 148/75 03/31/16 09:00 Pulse Ox 98 03/29/16 18:10 Intake & Output 03/30/16 03/30/16 03/31/16 11:59 23:59 11:59 Intake Total 390 600 Output Total 200 500 400 Balance 190 100 -400 Weight 197 lb 8 oz 194 lb 8 oz Intake: IVPB 30 Oral 360 200 Oral Supplement 400 Output: Urine 200 500 400 Supra Pubic Tube 200 500 400 Other: Voiding Method Indwelling Catheter Indwelling Catheter # Unmeasured Voids Supra Pubic Tube 600 Bowel Movement Yes Yes No # Bowel Movements 3 2 0 Weight Measurement Method Built in Bedscale Built in Bedscale Active Medications Acetaminophen (Tylenol -) 650 mg PO Q6H PRN PRN Reason: FEVER OR PAIN Last Admin: 03/27/16 18:53 Dose: 650 mg Acetaminophen (Tylenol -) 325 mg PO Q12H PRN PRN Reason: FEVER OR PAIN Acetylcysteine (Mucomyst 20 Oral / Inh Use Only*) 100 mg IH Q4HWA [facility] Last Admin: 03/29/16 17:28 Dose: Not Given Albuterol Sulfate (Ventolin 0.083% Nebulizer Soln -) 1 amp NEB Q3H [facility] Last Admin: 03/30/16 07:29 Dose: 1 amp Amino Acids (Prostat Sugar-Free Packet -) 30 ml PO BID@0800,1730 [facility] Last Admin: 03/30/16 08:56 Dose: Not Given Amlodipine Besylate (Norvasc -) 5 mg PO DAILY [facility] Last Admin: 03/30/16 10:37 Dose: Not Given Clopidogrel Bisulfate (Plavix -) 75 mg PO DAILY [facility] Last Admin: 03/30/16 10:37 Dose: Not Given Docusate Sodium (Colace -) 100 mg PO BID [facility] Last Admin: 03/30/16 10:35 Dose: Not Given Escitalopram Oxalate (Lexapro -) 20 mg PO DAILY [facility] Last Admin: 03/30/16 10:36 Dose: Not Given Furosemide (Lasix Injection -) 40 mg IVPUSH BID@0600,1400 [facility] Last Admin: 03/30/16 06:11 Dose: 40 mg Gabapentin (Neurontin -) 300 mg PO QID [facility] Last Admin: 03/30/16 10:36 Dose: Not Given Guaifenesin (Mucinex -) 600 mg PO BID [facility] Last Admin: 03/30/16 10:36 Dose: Not Given Heparin Sodium (Porcine) (Heparin -) 5,000 unit SQ BID [facility] Last Admin: 03/30/16 10:34 Dose: 5,000 unit Insulin Aspart (Novolog Vial Sliding Scale -) 1 vial SQ TIDAC [facility] PRN Reason: Protocol Last Admin: 03/30/16 10:44 Dose: 2 units Insulin Detemir (Levemir Vial) 24 units SQ AM [facility] Last Admin: 03/30/16 06:12 Dose: 24 units Insulin Detemir (Levemir Vial) 20 units SQ HS [facility] Last Admin: 03/29/16 22:59 Dose: 20 units Methylprednisolone Sodium Succinate (Solu-Medrol -) 40 mg IVPB BID [facility] Last Admin: 03/30/16 10:34 Dose: 40 mg Montelukast Sodium (Singulair -) 10 mg PO DAILY [facility] Last Admin: 03/30/16 10:37 Dose: Not Given Morphine Sulfate (Morphine Injection -) 2 mg IVPUSH Q6H PRN PRN Reason: PAIN Last Admin: 03/30/16 06:53 Dose: 2 mg Multivitamins/Minerals/Vitamin C (Tab-A-Vit -) 1 tab PO DAILY [facility] Last Admin: 03/30/16 10:38 Dose: Not Given Nystatin (Mycostatin Cream -) 1 applic TP BID [facility] Last Admin: 03/30/16 10:36 Dose: 1 applic Pantoprazole Sodium (Protonix -) 40 mg PO DAILY [facility] Last Admin: 03/30/16 10:37 Dose: Not Given Potassium Chloride (Kcl Oral Solution -) 20 meq PO BID [facility] Last Admin: 03/30/16 10:35 Dose: Not Given Scopolamine HBr (Transderm-Scop -) 1 patch TD Q72H [facility] Last Admin: 03/29/16 10:33 Dose: 1 patch Solifenacin (Vesicare -) 5 mg PO DAILY [facility] Last Admin: 03/30/16 10:38 Dose: Not Given CBC, BMP 03/31/16 07:00 03/31/16 07:00 PHYSICAL EXAMINATION: Constitutional: Yes: Lethargic but arousable. / moderate distress Cardiovascular: Yes: Regular Rate and Rhythm Respiratory: Yes: Diminished Gastrointestinal: Yes: Normal Bowel Sounds, Soft, Abdomen, Obese, Other ( ventral hernia). No: Distention, Tenderness Edema: No Psychiatric: Yes: Lethargic but arousable. ASSESSMENT & PLAN: - multiple problems as listed - continue present care - morphine for comfort / respiratory distress. - Condition poor - Discussed with daughter also today. Problem List - Problems (1) Recurrent UTI (urinary tract infection) Code(s): N39.0 - URINARY TRACT INFECTION, SITE NOT SPECIFIED (2) Urinary tract infection Code(s): N39.0 - URINARY TRACT INFECTION, SITE NOT SPECIFIED Qualifiers: Urinary tract infection type: acute cystitis Hematuria presence: with hematuria Qualified Code(s): N30.01 - Acute cystitis with hematuria (3) Acute on chronic respiratory failure with hypoxia and hypercapnia Code(s): J96.21 - ACUTE AND CHRONIC RESPIRATORY FAILURE WITH HYPOXIA J96.22 - ACUTE AND CHRONIC RESPIRATORY FAILURE WITH HYPERCAPNIA (4) Asthma Code(s): J45.909 - UNSPECIFIED ASTHMA, UNCOMPLICATED Qualifiers: Asthma severity: moderate persistent Asthma complication type: with acute exacerbation Qualified Code(s): J45.41 - Moderate persistent asthma with (acute) exacerbation (5) CAD (coronary artery disease) Code(s): I25.10 - ATHSCL HEART DISEASE OF [place] CORONARY ARTERY W/O ANG PCTRS Qualifiers: Coronary Disease-Associated Artery/Lesion type: [place] artery [place] vs. transplanted heart: [place] heart Associated angina: without angina Qualified Code(s): I25.10 - Atherosclerotic heart disease of [place] coronary artery without angina pectoris (6) CHF exacerbation Code(s): I50.9 - HEART FAILURE, UNSPECIFIED Qualifiers: Congestive heart failure type: diastolic Qualified Code(s): I50.33 - Acute on chronic diastolic (congestive) heart failure (7) COPD exacerbation Code(s): J44.1 - CHRONIC OBSTRUCTIVE PULMONARY DISEASE W (ACUTE) EXACERBATION
[2016-03-31] MEDS ORDERED: ALBUTEROL SO4 0.083% IH SOL 2.5 MG/3 ML VIAL.NEB. NEB SCH (12:30)
[2016-03-31] MEDS: LORAZEPAM CARPU-JECT 2 MG/ML DISP.SYRIN IM PRN (16:36)
[2016-03-31] MEDS: LIDOCAINE 5% TOPICAL PATCH TP SCH (16:40)
[2016-04-01] MEDS: LORAZEPAM CARPU-JECT 2 MG/ML DISP.SYRIN IM PRN ×3 (00:10→18:11)
[2016-04-01] MEDS: morphine CARPU-JECT 2 MG/1 ML DISP.SYRIN IVPUSH PRN ×3 (03:16→18:12)
[2016-04-01] MEDS: FUROSEMIDE 40 MG/4 ML INJECTABLE VIAL IVPUSH SCH ×2 (06:31→14:30)
[2016-04-01] MEDS: INSULIN DETEMIR 100 UNITS/ML MDV SQ SCH (06:38)
[2016-04-01] MEDS: INSULIN SLIDING SCALE (NOVOLOG) 1 VIAL SQ SCH ×3 (06:39→17:46)
[2016-04-01] MEDS: ALBUTEROL SO4 0.083% IH SOL 2.5 MG/3 ML VIAL.NEB. NEB SCH ×5 (06:45→23:25)
--- NOTE | 2016-04-01 09:11 | PN ---
Progress Note (short form) - Note Progress Note: Drowsy but arousable on 40% VM O2. Apparently was on BiPAP overnight. Appears weak/deconditioned. Intake & Output 03/29/16 03/30/16 03/31/16 04/01/16 23:59 23:59 23:59 23:59 Intake Total 650 990 400 Output Total 8348 757 2806 300 Balance -800 290 -900 -300 Weight 196 lb 8 oz 197 lb 8 oz 194 lb 8 oz Last Vital Signs Temp Pulse Resp BP Pulse Ox 97.5 F L 123 H 20 155/92 96 04/01/16 06:51 04/01/16 06:51 04/01/16 06:51 04/01/16 06:51 03/31/16 21:00 Active Medications Acetaminophen (Tylenol -) 650 mg PO Q6H PRN PRN Reason: FEVER OR PAIN Last Admin: 03/27/16 18:53 Dose: 650 mg Acetaminophen (Tylenol -) 325 mg PO Q12H PRN PRN Reason: FEVER OR PAIN Acetylcysteine (Mucomyst 20 Oral / Inh Use Only*) 100 mg IH Q4HWA [facility] Last Admin: 03/29/16 17:28 Dose: Not Given Albuterol Sulfate (Ventolin 0.083% Nebulizer Soln -) 1 amp NEB Q4HWA [facility] Last Admin: 04/01/16 06:45 Dose: 1 amp Amino Acids (Prostat Sugar-Free Packet -) 30 ml PO BID@0800,1730 [facility] Last Admin: 03/31/16 17:54 Dose: Not Given Amlodipine Besylate (Norvasc -) 5 mg PO DAILY [facility] Last Admin: 03/31/16 10:00 Dose: Not Given Clopidogrel Bisulfate (Plavix -) 75 mg PO DAILY [facility] Last Admin: 03/31/16 10:00 Dose: Not Given Docusate Sodium (Colace -) 100 mg PO BID [facility] Last Admin: 03/31/16 22:29 Dose: Not Given Escitalopram Oxalate (Lexapro -) 20 mg PO DAILY [facility] Last Admin: 03/31/16 09:59 Dose: Not Given Furosemide (Lasix Injection -) 40 mg IVPUSH BID@0600,1400 [facility] Last Admin: 04/01/16 06:31 Dose: 40 mg Gabapentin (Neurontin -) 300 mg PO QID [facility] Last Admin: 03/31/16 22:31 Dose: Not Given Guaifenesin (Mucinex -) 600 mg PO BID [facility] Last Admin: 03/31/16 22:30 Dose: Not Given Heparin Sodium (Porcine) (Heparin -) 5,000 unit SQ BID [facility] Last Admin: 03/31/16 22:32 Dose: 5,000 unit Insulin Aspart (Novolog Vial Sliding Scale -) 1 vial SQ TIDAC [facility] PRN Reason: Protocol Last Admin: 04/01/16 06:39 Dose: 6 units Insulin Detemir (Levemir Vial) 24 units SQ AM [facility] Last Admin: 04/01/16 06:38 Dose: 24 units Insulin Detemir (Levemir Vial) 20 units SQ HS [facility] Last Admin: 03/31/16 23:50 Dose: 20 units Lidocaine (Lidoderm Patch -) 1 patch TP DAILY [facility] Last Admin: 03/31/16 16:40 Dose: Not Given Lorazepam (Ativan Injection -) 1 mg IM Q6H PRN PRN Reason: AGITATION Last Admin: 04/01/16 00:10 Dose: 1 mg Methylprednisolone Sodium Succinate (Solu-Medrol -) 40 mg IVPB BID [facility] Last Admin: 03/31/16 22:21 Dose: 40 mg Montelukast Sodium (Singulair -) 10 mg PO DAILY [facility] Last Admin: 03/31/16 10:01 Dose: Not Given Morphine Sulfate (Morphine Injection -) 2 mg IVPUSH Q4H PRN PRN Reason: PAIN Last Admin: 04/01/16 03:16 Dose: 2 mg Multivitamins/Minerals/Vitamin C (Tab-A-Vit -) 1 tab PO DAILY [facility] Last Admin: 03/31/16 10:01 Dose: Not Given Nystatin (Mycostatin Cream -) 1 applic TP BID [facility] Last Admin: 03/31/16 23:34 Dose: 1 applic Pantoprazole Sodium (Protonix -) 40 mg PO DAILY [facility] Last Admin: 03/31/16 10:01 Dose: Not Given Potassium Chloride (Kcl Oral Solution -) 20 meq PO BID [facility] Last Admin: 03/31/16 22:30 Dose: Not Given Scopolamine HBr (Transderm-Scop -) 1 patch TD Q72H [facility] Last Admin: 03/29/16 10:33 Dose: 1 patch Solifenacin (Vesicare -) 5 mg PO DAILY [facility] Last Admin: 03/31/16 10:01 Dose: Not Given Gen: Mildly tachypneic on 40% VM O2 Heart: RRR Lung: scattered rhonchi, mild scattered expiratory wheezing Abd: soft, nontender Ext: no edema Laboratory Results - last 24 hr 03/31/16 03/31/16 03/31/16 07:00 12:45 17:52 Sodium 139 Potassium 3.5 D Chloride 93 L Carbon Dioxide 38 H Anion Gap 8 BUN 32 H Creatinine 0.8 Creat Clearance w eGFR > 60 POC Glucometer 59 114 Random Glucose 108 H D Calcium 9.6 Total Bilirubin 0.8 AST 16 D ALT 30 Alkaline Phosphatase 104 Total Protein 6.0 L Albumin 3.0 L 04/01/16 06:37 Sodium Potassium Chloride Carbon Dioxide Anion Gap BUN Creatinine Creat Clearance w eGFR POC Glucometer 258 Random Glucose Calcium Total Bilirubin AST ALT Alkaline Phosphatase Total Protein Albumin A/P Acute COPD Exacerbation Acute on Chronic Hypoxic Respiratory Failure UTI Suprapubic Catheter CAD Atrial fibrillation DANK - VM 40% during day - BiPAP at night and PRN - inhaled bronchodilators - chest PT - Decrease Medrol - ABX per ID - Lasix - DVT prophylaxis - Consider Palliative Care evaluation Dr Cuadra Problem List - Problems (1) Recurrent UTI (urinary tract infection) Code(s): N39.0 - URINARY TRACT INFECTION, SITE NOT SPECIFIED (2) Acute on chronic respiratory failure with hypoxia and hypercapnia Code(s): J96.21 - ACUTE AND CHRONIC RESPIRATORY FAILURE WITH HYPOXIA J96.22 - ACUTE AND CHRONIC RESPIRATORY FAILURE WITH HYPERCAPNIA (3) CAD (coronary artery disease) Code(s): I25.10 - ATHSCL HEART DISEASE OF [place] CORONARY ARTERY W/O ANG PCTRS Qualifiers: Coronary Disease-Associated Artery/Lesion type: [place] artery [place] vs. transplanted heart: [place] heart Associated angina: without angina Qualified Code(s): I25.10 - Atherosclerotic heart disease of [place] coronary artery without angina pectoris (4) COPD exacerbation Code(s): J44.1 - CHRONIC OBSTRUCTIVE PULMONARY DISEASE W (ACUTE) EXACERBATION (5) Depression Code(s): F32.9 - MAJOR DEPRESSIVE DISORDER, SINGLE EPISODE, UNSPECIFIED (6) Diabetes Code(s): E11.9 - TYPE 2 DIABETES MELLITUS WITHOUT COMPLICATIONS (7) History of ESBL Klebsiella pneumoniae infection Code(s): Z86.19 - PERSONAL HISTORY OF OTHER INFECTIOUS AND PARASITIC DISEASES (8) Hypoxia Code(s): R09.02 - HYPOXEMIA (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 Code(s): Z22.322 - CARRIER OR SUSPECTED CARRIER OF METHICILLIN RESIS STAPH (10) Neurogenic bladder Code(s): N31.9 - NEUROMUSCULAR DYSFUNCTION OF [place], UNSPECIFIED (11) Obstructive sleep apnea Code(s): G47.33 - OBSTRUCTIVE SLEEP APNEA (ADULT) (PEDIATRIC) (12) Restrictive lung disease Code(s): J98.4 - OTHER DISORDERS OF LUNG (13) SOB (shortness of breath) Code(s): R06.02 - SHORTNESS OF BREATH (14) A-fib Code(s): I48.91 - UNSPECIFIED ATRIAL FIBRILLATION Qualifiers: Atrial fibrillation type: chronic Qualified Code(s): I48.2 - Chronic atrial fibrillation (15) Anemia Code(s): D64.9 - ANEMIA, UNSPECIFIED (16) Anxiety Code(s): F41.9 - ANXIETY DISORDER, UNSPECIFIED (17) Coronary arteriosclerosis Code(s): I25.10 - ATHSCL HEART DISEASE OF [place] CORONARY ARTERY W/O ANG PCTRS (18) History of atrial fibrillation Code(s): Z86.79 - PERSONAL HISTORY OF OTHER DISEASES OF THE CIRCULATORY SYSTEM (19) Hypertension Code(s): I10 - ESSENTIAL (PRIMARY) HYPERTENSION (20) Venous stasis dermatitis of both lower extremities Code(s): I83.11 - VARICOSE VEINS OF RIGHT LOWER EXTREMITY WITH INFLAMMATION I83.12 - VARICOSE VEINS OF LEFT LOWER EXTREMITY WITH INFLAMMATION
--- NOTE | 2016-04-01 09:45 | PN ---
Progress Note (short form) - Note Progress Note: SUBJECTIVE: Patient seen and examined. Condition remains the same. Weak and lethargic. OBJECTIVE: Vital Signs - 8 hr 04/01/16 06:51 Temperature 97.5 F L Pulse Rate 123 H Respiratory 20 Rate Blood Pressure 155/92 Intake & Output 03/31/16 04/01/16 04/01/16 23:59 07:59 15:59 Intake Total 200 Output Total 400 300 Balance -200 -300 Intake: Oral 200 Output: Urine 400 300 Supra Pubic Tube 400 300 Other: Voiding Method Incontinent Bowel Movement No Active Medications Acetaminophen (Tylenol -) 650 mg PO Q6H PRN PRN Reason: FEVER OR PAIN Last Admin: 03/27/16 18:53 Dose: 650 mg Acetaminophen (Tylenol -) 325 mg PO Q12H PRN PRN Reason: FEVER OR PAIN Acetylcysteine (Mucomyst 20 Oral / Inh Use Only*) 100 mg IH Q4HWA [facility] Last Admin: 03/29/16 17:28 Dose: Not Given Albuterol Sulfate (Ventolin 0.083% Nebulizer Soln -) 1 amp NEB Q4HWA [facility] Last Admin: 04/01/16 06:45 Dose: 1 amp Amino Acids (Prostat Sugar-Free Packet -) 30 ml PO BID@0800,1730 [facility] Last Admin: 03/31/16 17:54 Dose: Not Given Amlodipine Besylate (Norvasc -) 5 mg PO DAILY [facility] Last Admin: 03/31/16 10:00 Dose: Not Given Clopidogrel Bisulfate (Plavix -) 75 mg PO DAILY [facility] Last Admin: 03/31/16 10:00 Dose: Not Given Docusate Sodium (Colace -) 100 mg PO BID [facility] Last Admin: 03/31/16 22:29 Dose: Not Given Escitalopram Oxalate (Lexapro -) 20 mg PO DAILY [facility] Last Admin: 03/31/16 09:59 Dose: Not Given Furosemide (Lasix Injection -) 40 mg IVPUSH BID@0600,1400 [facility] Last Admin: 04/01/16 06:31 Dose: 40 mg Gabapentin (Neurontin -) 300 mg PO QID [facility] Last Admin: 03/31/16 22:31 Dose: Not Given Guaifenesin (Mucinex -) 600 mg PO BID [facility] Last Admin: 03/31/16 22:30 Dose: Not Given Heparin Sodium (Porcine) (Heparin -) 5,000 unit SQ BID [facility] Last Admin: 03/31/16 22:32 Dose: 5,000 unit Insulin Aspart (Novolog Vial Sliding Scale -) 1 vial SQ TIDAC [facility] PRN Reason: Protocol Last Admin: 04/01/16 06:39 Dose: 6 units Insulin Detemir (Levemir Vial) 24 units SQ AM [facility] Last Admin: 04/01/16 06:38 Dose: 24 units Insulin Detemir (Levemir Vial) 20 units SQ HS [facility] Last Admin: 03/31/16 23:50 Dose: 20 units Lidocaine (Lidoderm Patch -) 1 patch TP DAILY [facility] Last Admin: 03/31/16 16:40 Dose: Not Given Lorazepam (Ativan Injection -) 1 mg IM Q6H PRN PRN Reason: AGITATION Last Admin: 04/01/16 00:10 Dose: 1 mg Methylprednisolone Sodium Succinate (Solu-Medrol -) 40 mg IVPB DAILY [facility] Montelukast Sodium (Singulair -) 10 mg PO DAILY [facility] Last Admin: 03/31/16 10:01 Dose: Not Given Morphine Sulfate (Morphine Injection -) 2 mg IVPUSH Q4H PRN PRN Reason: PAIN Last Admin: 04/01/16 03:16 Dose: 2 mg Multivitamins/Minerals/Vitamin C (Tab-A-Vit -) 1 tab PO DAILY [facility] Last Admin: 03/31/16 10:01 Dose: Not Given Nystatin (Mycostatin Cream -) 1 applic TP BID [facility] Last Admin: 03/31/16 23:34 Dose: 1 applic Pantoprazole Sodium (Protonix -) 40 mg PO DAILY [facility] Last Admin: 03/31/16 10:01 Dose: Not Given Potassium Chloride (Kcl Oral Solution -) 20 meq PO BID [facility] Last Admin: 03/31/16 22:30 Dose: Not Given Scopolamine HBr (Transderm-Scop -) 1 patch TD Q72H [facility] Last Admin: 03/29/16 10:33 Dose: 1 patch Solifenacin (Vesicare -) 5 mg PO DAILY [facility] Last Admin: 03/31/16 10:01 Dose: Not Given CBC, BMP 03/31/16 07:00 03/31/16 07:00 Laboratory Results - last 24 hr 03/31/16 03/31/16 04/01/16 12:45 17:52 06:37 POC Glucometer 59 114 258 PHYSICAL EXAMINATION: Constitutional: Yes: Lethargic but arousable. / Moderate distress Cardiovascular: Yes: Regular Rate and Rhythm Respiratory: Yes: Diminished Gastrointestinal: Yes: Normal Bowel Sounds, Soft, Abdomen, Obese, Other ( ventral hernia). No: Distention, Tenderness Edema: No Psychiatric: Yes: Lethargic but arousable. ASSESSMENT & PLAN: - Multiple problems as listed. - Continue present care. - Morphine for comfort / respiratory distress. - Condition poor. - Will continue to talk to the family regarding further plan of care. - Palliative care nurse to follow. Problem List - Problems (1) Recurrent UTI (urinary tract infection) Code(s): N39.0 - URINARY TRACT INFECTION, SITE NOT SPECIFIED (2) Urinary tract infection Code(s): N39.0 - URINARY TRACT INFECTION, SITE NOT SPECIFIED Qualifiers: Urinary tract infection type: acute cystitis Hematuria presence: with hematuria Qualified Code(s): N30.01 - Acute cystitis with hematuria (3) Acute on chronic respiratory failure with hypoxia and hypercapnia Code(s): J96.21 - ACUTE AND CHRONIC RESPIRATORY FAILURE WITH HYPOXIA J96.22 - ACUTE AND CHRONIC RESPIRATORY FAILURE WITH HYPERCAPNIA (4) Asthma Code(s): J45.909 - UNSPECIFIED ASTHMA, UNCOMPLICATED Qualifiers: Asthma severity: moderate persistent Asthma complication type: with acute exacerbation Qualified Code(s): J45.41 - Moderate persistent asthma with (acute) exacerbation (5) CAD (coronary artery disease) Code(s): I25.10 - ATHSCL HEART DISEASE OF [place] CORONARY ARTERY W/O ANG PCTRS Qualifiers: Coronary Disease-Associated Artery/Lesion type: [place] artery [place] vs. transplanted heart: [place] heart Associated angina: without angina Qualified Code(s): I25.10 - Atherosclerotic heart disease of [place] coronary artery without angina pectoris (6) CHF exacerbation Code(s): I50.9 - HEART FAILURE, UNSPECIFIED Qualifiers: Congestive heart failure type: diastolic Qualified Code(s): I50.33 - Acute on chronic diastolic (congestive) heart failure (7) COPD exacerbation Code(s): J44.1 - CHRONIC OBSTRUCTIVE PULMONARY DISEASE W (ACUTE) EXACERBATION Documentation prepared by Kendra España, acting as a nurses medical assistants phlebotomists for Demetrius Bradley MD.
[2016-04-01] MEDS ORDERED: methylPREDNISolone NA SUCC 40 MG/1 ML VIAL IVPB SCH (10:00)
[2016-04-01] MEDS: AMINO ACIDS/PROTEIN HYDROLYS SUGAR-FREE 30 ML PACKET PO SCH ×2 (11:20→17:40)
[2016-04-01] MEDS: POTASSIUM CHLORIDE 40 MEQ/30 ML UNIT DOSE CUP PO SCH (11:21)
[2016-04-01] MEDS: HEPARIN NA (PORCINE) 5,000 UNITS/ML 1ML VIAL SQ SCH ×2 (11:21→21:55)
[2016-04-01] MEDS: DOCUSATE SODIUM 100 MG CAPSULE (FP) PO SCH (11:21)
[2016-04-01] MEDS: guaiFENesin 600 MG TABLET.ER (FP) PO SCH (11:22)
[2016-04-01] MEDS: NYSTATIN 100,000 UNIT/GM TOPICAL CREAM 15 GM TUBE TP SCH (11:22)
[2016-04-01] MEDS: ESCITALOPRAM OXALATE 20 MG TABLET (FP) PO SCH (11:22)
[2016-04-01] MEDS: LIDOCAINE 5% TOPICAL PATCH TP SCH ×2 (11:22→14:21)
[2016-04-01] MEDS: GABAPENTIN 300 MG CAPSULE (FP) PO SCH ×3 (11:23→17:40)
[2016-04-01] MEDS: amLODIPine BESYLATE 5 MG TABLET (FP) PO SCH (11:23)
[2016-04-01] MEDS: CLOPIDOGREL BISULFATE 75 MG TABLET (FP) PO SCH (11:24)
[2016-04-01] MEDS: MONTELUKAST NA 10 MG TABLET PO SCH (11:24)
[2016-04-01] MEDS: PANTOPRAZOLE 40 MG TABLET (FP) PO SCH (11:24)
[2016-04-01] MEDS: MULTIVITAMINS (DAILY MVI) TABLET (FP) PO SCH (11:25)
[2016-04-01] MEDS: SOLIFENACIN SUCCINATE 5 MG TAB (FP) PO SCH (11:25)
[2016-04-01] MEDS ORDERED: PT OWN MED DRAWER 7, Y5N ONE (14:15)
[2016-04-01] MEDS: SCOPOLAMINE HYDROBROMIDE 1 PATCH PATCH.TD72 TD SCH (14:20)
[2016-04-01] MEDS ORDERED: MORPHINE 100 MG in SODIUM CHLORIDE 98 ML IVPB SCH (20:00)
[2016-04-01] MEDS ORDERED: ACETAMINOPHEN 650 MG SUPP.RECT PR ONE (22:31)
--- NOTE | 2016-04-01 23:58 | HOSP ---
Physical Examination Vital Signs: Vital Signs Temperature 100.1 F H 04/01/16 18:27 Pulse Rate 146 H 04/01/16 18:27 Respiratory Rate 20 04/01/16 18:27 Blood Pressure 135/84 04/01/16 18:27 O2 Sat by Pulse Oximetry (%) 96 03/31/16 21:00 Labs: CBC, BMP 03/31/16 07:00 03/31/16 07:00 Hospitalist Encounter Assessment: I was paged by the nurse for expiration. Upon arrival did examination on patient. Not responsive to sternal rub. Pupils nonreactive, fixed and dilated. Not responsive to sternal rub. Pulses not palpable in the carotid, radial, and femoral. No heart sounds or breath sounds heard upon auscultation. Patient at 2335. Family at bedside and were notified. Visit type - Emergency Visit Emergency Visit: No - New Patient This patient is new to me today: Yes Date on this admission: 04/01/16 - Critical Care Critical Care patient: No
[2016-04-02 01:35] VITALS: BP 82/52; PULSE 143; TEMP 103.2
--- NOTE | 2016-04-02 10:15 | DS ---
Physical Examination Vital Signs: Vital Signs Temperature 103.2 F H 04/01/16 22:00 Pulse Rate 143 H 04/01/16 22:00 Respiratory Rate 28 H 04/01/16 22:00 Blood Pressure 82/52 04/01/16 22:00 O2 Sat by Pulse Oximetry (%) 96 03/31/16 21:00 Labs: CBC, BMP 03/31/16 07:00 03/31/16 07:00 Discharge Summary Reason For Visit: UTI Hospital Course: Was admitted for UTi, COPD exacerbation Seen by ID, pulmonary Pt was dependent on BIPAP Had worsening COPD on solumedrol-- not improving Family and pt decided to be DNR pt placed on comfort care Pt 04/01/16 Condition: Guarded - Instructions Referrals: Asya Sharma MD [Primary Care Provider] - Disposition: - Home Medications Comprehensive Discharge Medication List: Ambulatory Orders Arformoterol Tartrate [Brovana -] 1 amp NEB BID amp 02/12/16 Clopidogrel Bisulfate [Plavix -] 75 mg PO DAILY tablet 02/12/16 Escitalopram Oxalate [Lexapro -] 20 mg PO DAILY tablet 02/12/16 Furosemide [Lasix -] 40 mg PO BID@0600,1400 tablet 02/12/16 Gabapentin [Neurontin -] 300 mg PO QID capsule 02/12/16 Insulin (Levemir) [Levemir Vial] 20 units SQ AM ml 02/12/16 Montelukast Na [Singulair -] 10 mg PO DAILY tablet 02/12/16 Pantoprazole Sodium [Protonix -] 40 mg PO DAILY tablet.ec 02/12/16 Albuterol 2.5/Ipratropium 0.5 [Duoneb -] 1 neb IH QID 03/01/16 Amlodipine Besylate [Norvasc -] 5 mg PO DAILY 03/01/16 Docusate Sodium [Colace -] 100 mg PO BID 03/01/16 Insulin (Levemir) [Levemir Vial] 12 units SQ HS 03/01/16 Insulin Lispro [Humalog] 100 unit SQ ASDIR 03/01/16 Oxybutynin Chloride [Oxybutynin Chloride ER] 5 mg PO DAILY 03/01/16 Potassium Chloride Oral Soln [KCl Oral Solution -] 20 meq PO BID 12/16/16 Acetaminophen [Tylenol .Regular Strength -] 325 mg PO Q12H PRN #0 tablet Albuterol 0.083% Nebulizer Sydni [Ventolin 0.083% Nebulizer Soln -] 1 amp NEB Q3H PRN #0 amp 03/09/16 Oxycodone HCl/Acetaminophen [Percocet 10-325 mg Tablet] 1 each PO BID PRN #30 03/09/16 Prednisone [Deltasone -] 40 mg PO DAILY #0 03/09/16
== END 2016-04-01 23:35 | disposition expired | DRG 698 ==
LOC: JER 14:58 → JERBED 19:26 → J8W 21:29
PROVIDERS: ADMIT Internal Medicine; ATTEND Internal Medicine
PROC: 5A09457 Assistance with Respiratory Ventilation, 24-96 Consecutive Hours, Continuous Positive Airway Pressure (ICD-10-PCS; principal; 2016-03-19)
PROC: 0T2BX0Z Change Drainage Device in Bladder, External Approach (ICD-10-PCS; 2016-03-25)
DX: T83.511A Infection and inflammatory reaction due to indwelling urethral catheter, initial encounter (principal); J96.21 Acute and chronic respiratory failure with hypoxia; J96.22 Acute and chronic respiratory failure with hypercapnia; I50.33 Acute on chronic diastolic (congestive) heart failure; J44.1 Chronic obstructive pulmonary disease with (acute) exacerbation; J45.41 Moderate persistent asthma with (acute) exacerbation; I13.0 Hypertensive heart and chronic kidney disease with heart failure and stage 1 through stage 4 chronic kidney disease, or unspecified chronic kidney disease; T83.098A Other mechanical complication of other urinary catheter, initial encounter; N39.0 Urinary tract infection, site not specified; Y84.6 Urinary catheterization as the cause of abnormal reaction of the patient, or of later complication, without mention of misadventure at the time of the procedure; B96.4 Proteus (mirabilis) (morganii) as the cause of diseases classified elsewhere; R31.9 Hematuria, unspecified; Z99.81 Dependence on supplemental oxygen; N40.0 Benign prostatic hyperplasia without lower urinary tract symptoms; D64.9 Anemia, unspecified; Z96.653 Presence of artificial knee joint, bilateral; Z96.642 Presence of left artificial hip joint; N18.9 Chronic kidney disease, unspecified; I25.10 Atherosclerotic heart disease of native coronary artery without angina pectoris; E11.9 Type 2 diabetes mellitus without complications; I25.2 Old myocardial infarction; F32.9 Major depressive disorder, single episode, unspecified; N31.9 Neuromuscular dysfunction of bladder, unspecified; Z22.322 Carrier or suspected carrier of Methicillin resistant Staphylococcus aureus; I48.2 Chronic atrial fibrillation; I83.12 Varicose veins of left lower extremity with inflammation; I83.11 Varicose veins of right lower extremity with inflammation; L89.152 Pressure ulcer of sacral region, stage 2; L89.312 Pressure ulcer of right buttock, stage 2; L89.622 Pressure ulcer of left heel, stage 2; L89.612 Pressure ulcer of right heel, stage 2; G47.33 Obstructive sleep apnea (adult) (pediatric); J98.4 Other disorders of lung; Z66 Do not resuscitate
CPT/HCPCS: 36415; 36600; 71010-TC; 76775-TC; 76856-TC; 80053; 81003; 81015; 82803; 85025; 85027; 87040; 87086; 87186; 93005; 93010; 94640; 94660; 94667; 99284-25; E0372; J1644